=== PATIENT | female | born 1940 | race African-American/Black ===

== ENCOUNTER 2017-02-12 19:25 | Inpatient (IN) ==
[2017-02-12] MEDS ORDERED: FUROSEMIDE 100 MG/10 ML VIAL IV STA (19:47)
[2017-02-12] MEDS ORDERED: ALBUTEROL/IPRATROPIUM 3 ML NEB RESP TX STA (19:47)
--- NOTE | 2017-02-12 19:52 | Emergency Department Note ---
Arrival - Arrival Chief Complaint: Shortness of Breath Stated Complaint: SOB ED Nursing Triage Note: Patient to triage with c/o SOB that started all a sudden around 1600 this afternoon. Patient reports history of CHF and uses home O2. Patient states SOB is worse with excertion. BLE edema noted to triage. deminished breath sounds in triage. Mode of Arrival: Wheelchair Limitations: No Limitations Source: Patient Time Seen by Provider: 02/12/17 19:47 - History of Present Illness HPI Narrative: This 76-year-old black female with long-standing congestive heart failure home O2 dependent presents with complaints of abrupt onset of shortness of breath 4 hours ago. She denies any chest pain, nausea, vomiting, chills, fever, cough, or purulence with this episode. She likewise denies any ill health earlier today or in the past several days. She does have a history of asthma but denies any wheezing with this situation tonight. Currently at rest in bed she appears in no acute distress. Onset (ago): hour(s) (Patient presents 4 hours post onset of symptoms) Allergies/Adverse Reactions: Allergies Allergy/AdvReac Type Severity Reaction Status Date / Time No Known Allergies Allergy Verified 02/12/17 19:37 Home Medications: Home Medications Medication Instructions Recorded Confirmed Type Hydralazine HCl 100 mg PO BID 09/24/14 02/12/17 History Insulin NPH Hum/Reg Insulin Hm 34 unit SUBCUT DAILY W/SUPPER 09/24/14 02/12/17 History [Novolin 70-30 100 Unit/ml Vial] Insulin NPH Hum/Reg Insulin Hm 64 unit SUBCUT QAM 09/24/14 02/12/17 History [Novolin 70-30 100 Unit/ml Vial] Montelukast Tab [Singulair Tab] 10 mg PO QPM 09/24/14 02/12/17 History Potassium Chloride 20 meq PO QAM 09/24/14 02/12/17 History Carvedilol [Coreg] 12.5 mg PO BID 05/31/15 02/12/17 History Fluticasone 50 Mcg Nasal [place] 2 spray BOTH NARES DAILY PRN 02/26/16 02/12/17 History [Flonase Nasal [place]] Latanoprost [Latanoprost 0.005 % 1 drop BOTH EYES BEDTIME 02/26/16 02/12/17 History Oph Soln] Quinapril HCl 40 mg PO QAM 02/26/16 02/12/17 History Albuterol Inhaler [Proventil 1 puff INH Q6H PRN #1 inhaler 06/09/16 02/12/17 Rx Inhaler] Allopurinol 300 mg PO QAM 11/12/16 02/12/17 History Aspirin [Aspirin EC] 81 mg PO QAM 11/12/16 02/12/17 History Furosemide Tab [Lasix Tab] 80 mg PO BID 11/12/16 02/12/17 History Omeprazole 20 mg PO QAM 11/12/16 02/12/17 History Verapamil HCl [Verapamil Tab] 120 mg PO QAM 11/12/16 02/12/17 History Albuterol Sulfate [Albuterol Neb] 3 ml INH TID 02/12/17 02/12/17 History Fluticasone/Salmeterol 500-50 1 puff INH BID 02/12/17 02/12/17 History [Advair 500-50] Polyethylene Glycol Powder 17 gm PO QAM 02/12/17 02/12/17 History [Miralax] Review of System - Review of System 12 point system: reviewed and no additional remarkable complaints except as stated - Review of System Constitutional: Present: as per HPI Respiratory: Present: as per HPI Cardiovascular: Present: as per HPI Gastrointestinal: Present: as per HPI Medical,Surgical,& Family Hx - Medical History Cardio: History of: CHF, Hypertension Neurology: No history of: Seizures Endocrine: History of: Diabetes Mellitus (IDDM), Dyslipidemia, Endocrine Problems (SUPER MORBID OBESITY) Rheumatology: History of;: Gout Respiratory: History of: Asthma Gastrointestinal: History of: GERD, GI Problems (diarrhea) - Surgical History Abdominal Surgeries: Surgical HX of: Cholecystectomy, EGD Reproductive Surgeries: Surgical HX of;: Tubal Ligation - Family History Family History: Reports;: Family Cancer, Family Diabetes, Family Heart Disease, Family Hypertension - Social History Smoking Status: Never smoker Frequency of Alcohol Use: None Type of Drug Use: None Exam Physical Examination: GENERAL: Severely morbidly obese in no acute distress. HEENT: Normocephalic. No trauma. Moist mucous membranes. EOMI. PERRLA. ENT NML NECK: Supple. No adenopathy. CARDIAC: Regular. No murmurs. Heart rate 100 CHEST: Clear to auscultation. No respiratory distress. O2 sat 98% ABDOMEN: Soft. Nontender. Active bowel sounds. EXTREMITIES: No trauma. Normal ROM. 2+ pedal edema. Bilateral stasis dermatitis with early lymphedema SKIN: No diaphoresis. No rash. NEURO: Alert. Neuro intact no focal deficits. Vital Signs: Vital Signs Temperature 98.3 F 02/12/17 19:31 Pulse Rate 94 H 02/12/17 20:44 Respiratory Rate 20 02/12/17 20:44 Blood Pressure 201/139 02/12/17 19:31 O2 Sat by Pulse Oximetry 100 02/12/17 20:44 Course - Reevaluation(s) Reevaluation #1: Advised patient that with her poorly controlled blood pressure and underlying oxygen dependence that she would be best served by hospital admission for mop up treatment of her failure and reevaluation of her medical regimen.. - Consultations Consultation #1: Discussed with the hospitalist service who will admit for further evaluation treatment. Results - Labs CBC & BMP: 02/12/17 19:54 02/12/17 19:54 Labs: I have noted the bump in white blood cell count and borderline creatinine. Otherwise unremarkable laboratory results. - Impressions EKG: Atrial atrial fibrillation at 100. Incomplete right bundle branch block with old septal infarct. No acute injury pattern noted. - Diagnostic Findings Procedure: Chest x-ray: image reviewed by me, report reviewed by me (Mild cardiomegaly with no interval change in comparison with previous film.) Disposition Clinical Impression: Congestive heart failure, Uncontrolled hypertension, Home O2 dependent, Morbidly obese Case discussed with: patient, patient's family Disposition: Still a Patient Condition: Guarded Time of Disposition: 21:46
[2017-02-12] MEDS ORDERED: hydrALAZINE 20 MG/1 ML VIAL IV STA (19:54)
[2017-02-12] MEDS ORDERED: hydrALAZINE 20 MG/1 ML VIAL ONE (20:21)
[2017-02-12] MEDS ORDERED: FUROSEMIDE 100 MG/10 ML VIAL ONE (20:21)
[2017-02-12 20:32] LABS: Basophils % 0.3 % (0.0-0.8); Eosinophils # 0.1 10*3/uL (0.0-0.87); Hematocrit 36.8 VOL% (35.7-47.0); Hemoglobin 11.9 GM/DL (12.0-16.0); Immature Granulocytes % 0.4 %; Immature Granulocytes Absolute 0.06 #; Lymphocytes # 2.3 10*3/uL (1.4-4.0); Mean Corpuscular HGB Conc 32.3 GM/DL (32-36); Mean Corpuscular Hemoglobin 30 PG (27-34); Mean Corpuscular Volume 93.6 FL (87-102); Mean Platelet Volume 11.1 FL (9.6-12.0); Monocytes # 0.9 10*3/uL (0.11-0.8); Monocytes % 6.9 % (1.7-12.7); Neutrophils % 74.4 % (38.7-73.9); Platelet Count 277 T/CUMM (130-400); Red Blood Count 3.93 MC/CUMM (3.8-5.5); Red Cell Distribution Width 15.6 % (9.3-17.3); White Blood Count 13.5 T/CUMM (4-12)
[2017-02-12 20:49] LABS: PT Patient Result 10.1 SECS; Partial Thromboplastin Time 27.3 SECS (0-40)
[2017-02-12 20:51] LABS: Alanine Aminotransferase 36 U/L (13-56); Albumin 3.4 G/DL (3.4-5.0); Alkaline Phosphatase 143 U/L (45-117); Aspartate Amino Transferase 29 U/L (0-37); Blood Urea Nitrogen 22 MG/DL (7-18); Calcium 9.4 MG/DL (8.5-10.1); Glucose 172 MG/DL (74-106); Osmolality,Calculated 287.3 MOS/KG (273-304); Potassium 5.1 MMOL/L (3.5-5.1); Sodium 141 MMOL/L (136-145); Troponin I Only < 0.015 NG/ML (0.00-0.045)
[2017-02-12 21:26] LABS: Apearance,Urine CLEAR (Clear); Bilirubin,Urine Negative (Negative); Blood, Urine Negative (Negative); Glucose,Urine (UA) Negative (Negative); Ketones,Urine Negative (Negative); Mucus,Urine Occasional /LPF (Occasional); Nitrite,Urine Negative (Negative); Protein,Urine 100 MG/DL; Squamous Epithelial Cell,Urine Occasional /HPF (0-10); Urine Color Yellow (Yellow); Urine Specific Gravity 1.011 (1.001-1.035)
--- NOTE | 2017-02-12 22:11 | Hospitalist History & Physical ---
Assessment and Plan (1) Hypertensive crisis Status: Acute Assessment and plan: Patient has uncontrolled HTN which most likely triggered an acute pulmonary edema. Her BUN/Cr are also mildly elevated.Patient states good compliance to meds. Plan Telemetry Serial Cardiac enzymes Resume home meds and adjust doses accordingly IV diuretics TSH,Lipids Echo ASA Nebs treatment Current Visit: Yes (2) Acute dyspnea Status: Acute Assessment and plan: most likely due poorly controlled HTN to r/o ACS vs PE Plan Telemetry Lovenox D-dimer, doppler of the legs, VQ scan if D-dimer is positive IV Lasix, nebs, oxygen ABG Control Bp Serial Cardiac enzymes Current Visit: Yes (3) Acute renal failure (ARF) Status: Acute Assessment and plan: -mild, avoid Nephrotoxics Bmp in am Current Visit: Yes (4) CHF exacerbation Status: Acute Assessment and plan: due to poorly controlled BP Plan See treatment plan above Fluid restriction, Echo Cardiology consult Current Visit: Yes (5) IDDM (insulin dependent diabetes mellitus) Status: Acute Assessment and plan: resume home meds, HbA1c level, SSC and accucheks Current Visit: Yes (6) Dyslipidemia Status: Acute Assessment and plan: will get Lipid profile Current Visit: Yes (7) Gout Status: Acute Assessment and plan: Patient is not currently having acute attacks, will hold off on Allopurinol due to RF for now. Will give [place] bid for prevention for now Current Visit: Yes (8) Atrial fibrillation Status: Acute Assessment and plan: EKG showed Atrial atrial fibrillation at 100 in the ER. This is ?new onset vs paroxysmal. Plan Telemetry Continue bblockers and Lovenox Echo and Cardiology to see Current Visit: Yes History of Present Illness Chief complaint: SOB History of present illness: Ms. Rodriguez is a 76 year old morbidly obese female with a history of CHF on Home 02, HTN, IDDM, dyslipidemia,Gout who was well until around 4pm this afternoon when she developed a sudden onset of SOB which progressively worsened. She denies associated chest pain, chest tightness. No wheezing, nausea, vomiting, palpitations and diaphoresis. She does have an associated orthopnea, PND, and bilateral leg sweliing and pain. There was no cough, fever, chills and rigor.Patient states she used her blood pressure medications as prescribed prior to onset of symptoms.No abdominal pain, swelling or bleeding problems. She denies previous history CAD, Asthma and also denies recent long distance travel and immobility.No history of headaches, photophobia, focal weakness or syncopal episode. Upon arrival to the ER, her blood pressure was high at 201/139 and her labs showed mildly elevated BUN/Cr-22/1.4, WBC-13.5. EKG showed Atrial atrial fibrillation at 100. Incomplete right bundle branch block with old septal infarct. No acute injury pattern noted. Chest x-ray as per ER MD showed Mild cardiomegaly with no interval change in comparison with previous film.Patient was given some breathing treatments,IV hydralazine and IV Lasix and she is on admission for further care. Home Medications Medication Instructions Recorded Confirmed Type Hydralazine HCl 100 mg PO BID 09/24/14 02/12/17 History Insulin NPH Hum/Reg Insulin Hm 34 unit SUBCUT DAILY W/SUPPER 09/24/14 02/12/17 History [Novolin 70-30 100 Unit/ml Vial] Insulin NPH Hum/Reg Insulin Hm 64 unit SUBCUT QAM 09/24/14 02/12/17 History [Novolin 70-30 100 Unit/ml Vial] Montelukast Tab [Singulair Tab] 10 mg PO QPM 09/24/14 02/12/17 History Potassium Chloride 20 meq PO QAM 09/24/14 02/12/17 History Carvedilol [Coreg] 12.5 mg PO BID 05/31/15 02/12/17 History Fluticasone 50 Mcg Nasal [place] 2 spray BOTH NARES DAILY PRN 02/26/16 02/12/17 History [Flonase Nasal [place]] Latanoprost [Latanoprost 0.005 % 1 drop BOTH EYES BEDTIME 02/26/16 02/12/17 History Oph Soln] Quinapril HCl 40 mg PO QAM 02/26/16 02/12/17 History Albuterol Inhaler [Proventil 1 puff INH Q6H PRN #1 inhaler 06/09/16 02/12/17 Rx Inhaler] Allopurinol 300 mg PO QAM 11/12/16 02/12/17 History Aspirin [Aspirin EC] 81 mg PO QAM 11/12/16 02/12/17 History Furosemide Tab [Lasix Tab] 80 mg PO BID 11/12/16 02/12/17 History Omeprazole 20 mg PO QAM 11/12/16 02/12/17 History Verapamil HCl [Verapamil Tab] 120 mg PO QAM 11/12/16 02/12/17 History Albuterol Sulfate [Albuterol Neb] 3 ml INH TID 02/12/17 02/12/17 History Fluticasone/Salmeterol 500-50 1 puff INH BID 02/12/17 02/12/17 History [Advair 500-50] Polyethylene Glycol Powder 17 gm PO QAM 02/12/17 02/12/17 History [Miralax] Allergies Allergy/AdvReac Type Severity Reaction Status Date / Time No Known Allergies Allergy Verified 02/12/17 19:37 Medical,Surgical,& Family Hx - Medical History Cardio: History of: CHF, Hypertension Neurology: No history of: Seizures Endocrine: History of: Diabetes Mellitus (IDDM), Dyslipidemia, Endocrine Problems (SUPER MORBID OBESITY) Rheumatology: History of;: Gout Respiratory: History of: Asthma Gastrointestinal: History of: GERD, GI Problems (diarrhea) - Surgical History Abdominal Surgeries: Surgical HX of: Cholecystectomy, EGD Reproductive Surgeries: Surgical HX of;: Tubal Ligation - Family History Family History: Reports;: Family Cancer, Family Diabetes, Family Heart Disease, Family Hypertension - Social History Smoking Status: Never smoker Frequency of Alcohol Use: None Type of Drug Use: None 12 point system: reviewed and no additional remarkable complaints except as stated Exam - Constitutional Vitals: Period Temp Pulse Resp BP Sys/[place] Pulse Ox Last 24 Hr 98.3 F-98.3 F 94-103 20-26 201-201/139-139 98-100 General appearance: mild distress, morbidly obese - Head Head exam: Present: normal inspection - Respiratory Respiratory exam: Present: decreased breath sounds - Cardiovascular Cardiovascular exam: Present: other (s1 and s2) - GI/Abdominal GI/Abdominal exam: Present: normal bowel sounds - Extremities Exam Extremities exam: Present: edema - Neurological Exam Neurological exam: Present: alert, oriented X3 Results - Labs CBC & BMP: 02/12/17 19:54 02/12/17 19:54 Lab Results: I have reviewed the past 24 hour labs
[2017-02-13] MEDS ORDERED: MORPHINE 2 MG/1 ML SYRINGE IV PRN (00:42)
[2017-02-13] MEDS ORDERED: GLUCAGON 1 MG VIAL IM PRN (00:42)
[2017-02-13] MEDS ORDERED: DEXTROSE 50% 25 GM/50 ML SYRINGE IV PRN (00:42)
[2017-02-13] MEDS ORDERED: ACETAMINOPHEN 325 MG TABLET PO PRN (00:42)
[2017-02-13] MEDS ORDERED: ALBUTEROL 2.5 MG/3 ML NEB RESP TX PRN (00:42)
[2017-02-13] MEDS ORDERED: FLUTICASONE 50 MCG NASAL SPRAY 16 GM BOTTLE BOTH NARES PRN (00:42)
[2017-02-13] MEDS ORDERED: PNEUMOCOCCAL VACCINE (13 VALENT) 0.5 ML SYRINGE IM ONE (00:55)
[2017-02-13] MEDS: CARVEDILOL 12.5 MG TABLET PO SCH ×3 (01:00→21:07)
[2017-02-13 02:06] LABS: ABG HCO3 27.5 MMOL/L (20-26); ABG Oxygen Saturation 95.6 % (95-100); ABG PCO2 46.3 MM HG (35-48); ABG PH 7.391 (7.35-7.45); ABG PO2 76.4 MM HG (80-95); ABG TCO2 28.9 MMOL/L (23-27); Allen Test Positive
[2017-02-13 02:14] LABS: Free T4 (Free Thyroxine) 1.07 NG/DL (0.76-1.46); Troponin I Only < 0.015 NG/ML (0.00-0.045)
[2017-02-13 02:22] LABS: Apearance,Urine CLEAR (Clear); Bilirubin,Urine Negative (Negative); Blood, Urine Moderate mg/dL (Negative); Glucose,Urine (UA) Negative (Negative); Hyaline Casts,Urine 1 /LPF (0-3); Ketones,Urine Negative (Negative); Mucus,Urine Occasional /LPF (Occasional); Nitrite,Urine Negative (Negative); Protein,Urine Negative; RBC,Urine 60 /HPF (0-4); Squamous Epithelial Cell,Urine Occasional /HPF (0-10); Urine Color Colorless (Yellow); Urine Specific Gravity 1.004 (1.001-1.035); Urine Urobilinogen < 2.0 EU/DL (0.2-1.0); WBC,Urine 10 /HPF (0-6)
[2017-02-13 07:46] LABS: Bilirubin,Total 1.2 MG/DL (0.2-1.0); Calcium 9.6 MG/DL (8.5-10.1); Magnesium 2.1 MG/DL (1.8-2.4); Osmolality,Calculated 287.3 MOS/KG (273-304); Potassium 4.4 MMOL/L (3.5-5.1); Risk Ratio 2.65; Total Protein 7.1 G/DL (6.4-8.3); Troponin I Only 0.015 NG/ML (0.00-0.045)
--- NOTE | 2017-02-13 07:53 | EKG Report ---
Stationary ECG Study [facility] ER Test Date: 02/12/2017 7:31:08 PM Pat Name: SHAQUILLE POND Department: Room: 519 Gender: F Feller Seam Operator: Karen : 1940 Requested by: Tye Somers Order Number: [id number] Reading MD: MICHELLE WILSON Intervals [place] Rate: 103 P: 999 UT: 0 QRS: -78 QRSD: 113 T: 86 QT: 337 QTc: 397 Interpretive Statements ATRIAL FIBRILLATION WITH RAPID VENTRICULAR RESPONSE LOW QRS VOLTAGE IN CHEST LEADS CONSISTENT WITH PULMONARY DISEASE INCOMPLETE RIGHT BUNDLE BRANCH BLOCK LEFT ANTERIOR FASCICULAR BLOCK Electronically Signed On 02-14-17 11:32:43 CDT by MICHELLE WILSON [email or web address]
--- NOTE | 2017-02-13 08:02 | XRay Report ---
Exam: XR chest 2V Date: 02/12/2017 7:48 PM Indication: Shortness of breath Comparison: 01/02/2017 Technical: PA lateral Findings: Cardiomegaly is present. Tiny low volume effusions are present with minimal atelectatic change in the bases bilaterally. Oxygen tubing is present. Degenerative change present thoracic spine. Previous cholecystectomy. No pneumothorax. Impression: 1. Cardiomegaly with tiny low volume effusions and basilar atelectasis PROCEDURE INTERPRETED AT [facility] DEPARTMENT OF RADIOLOGY Final Report Signed by: Dr. Joaquin Moise
[2017-02-13 08:52] LABS: Basophils % 0.3 % (0.0-0.8); Eosinophils # 0.1 10*3/uL (0.0-0.87); Eosinophils % 0.8 % (0.00-10.9); Hematocrit 33.8 VOL% (35.7-47.0); Immature Granulocytes % 0.5 %; Immature Granulocytes Absolute 0.07 #; Lymphocytes # 2.1 10*3/uL (1.4-4.0); Mean Corpuscular HGB Conc 32.5 GM/DL (32-36); Mean Corpuscular Hemoglobin 30 PG (27-34); Mean Corpuscular Volume 92.3 FL (87-102); Mean Platelet Volume 11.3 FL (9.6-12.0); Monocytes # 1.2 10*3/uL (0.11-0.8); Monocytes % 8.7 % (1.7-12.7); Neutrophils # 9.8 10*3/uL (1.4-7.4); Neutrophils % 73.7 % (38.7-73.9); Platelet Count 254 T/CUMM (130-400); Red Blood Count 3.66 MC/CUMM (3.8-5.5); Red Cell Distribution Width 15.5 % (9.3-17.3); White Blood Count 13.3 T/CUMM (4-12)
[2017-02-13] MEDS ORDERED: PANTOPRAZOLE 40 MG TABLET PO SCH (09:00)
[2017-02-13] MEDS: VERAPAMIL 120 MG TABLET PO SCH (09:06)
[2017-02-13] MEDS: COLCHICINE 0.6 MG TABLET PO SCH ×2 (09:06→21:07)
[2017-02-13] MEDS: PANTOPRAZOLE 40 MG TABLET PO SCH (09:07)
[2017-02-13] MEDS: INSULIN NPH/REGULAR 70/30 100 UNIT/ML SUBCUT SCH (09:07)
[2017-02-13] MEDS: ASPIRIN EC 81 MG TABLET PO SCH (09:07)
[2017-02-13] MEDS: POLYETHYLENE GLYCOL POWDER 17 GM PACK PO SCH (09:07)
[2017-02-13] MEDS: ENOXAPARIN 150 MG/ML SYRINGE SUBCUT SCH ×2 (09:07→21:07)
[2017-02-13] MEDS: INSULIN REGULAR 100 UNIT/ML SUBCUT SCH ×4 (09:08→21:08)
[2017-02-13] MEDS: FLUTICASONE/SALMETEROL 500-50 DISKUS 14 DOSE INH SCH ×2 (09:33→21:08)
--- NOTE | 2017-02-13 10:41 | Ultrasound Report ---
Exam: US venous doppler LE BI Indication: Leg pain and swelling Date: 02/13/2017 12:42 AM Findings: Grayscale color flow duplex/Doppler imaging and spectral analysis waveform imaging was performed with real-time ultrasound with image stored and captured. The right common femoral, superficial femoral, popliteal saphenous veins are patent with normal augmentation and compression. There is no evidence of popliteal or Briseno's cyst. Normal wave form analysis present. Normal color flow The left common femoral, superficial femoral, popliteal saphenous veins are patent with normal augmentation and compression. There is evidence of popliteal or Briseno's cyst. This measures 2.6 x 5 x 1.3 cm Normal wave form analysis present. Normal color flow Impression: 1. No DVT 2. Left popliteal Briseno's cyst measuring up to 5 cm PROCEDURE INTERPRETED AT [facility] DEPARTMENT OF RADIOLOGY Final Report Signed by: Dr. Joaquin Moise
--- NOTE | 2017-02-13 12:47 | Hospitalist Progress Note ---
Assessment and Plan (1) Acute dyspnea Status: Acute Assessment and plan: Continue current plan of care. Supplemental O2. Doppler performed today no evidence of DVT. Continue IV Lasix and nebulizer. Current Visit: Yes (2) Acute renal failure (ARF) Status: Acute Assessment and plan: Avoid nephrotoxic agents. Daily BMPs Current Visit: Yes (3) Atrial fibrillation Status: Acute Assessment and plan: Cardiology consult pending. Continue cardiac monitoring. Patient controlled rate. Continue Lovenox and beta blockers Current Visit: Yes (4) CHF exacerbation Status: Acute Assessment and plan: IV Lasix. Cardiology to see. Current Visit: Yes Hospitalist: Subjective Interval history: 76-year-old black female patient with a history of CHF, hypertension, diabetes, dyslipidemia that presented to the ED for evaluation of sudden onset of shortness of breath. On admission noted to be in mild renal failure with CHF and uncontrolled hypertension. Patient was seen and examined this morning with daughter present at the bedside. Patient alert and oriented with no complaints. Dyspnea has resolved. Supplemental O2 use. Blood pressure has decreased. We will continue current plan of care. Consult Sleep medicine for possible outpatient sleep study for patient. Exam - Constitutional Vitals: Period Temp Pulse Resp BP Sys/[place] Pulse Ox Last 24 Hr 97.4 F-98.4 F 84-114 19-26 142-201/69-139 97-100 General appearance: no acute distress, over weight - Head Head exam: Present: normal inspection, normocephalic - Eye Eye exam: Present: EOMI Pupils: Present: HIRAL - Respiratory Respiratory exam: Present: clear to auscultation bilaterally. Absent: wheezes - Cardiovascular Cardiovascular exam: Present: regular rate and rhythm - GI/Abdominal GI/Abdominal exam: Present: normal bowel sounds, soft. Absent: tenderness - Extremities Exam Extremities exam: Present: normal inspection, normal capillary refill - Neurological Exam Neurological exam: Present: alert, oriented X3 - Psychiatric Psychiatric exam: Present: normal affect, normal mood Results - Labs CBC & BMP: 02/13/17 08:31 02/13/17 06:39 Lab Results: I have reviewed the past 24 hour labs
--- NOTE | 2017-02-13 15:08 | Cardiology Consult Note ---
Assessment and Plan - Time spent with patient Time spent with patient: Greater than 30 minutes (Chart review, exam, documentation) (1) Diabetes Status: Chronic Current Visit: Yes Qualifiers: Diabetes mellitus type: type 2 (2) Atrial fibrillation Status: Chronic Current Visit: Yes Qualifiers: Atrial fibrillation type: chronic Qualified Code(s): I48.2 - Chronic atrial fibrillation (3) CHF exacerbation Status: Chronic Assessment and plan: Heart failure with preserved ejection fraction Current Visit: Yes Qualifiers: Congestive heart failure type: diastolic Qualified Code(s): I50.33 - Acute on chronic diastolic (congestive) heart failure (4) Dyslipidemia Status: Acute Current Visit: Yes (5) Gout Status: Chronic Current Visit: Yes Qualifiers: Gout site: foot (6) Hypertensive crisis Status: Acute Current Visit: Yes History of Present Illness - Data of Consult Patient: known to practice within the last 3 years Consult date: 02/13/17 Requesting Physician: Gisela Gandhi - Consult Narrative Reason for consult: Heart failure History of present illness: Ms. Rodriguez is a 76 year old female morbidly obese diabetic female with long- standing history of severe LVH chronic right bundle branch block and chronic atrial fibrillation with diastolic heart failure. She has a history of recurrent heart failure with preserved ejection fraction. She presents with tachypalpitations and hypertension and heart failure. She has been admitted to the hospitalist service and I have been consulted to see. The patient had transthoracic echo on 08/26/2016 showed ejection fraction 55% with indeterminate systolic parameters because of her atrial fibrillation she also had a right ventricular systolic pressure estimated to be 39 mmHg plus the right atrial pressure she had mild mitral regurgitation trace pulmonic insufficiency and mild tricuspid insufficiency the atria are both enlarged. There was calcific aortic valve with excellent excursion no evidence of stenosis or insufficiency. CC: Rayray Handley Jr., MD - Home Medications and Allergies Home Medications: Home Medications Medication Instructions Recorded Confirmed Type Hydralazine HCl 100 mg PO BID 09/24/14 02/12/17 History Insulin NPH Hum/Reg Insulin Hm 34 unit SUBCUT DAILY W/SUPPER 09/24/14 02/12/17 History [Novolin 70-30 100 Unit/ml Vial] Insulin NPH Hum/Reg Insulin Hm 64 unit SUBCUT QAM 09/24/14 02/12/17 History [Novolin 70-30 100 Unit/ml Vial] Montelukast Tab [Singulair Tab] 10 mg PO QPM 09/24/14 02/12/17 History Potassium Chloride 20 meq PO QAM 09/24/14 02/12/17 History Carvedilol [Coreg] 12.5 mg PO BID 05/31/15 02/12/17 History Fluticasone 50 Mcg Nasal [place] 2 spray BOTH NARES DAILY PRN 02/26/16 02/12/17 History [Flonase Nasal [place]] Latanoprost [Latanoprost 0.005 % 1 drop BOTH EYES BEDTIME 02/26/16 02/12/17 History Oph Soln] Quinapril HCl 40 mg PO QAM 02/26/16 02/12/17 History Albuterol Inhaler [Proventil 1 puff INH Q6H PRN #1 inhaler 06/09/16 02/12/17 Rx Inhaler] Allopurinol 300 mg PO QAM 11/12/16 02/12/17 History Aspirin [Aspirin EC] 81 mg PO QAM 11/12/16 02/12/17 History Furosemide Tab [Lasix Tab] 80 mg PO BID 11/12/16 02/12/17 History Omeprazole 20 mg PO QAM 11/12/16 02/12/17 History Verapamil HCl [Verapamil Tab] 120 mg PO QAM 11/12/16 02/12/17 History Albuterol Sulfate [Albuterol Neb] 3 ml INH TID 02/12/17 02/12/17 History Fluticasone/Salmeterol 500-50 1 puff INH BID 02/12/17 02/12/17 History [Advair 500-50] Polyethylene Glycol Powder 17 gm PO QAM 02/12/17 02/12/17 History [Miralax] Allergies/Adverse Reactions: Allergies Allergy/AdvReac Type Severity Reaction Status Date / Time No Known Allergies Allergy Verified 02/12/17 19:37 - Constitutional Constitutional: Present: fatigue, increased appetite, weakness, weight gain. Absent: anorexia, chills, fever(s) - EENT Eyes: Absent: blurry vision, diplopia Ears: Absent: decreased hearing, ear discharge Nose, mouth and throat: Absent: dysphagia, hoarseness, lip swelling, neck mass, neck pain, sore throat - Cardiovascular Cardiovascular: Present: dyspnea, dyspnea on exertion, edema, palpitations, PND. Absent: chest pain at rest - Respiratory Respiratory: Present: dyspnea on exertion. Absent: cough - Gastrointestinal Gastrointestinal: Present: dysphagia. Absent: abdominal pain, dyspepsia - Genitourinary Genitourinary: Absent: difficulty urinating, dysuria - Musculoskeletal Musculoskeletal: Present: arthralgias, muscle weakness, myalgias, other (Pain in her right great toe) - Neurological Neurological: Absent: abnormal gait, disequilibrium, radicular pain, syncope - Psychiatric Psychiatric: Present: anxiety, depression. Absent: confusion, memory loss - Endocrine Endocrine: Present: heat intolerance. Absent: cold intolerance - Hematologic/Lymphatic Hematologic/Lymphatic: Absent: easy bleeding, easy bruising Medical,Surgical,& Family Hx - Medical History Cardio: History of: CHF (With preserved ejection fraction), Hypertension Psychological: No history of: Anxiety Disorders Neurology: No history of: Seizures HEENT: History of: Glaucoma Endocrine: History of: Diabetes Mellitus (IDDM), Dyslipidemia, Endocrine Problems (SUPER MORBID OBESITY) Rheumatology: History of;: Gout Respiratory: History of: Asthma Gastrointestinal: History of: GERD, GI Problems (diarrhea) Musculoskeletal: History of: Musculoskeletal Problems (Pain in the right great toe with history of gout) Other: History of: Miscellaneous Medical Problems (Cyst removed surgically from left shoulder) - Surgical History Thoracic Surgeries: Patient denies;: Lobectomy Neurologic Surgeries: Patient denies: Neurologic Surgery Abdominal Surgeries: Surgical HX of: Cholecystectomy, EGD Reproductive Surgeries: Surgical HX of;: Tubal Ligation Patient denies;: Genitourinary Surgery - Family History Family History: Reports;: Family Cancer, Family Diabetes, Family Heart Disease, Family Hypertension - Social History Smoking Status: Never smoker Frequency of Alcohol Use: None Type of Drug Use: None Lives With:: Spouse Functional capacity: independent ambulation Physical Examination Vital Signs Temp Pulse Resp BP Pulse Ox 98.3 F 103 H 26 H 201/139 98 02/12/17 19:31 02/12/17 19:31 02/12/17 19:31 02/12/17 19:31 02/12/17 19:31 General: Present: Appears Well (Morbidly obese no acute distress) HEENT: Present: Other (ASA 4 airway) Neck: Present: Supple Neck, Midline Trachea Cardiac: Present: Irregularly Regular (Atrial fibrillation with controlled rate) Lungs: Present: Normal Exam Neuro: Present: Cranial Nerve 2-12 Intact Abdomen: Present: Soft, Active Bowel Sounds, Unremarkable Skin: Present: Clear Musculoskeletal: Present: Erythematous Joints (Right great toe is mildly erythematous and tender to touch) Extremities: Present: Edema (Trace edema) Result/EKG - Labs CBC & BMP: 02/13/17 08:31 02/13/17 06:39 Labs: Laboratory Results - last 24 hr 02/12/17 02/12/17 02/12/17 19:54 19:54 19:54 WBC 13.5 H RBC 3.93 Hgb 11.9 L Hct 36.8 MCV 93.6 MCH 30 MCHC 32.3 RDW 15.6 Plt Count 277 MPV 11.1 Neut % (Auto) 74.4 H Lymph % (Auto) 17.0 L [place] % (Auto) 6.9 Eos % (Auto) 1.0 Baso % (Auto) 0.3 Neut # (Auto) 10.0 H Lymph # (Auto) 2.3 [place] # (Auto) 0.9 H Eos # (Auto) 0.1 Baso # (Auto) 0.0 Immature Gran % 0.4 Nucleated RBC % 0.0 Immature Gran # 0.06 Nucleated RBCs # 0.00 Immature Plt Fraction 0.0 INR 1.0 PT Patient/Control Mix 10.1 D-Dimer, Quantitative Circ Anticoag PTT 27.3 ABG pH ABG pCO2 ABG pO2 ABG HCO3 ABG Total CO2 ABG O2 Saturation ABG Base Excess FiO2 Sodium 141 Potassium 5.1 Chloride 109 H Carbon Dioxide 27 Anion Gap 10.1 BUN 22 H Creatinine 1.40 H GFR Calculation 60 BUN/Creatinine Ratio 15.00 Glucose 172 H POC Glucose Calculated Osmolality 287.3 Calcium 9.4 Magnesium Total Bilirubin 0.60 AST 29 ALT 36 Alkaline Phosphatase 143 H Total Creatine Kinase 100 CK-MB (CK-2) 2.2 Troponin I < 0.015 B-Natriuretic Peptide Total Protein 8.0 Albumin 3.4 Globulin 4.6 H Albumin/Globulin Ratio 0.7 L Triglycerides Cholesterol LDL Cholesterol VLDL Cholesterol HDL Cholesterol Heart Disease Risk Ratio Free T4 TSH 3rd Generation Urine Color Urine Appearance Urine pH Ur Specific [place] Urine Protein Urine Glucose (UA) Urine Ketones Urine Blood Urine Nitrate Urine Bilirubin Urine Urobilinogen Urine Leukocytes Urine RBC Urine WBC Ur Squamous Epith Cells Hyaline Casts Urine Mucus Ur Culture Indicated? 02/12/17 02/12/17 02/13/17 19:54 19:54 00:06 WBC RBC Hgb Hct MCV MCH MCHC RDW Plt Count MPV Neut % (Auto) Lymph % (Auto) [place] % (Auto) Eos % (Auto) Baso % (Auto) Neut # (Auto) Lymph # (Auto) [place] # (Auto) Eos # (Auto) Baso # (Auto) Immature Gran % Nucleated RBC % Immature Gran # Nucleated RBCs # Immature Plt Fraction INR PT Patient/Control Mix D-Dimer, Quantitative Circ Anticoag PTT ABG pH ABG pCO2 ABG pO2 ABG HCO3 ABG Total CO2 ABG O2 Saturation ABG Base Excess FiO2 Sodium Potassium Chloride Carbon Dioxide Anion Gap BUN Creatinine GFR Calculation BUN/Creatinine Ratio Glucose POC Glucose 162 H Calculated Osmolality Calcium Magnesium Total Bilirubin AST ALT Alkaline Phosphatase Total Creatine Kinase CK-MB (CK-2) Troponin I B-Natriuretic Peptide 140 H Total Protein Albumin Globulin Albumin/Globulin Ratio Triglycerides Cholesterol LDL Cholesterol VLDL Cholesterol HDL Cholesterol Heart Disease Risk Ratio Free T4 TSH 3rd Generation Urine Color Yellow Urine Appearance Clear Urine pH 6.0 Ur Specific [place] 1.011 Urine Protein 100 Urine Glucose (UA) Negative Urine Ketones Negative Urine Blood Negative Urine Nitrate Negative Urine Bilirubin Negative Urine Urobilinogen 2.0 H Urine Leukocytes Negative Urine RBC Urine WBC Ur Squamous Epith Cells Occasional Hyaline Casts Urine Mucus Occasional Ur Culture Indicated? Not indicated 02/13/17 02/13/17 02/13/17 01:05 01:28 01:28 WBC RBC Hgb Hct MCV MCH MCHC RDW Plt Count MPV Neut % (Auto) Lymph % (Auto) [place] % (Auto) Eos % (Auto) Baso % (Auto) Neut # (Auto) Lymph # (Auto) [place] # (Auto) Eos # (Auto) Baso # (Auto) Immature Gran % Nucleated RBC % Immature Gran # Nucleated RBCs # Immature Plt Fraction INR PT Patient/Control Mix D-Dimer, Quantitative 1.2 Circ Anticoag PTT ABG pH ABG pCO2 ABG pO2 ABG HCO3 ABG Total CO2 ABG O2 Saturation ABG Base Excess FiO2 Sodium Potassium Chloride Carbon Dioxide Anion Gap BUN Creatinine GFR Calculation BUN/Creatinine Ratio Glucose POC Glucose Calculated Osmolality Calcium Magnesium Total Bilirubin AST ALT Alkaline Phosphatase Total Creatine Kinase 72 D CK-MB (CK-2) 1.8 Troponin I < 0.015 B-Natriuretic Peptide Total Protein Albumin Globulin Albumin/Globulin Ratio Triglycerides Cholesterol LDL Cholesterol VLDL Cholesterol HDL Cholesterol Heart Disease Risk Ratio Free T4 1.07 TSH 3rd Generation Urine Color Colorless Urine Appearance Clear Urine pH 5.0 Ur Specific [place] 1.004 Urine Protein Negative Urine Glucose (UA) Negative Urine Ketones Negative Urine Blood Moderate Urine Nitrate Negative Urine Bilirubin Negative Urine Urobilinogen < 2.0 H Urine Leukocytes Small H Urine RBC 60 Urine WBC 10 Ur Squamous Epith Cells Occasional Hyaline Casts 1 Urine Mucus Occasional Ur Culture Indicated? Ordered separately 02/13/17 02/13/17 02/13/17 01:28 02:00 06:39 WBC RBC Hgb Hct MCV MCH MCHC RDW Plt Count MPV Neut % (Auto) Lymph % (Auto) [place] % (Auto) Eos % (Auto) Baso % (Auto) Neut # (Auto) Lymph # (Auto) [place] # (Auto) Eos # (Auto) Baso # (Auto) Immature Gran % Nucleated RBC % Immature Gran # Nucleated RBCs # Immature Plt Fraction INR PT Patient/Control Mix D-Dimer, Quantitative Circ Anticoag PTT ABG pH 7.391 ABG pCO2 46.3 ABG pO2 76.4 L ABG HCO3 27.5 H ABG Total CO2 28.9 H ABG O2 Saturation 95.6 ABG Base Excess 2.0 FiO2 28.00 Sodium 141 Potassium 4.4 Chloride 106 Carbon Dioxide 32 Anion Gap 7.4 BUN 21 H Creatinine 1.50 H GFR Calculation 57 BUN/Creatinine Ratio 14.00 Glucose 177 H POC Glucose Calculated Osmolality 287.3 Calcium 9.6 Magnesium 2.1 Total Bilirubin 1.20 H AST 15 ALT 29 Alkaline Phosphatase 131 H Total Creatine Kinase CK-MB (CK-2) Troponin I B-Natriuretic Peptide Total Protein 7.1 Albumin 3.0 L Globulin 4.1 H Albumin/Globulin Ratio 0.7 L Triglycerides 70 Cholesterol 127 LDL Cholesterol 66.0 VLDL Cholesterol 14.0 HDL Cholesterol 48 Heart Disease Risk Ratio 2.65 Free T4 TSH 3rd Generation 5.680 H Urine Color Urine Appearance Urine pH Ur Specific [place] Urine Protein Urine Glucose (UA) Urine Ketones Urine Blood Urine Nitrate Urine Bilirubin Urine Urobilinogen Urine Leukocytes Urine RBC Urine WBC Ur Squamous Epith Cells Hyaline Casts Urine Mucus Ur Culture Indicated? 02/13/17 02/13/17 02/13/17 06:39 06:39 07:13 WBC RBC Hgb Hct MCV MCH MCHC RDW Plt Count MPV Neut % (Auto) Lymph % (Auto) [place] % (Auto) Eos % (Auto) Baso % (Auto) Neut # (Auto) Lymph # (Auto) [place] # (Auto) Eos # (Auto) Baso # (Auto) Immature Gran % Nucleated RBC % Immature Gran # Nucleated RBCs # Immature Plt Fraction INR PT Patient/Control Mix D-Dimer, Quantitative Circ Anticoag PTT ABG pH ABG pCO2 ABG pO2 ABG HCO3 ABG Total CO2 ABG O2 Saturation ABG Base Excess FiO2 Sodium Potassium Chloride Carbon Dioxide Anion Gap BUN Creatinine GFR Calculation BUN/Creatinine Ratio Glucose POC Glucose 206 H Calculated Osmolality Calcium Magnesium Total Bilirubin AST ALT Alkaline Phosphatase Total Creatine Kinase 59 CK-MB (CK-2) 1.5 Troponin I 0.015 B-Natriuretic Peptide 158 H Total Protein Albumin Globulin Albumin/Globulin Ratio Triglycerides Cholesterol LDL Cholesterol VLDL Cholesterol HDL Cholesterol Heart Disease Risk Ratio Free T4 TSH 3rd Generation Urine Color Urine Appearance Urine pH Ur Specific [place] Urine Protein Urine Glucose (UA) Urine Ketones Urine Blood Urine Nitrate Urine Bilirubin Urine Urobilinogen Urine Leukocytes Urine RBC Urine WBC Ur Squamous Epith Cells Hyaline Casts Urine Mucus Ur Culture Indicated? 02/13/17 02/13/17 08:31 11:23 WBC 13.3 H RBC 3.66 L Hgb 11.0 L Hct 33.8 L MCV 92.3 MCH 30 MCHC 32.5 RDW 15.5 Plt Count 254 MPV 11.3 Neut % (Auto) 73.7 Lymph % (Auto) 16.0 L [place] % (Auto) 8.7 Eos % (Auto) 0.8 Baso % (Auto) 0.3 Neut # (Auto) 9.8 H Lymph # (Auto) 2.1 [place] # (Auto) 1.2 H Eos # (Auto) 0.1 Baso # (Auto) 0.0 Immature Gran % 0.5 Nucleated RBC % 0.0 Immature Gran # 0.07 Nucleated RBCs # 0.00 Immature Plt Fraction 0.0 INR PT Patient/Control Mix D-Dimer, Quantitative Circ Anticoag PTT ABG pH ABG pCO2 ABG pO2 ABG HCO3 ABG Total CO2 ABG O2 Saturation ABG Base Excess FiO2 Sodium Potassium Chloride Carbon Dioxide Anion Gap BUN Creatinine GFR Calculation BUN/Creatinine Ratio Glucose POC Glucose 183 H Calculated Osmolality Calcium Magnesium Total Bilirubin AST ALT Alkaline Phosphatase Total Creatine Kinase CK-MB (CK-2) Troponin I B-Natriuretic Peptide Total Protein Albumin Globulin Albumin/Globulin Ratio Triglycerides Cholesterol LDL Cholesterol VLDL Cholesterol HDL Cholesterol Heart Disease Risk Ratio Free T4 TSH 3rd Generation Urine Color Urine Appearance Urine pH Ur Specific [place] Urine Protein Urine Glucose (UA) Urine Ketones Urine Blood Urine Nitrate Urine Bilirubin Urine Urobilinogen Urine Leukocytes Urine RBC Urine WBC Ur Squamous Epith Cells Hyaline Casts Urine Mucus Ur Culture Indicated? - EKG EKG results: interpreted by me (Atrial fibrillation)
[2017-02-13] MEDS ORDERED: INSULIN NPH/REGULAR 70/30 100 UNIT/ML SUBCUT SCH (17:00)
[2017-02-13] MEDS ORDERED: MONTELUKAST 10 MG TABLET PO SCH (21:00)
[2017-02-13] MEDS ORDERED: LATANOPROST 0.005% OPH SOLN 2.5 ML BOTTLE BOTH EYES SCH (21:00)
[2017-02-14] MEDS: ASPIRIN EC 81 MG TABLET PO SCH (08:23)
[2017-02-14] MEDS: COLCHICINE 0.6 MG TABLET PO SCH (08:23)
[2017-02-14] MEDS: VERAPAMIL 120 MG TABLET PO SCH (08:23)
[2017-02-14] MEDS: CARVEDILOL 12.5 MG TABLET PO SCH (08:23)
[2017-02-14] MEDS: POLYETHYLENE GLYCOL POWDER 17 GM PACK PO SCH (08:24)
[2017-02-14] MEDS: INSULIN REGULAR 100 UNIT/ML SUBCUT SCH ×2 (08:24→12:13)
[2017-02-14] MEDS: PANTOPRAZOLE 40 MG TABLET PO SCH (08:24)
[2017-02-14] MEDS: INSULIN NPH/REGULAR 70/30 100 UNIT/ML SUBCUT SCH (08:25)
[2017-02-14] MEDS: FLUTICASONE/SALMETEROL 500-50 DISKUS 14 DOSE INH SCH (08:25)
--- NOTE | 2017-02-14 08:32 | Discharge Summary ---
<Ulises Leslieedwarddiorсергей - Last Filed: 02/14/17 08:21> Hospital Course - Hospital Course Hospital Course: Ms. Rodriguez is a 76-year-old morbidly obese black female with a history of hypertension, CHF, diabetes, dyslipidemia, and gout who presents to the ED on for evaluation of progressively worsening shortness of breath. Patient denies chest pain and tightness but complained of associated with the pain you, P ENT, and bilateral leg swelling as well as pain. In the ED patient was noted to be hypertensive with a blood pressure of 201/139. Her labs revealed BUN and creatinine of 22/1.4 respectively, and WBC of 13.5. EKG revealed A. fib at a rate of 100. Chest x-ray showed mild cardiomegaly. Patient was admitted to the hospitalist service for further evaluation and treatment. Cardiology was consulted to see for afib.Patient was treated with IV hydralazine and IV Lasix, bblockers, Ca-channel blockers and Lovenox.Sliding scale insulin was started for management of diabetes. The patient had transthoracic echo on 08/26/2016 showed ejection fraction 55% with indeterminate systolic parameters . Patient's shortness of breath has resolved.Her heart rate and blood pressure improved. Her vitals are stable. Patient stable to be discharged today. She requests for portable home o2, we will get her home health and set up an outpatient sleep study. Diagnosis - Discharge Diagnosis (1) Acute dyspnea Status: Acute (2) Acute renal failure (ARF) Status: Acute (3) Atrial fibrillation Status: Chronic (4) CHF exacerbation Status: Chronic Specialty Discharge - Follow Up or Referrals Follow up with: Yancy Hernandez MD [Physician] - 03/02/17 3:40 pm Luna Garcia MD [Physician] - 03/01/17 10:00 am (sleep study clinic will send papers to address... please fill out and bring with you to appointment..) TONE LUIS NP [[facility]] - 02/28/17 10:30 am Discharge Plan - Discharge Data Disposition: Home Health Service - Discharge Medications New Carvedilol [Coreg] 25 mg PO BID #60 tablet Apixaban [Eliquis] 5 mg PO BID #60 tablet Acetaminophen Tab [Tylenol Tab] 325 mg PO Q4H PRN tablet PRN Reason: fever, headache/body aches Colchicine [Colcrys] 0.6 mg PO BID #60 tablet Continue Montelukast Tab [Singulair Tab] 10 mg PO QPM Potassium Chloride 20 meq PO QAM Insulin NPH Hum/Reg Insulin Hm [NovoLIN 70/30] 34 unit SUBCUT DAILY W/SUPPER Insulin NPH Hum/Reg Insulin Hm [NovoLIN 70/30] 64 unit SUBCUT QAM Hydralazine HCl 100 mg PO BID Latanoprost [Latanoprost 0.005 % Oph Soln] 1 drop BOTH EYES BEDTIME Fluticasone 50 Mcg Nasal [place] [Flonase Nasal [place]] 2 spray BOTH NARES DAILY PRN PRN Reason: Sinus Symptoms Verapamil HCl [Verapamil Tab] 120 mg PO QAM Aspirin [Aspirin EC] 81 mg PO QAM Fluticasone/Salmeterol 500-50 [Advair 500-50] 1 puff INH BID Polyethylene Glycol Powder [Miralax] 17 gm PO QAM Albuterol Sulfate [Albuterol Neb] 3 ml INH TID Albuterol Inhaler [Proventil Inhaler] 1 puff INH Q6H PRN #1 inhaler PRN Reason: Shortness Of Breath/Wheezing Omeprazole 20 mg PO QAM Furosemide Tab [Lasix Tab] 80 mg PO BID Discontinued Carvedilol [Coreg] 12.5 mg PO BID Quinapril HCl 40 mg PO QAM Allopurinol 300 mg PO QAM - Follow Up or Referral Follow Up: Yancy Hernandez MD [Physician] - 03/02/17 3:40 pm Luna Garcia MD [Physician] - 03/01/17 10:00 am (sleep study clinic will send papers to address... please fill out and bring with you to appointment..) TONE LUIS NP [[facility]] - 02/28/17 10:30 am - Forms/Instructions Instructions: Heart Failure (DC), Dyspnea (GEN), Hypertensive Crisis (DC) Exam - Constitutional Vitals: Period Temp Pulse Resp BP Sys/[place] Pulse Ox Last 24 Hr 96.6 F-99.3 F 92-108 20-22 139-167/54-80 96-100 Discharge Results Procedures and tests throughout hospitalization: Pending Orders 02/13/17 01:05 Urine Culture Stat 02/13/17 01:28 Blood Culture Routine Labs on day of discharge: Labs from last 24 hours 02/14/17 02/13/17 02/13/17 11:42 18:57 17:13 POC Glucose 167 H 186 H 114 H 02/13/17 16:37 POC Glucose 66 L Preliminary micro results at discharge 02/13/17 01:05 Urine Culture - Preliminary Urine,[place] No Growth at 24 hours. 02/13/17 01:28 Blood Culture - Preliminary Blood No growth at 1 day 02/13/17 01:28 Blood Culture - Preliminary Blood No growth at 1 day DS: Provider Date of admission: 02/12/17 22:20 Primary care physician: . Lorri PCP Attending physician on admission: Gisela Gandhi MD Consults: 02/13/17 00:42 Consult to Physician [CONS] Routine Comment: CHF Consulting Provider: Consult to Specialist Group: Cardiology When should Consulting Provider be notified: In am Person Notified: Ban Date Notified: 02/13/17 Time Notified: 07:49 02/14/17 08:42 Consult to Case Mgmt/Social Srvs [CONS] Routine Reason for Case Mgmt/Social Srvs: Home Health Equipment Consult Comment: portable O2 Discharging clinician: Fatoumata Leslie NP <Gisela Gandhi - Last Filed: 02/14/17 14:21> Hospital Course - Time spent with patient Time with patient DS: Greater than 30 minutes (time spent greater than 35mins) Diagnosis - Discharge Diagnosis (1) Hypertensive crisis Status: Acute (2) Acute dyspnea Status: Acute (3) Acute renal failure (ARF) Status: Acute (4) CHF exacerbation Status: Chronic (5) IDDM (insulin dependent diabetes mellitus) Status: Acute (6) Dyslipidemia Status: Acute (7) Gout Status: Chronic (8) Atrial fibrillation Status: Chronic Discharge Plan - Discharge Data Condition at Discharge: Stable Discharge Diet: heart healthy Activity: resume usual activities as tolerated - Forms/Instructions Additional Discharge Instructions: Follow with PCP in 1week. Outpatient sleep study. Exam - Constitutional General appearance: no acute distress, morbidly obese - Head Head exam: Present: normal inspection - Respiratory Respiratory exam: Present: decreased breath sounds - Cardiovascular Cardiovascular exam: Present: irregular rhythm - GI/Abdominal GI/Abdominal exam: Present: normal bowel sounds - Extremities Exam Extremities exam: Present: normal inspection
--- NOTE | 2017-02-14 08:41 | Cardiology Progress Note ---
Cardiology - PN: Subj Interval history: Cardiology note 76-year-old admitted with increasing shortness of breath and elevated blood pressure. Feeling better today. Troponin negative 3. Patient has history of diastolic dysfunction. Recent echo shows ejection fraction of 55% with normal RV function and mild TR PA pressure 40 IrRegular rhythm no murmur Decreased breath sounds but clear Abdomen benign Trace leg edema Impression Chronic hypertension with inadequate control Diastolic dysfunction and recurrent heart failure Chronic atrial fibrillation Long-standing diabetes Morbid obesity 162 kg Plan Increase carvedilol 25 mg twice daily Exam (Progress Note) - Constitutional Vitals: Period Temp Pulse Resp BP Sys/[place] Pulse Ox Last 24 Hr 97.2 F-99.3 F 84-108 19-22 139-167/69-80 98-100 Result/EKG - Labs CBC & BMP: 02/13/17 08:31 02/13/17 06:39 Labs: Laboratory Results - last 24 hr 02/13/17 02/13/17 02/13/17 08:31 11:23 16:37 WBC 13.3 H RBC 3.66 L Hgb 11.0 L Hct 33.8 L MCV 92.3 MCH 30 MCHC 32.5 RDW 15.5 Plt Count 254 MPV 11.3 Neut % (Auto) 73.7 Lymph % (Auto) 16.0 L [place] % (Auto) 8.7 Eos % (Auto) 0.8 Baso % (Auto) 0.3 Neut # (Auto) 9.8 H Lymph # (Auto) 2.1 [place] # (Auto) 1.2 H Eos # (Auto) 0.1 Baso # (Auto) 0.0 Immature Gran % 0.5 Nucleated RBC % 0.0 Immature Gran # 0.07 Nucleated RBCs # 0.00 Immature Plt Fraction 0.0 POC Glucose 183 H 66 L 02/13/17 02/13/17 17:13 18:57 WBC RBC Hgb Hct MCV MCH MCHC RDW Plt Count MPV Neut % (Auto) Lymph % (Auto) [place] % (Auto) Eos % (Auto) Baso % (Auto) Neut # (Auto) Lymph # (Auto) [place] # (Auto) Eos # (Auto) Baso # (Auto) Immature Gran % Nucleated RBC % Immature Gran # Nucleated RBCs # Immature Plt Fraction POC Glucose 114 H 186 H
[2017-02-14] MEDS ORDERED: CARVEDILOL 25 MG TABLET PO SCH (09:00)
[2017-02-14] MEDS: ENOXAPARIN 150 MG/ML SYRINGE SUBCUT SCH (09:58)
[2017-02-14 12:32] VITALS: BP 144/54
--- NOTE | 2017-02-14 14:46 | Physician Query Form ---
CLICK EDIT DOCUMENT TO SELECT QUERY ANSWER --> OK --> SIGN Jeanne Medina RN Clinical [employer] W) [phone] (f) [phone] [email or web address] PROVIDERS: Make your selection(s) from the choices in EACH section by typing an "x" and enter comments in the comment section. Please use your independent medical judgment in providing your response. This request does not imply that any particular answer is desired or expected. CLINICAL INDICATORS: (Providers should not edit this section) Based on documentation of "On home O2" "Home O2 dependent" Room air SAT 88%. Oxygen applied via nasal canula. Based on the above, could you clarify the appropriate diagnosis, if significant , that supports the above abnormalities and additional evaluation, monitoring, and/or treatment rendered: ( ) Treated for Chronic Respiratory Failure (x ) NOT treated for Chronic Respiratory Failure ( ) Other, please specify: ( ) Clinically unable to determine COMMENTS: PLEASE ALSO DOCUMENT RESPONSE IN PROGRESS NOTES AND/OR DISCHARGE SUMMARY Use of terms such as suspected, likely, or probable (associated with a specific diagnosis that is being evaluated, monitored, or treated as if it exists) are acceptable and can be restated in the discharge summary if not ruled out. [facility]
== END 2017-02-14 15:15 | disposition home health service (06) | DRG 292 ==
LOC: N.ED 19:25 → SUATTDRO 22:20 → N.EDINP 22:20 → N.5E 23:21
PROVIDERS: ADMIT Internal Medicine; ATTEND Internal Medicine

== ENCOUNTER 2017-05-07 03:11 | Observation (INO) ==
[2017-05-07] MEDS ORDERED: DEXTROSE 50% 25 GM/50 ML SYRINGE IV ONE (03:27)
[2017-05-07] MEDS ORDERED: DEXTROSE 50% 25 GM/50 ML VIAL IV STA (03:30)
[2017-05-07 04:32] LABS: Basophils # 0.1 10*3/uL (0.0-0.2); Basophils % 0.3 % (0.0-0.8); Eosinophils # 0.1 10*3/uL (0.0-0.87); Eosinophils % 0.4 % (0.00-10.9); Hematocrit 40.8 VOL% (35.7-47.0); Hemoglobin 13.7 GM/DL (12.0-16.0); Immature Granulocytes % 0.7 %; Immature Granulocytes Absolute 0.11 #; Mean Corpuscular HGB Conc 33.6 GM/DL (32-36); Mean Corpuscular Hemoglobin 30 PG (27-34); Mean Corpuscular Volume 89.5 FL (87-102); Mean Platelet Volume 11.5 FL (9.6-12.0); Monocytes # 0.9 10*3/uL (0.11-0.8); Monocytes % 5.5 % (1.7-12.7); Neutrophils # 13.3 10*3/uL (1.4-7.4); Neutrophils % 81.1 % (38.7-73.9); Platelet Count 250 T/CUMM (130-400); Red Blood Count 4.56 MC/CUMM (3.8-5.5); Red Cell Distribution Width 14.2 % (9.3-17.3); White Blood Count 16.4 T/CUMM (4-12)
[2017-05-07 04:41] LABS: Calcium 9.5 MG/DL (8.5-10.1); Osmolality,Calculated 281.1 MOS/KG (273-304); Potassium 4.6 MMOL/L (3.5-5.1)
[2017-05-07] MEDS ORDERED: GLUCAGON 1 MG VIAL IM PRN (06:09)
[2017-05-07] MEDS ORDERED: DEXTROSE 50% 25 GM/50 ML VIAL IV PRN (06:09)
[2017-05-07] MEDS: INSULIN LISPRO 100 UNIT/ML SUBCUT SCH ×4 (10:29→21:12)
[2017-05-07] MEDS ORDERED: CYCLOBENZAPRINE 10 MG TABLET PO PRN (13:58)
[2017-05-07] MEDS ORDERED: FLUTICASONE 50 MCG NASAL SPRAY 16 GM BOTTLE BOTH NARES PRN (13:58)
[2017-05-07] MEDS: CARVEDILOL 12.5 MG TABLET PO SCH (14:25)
[2017-05-07] MEDS: FLUTICASONE/SALMETEROL 500-50 DISKUS 14 DOSE INH SCH ×2 (14:25→21:13)
[2017-05-07] MEDS: RIVAROXABAN 20 MG TABLET PO SCH (16:39)
[2017-05-07 19:48] LABS: Apearance,Urine Slightly Hazy (Clear); Bilirubin,Urine Negative (Negative); Blood, Urine Moderate mg/dL (Negative); Glucose,Urine (UA) 50 mg/dL (Negative); Hyaline Casts,Urine 1 /LPF (0-3); Ketones,Urine Negative (Negative); Nitrite,Urine Negative (Negative); Protein,Urine 30 MG/DL; RBC,Urine 2 /HPF (0-4); Squamous Epithelial Cell,Urine Occasional /HPF (0-10); Urine Color Yellow (Yellow); WBC,Urine 4 /HPF (0-6)
[2017-05-07] MEDS ORDERED: MONTELUKAST 10 MG TABLET PO SCH (21:00)
[2017-05-07] MEDS ORDERED: ONDANSETRON 4 MG/2 ML VIAL IV PRN (23:12)
[2017-05-08 05:41] LABS: Basophils % 0.3 % (0.0-0.8); Eosinophils # 0.1 10*3/uL (0.0-0.87); Eosinophils % 0.8 % (0.00-10.9); Hematocrit 34.8 VOL% (35.7-47.0); Hemoglobin 11.8 GM/DL (12.0-16.0); Immature Granulocytes % 0.4 %; Immature Granulocytes Absolute 0.05 #; Lymphocytes # 2.7 10*3/uL (1.4-4.0); Mean Corpuscular HGB Conc 33.9 GM/DL (32-36); Mean Corpuscular Hemoglobin 30 PG (27-34); Mean Corpuscular Volume 88.5 FL (87-102); Mean Platelet Volume 12.3 FL (9.6-12.0); Monocytes # 1.2 10*3/uL (0.11-0.8); Monocytes % 10.3 % (1.7-12.7); Neutrophils # 7.8 10*3/uL (1.4-7.4); Neutrophils % 65.2 % (38.7-73.9); Platelet Count 258 T/CUMM (130-400); Red Blood Count 3.93 MC/CUMM (3.8-5.5); Red Cell Distribution Width 14.1 % (9.3-17.3); White Blood Count 11.9 T/CUMM (4-12)
[2017-05-08 06:12] LABS: Calcium 9.7 MG/DL (8.5-10.1); Osmolality,Calculated 286.7 MOS/KG (273-304); Potassium 4.9 MMOL/L (3.5-5.1)
[2017-05-08] MEDS ORDERED: PANTOPRAZOLE 40 MG TABLET PO SCH (09:00)
[2017-05-08] MEDS ORDERED: VERAPAMIL 120 MG TABLET PO SCH (09:00)
[2017-05-08] MEDS ORDERED: ASPIRIN EC 81 MG TABLET PO SCH (09:00)
[2017-05-08] MEDS: CARVEDILOL 12.5 MG TABLET PO SCH (10:19)
[2017-05-08] MEDS: INSULIN LISPRO 100 UNIT/ML SUBCUT SCH ×3 (10:20→18:22)
[2017-05-08] MEDS: FLUTICASONE/SALMETEROL 500-50 DISKUS 14 DOSE INH SCH (10:20)
[2017-05-08] MEDS ORDERED: ALUMINUM/MAGNES/SIMETH MAX STR 30 ML UDCUP PO ONE (12:22)
[2017-05-08 16:36] VITALS: BP 122/62
[2017-05-08] MEDS: RIVAROXABAN 20 MG TABLET PO SCH (18:22)
== END 2017-05-08 15:40 | disposition home or self-care (01) | DRG 638 ==
LOC: EDBD → EDUNIT# → N.ED 03:11 → INTOOBSV 06:27 → N.EDINP 06:27 → N.5E 06:59
PROVIDERS: ADMIT Internal Medicine; ATTEND Internal Medicine

== ENCOUNTER 2017-10-22 14:43 | Observation (INO) ==
[2017-10-22 15:47] LABS: Basophils # 0.1 10*3/uL (0.0-0.2); Basophils % 0.4 % (0.0-0.8); Eosinophils # 0.2 10*3/uL (0.0-0.87); Eosinophils % 1.1 % (0.00-10.9); Hematocrit 32.4 VOL% (35.7-47.0); Hemoglobin 10.3 GM/DL (12.0-16.0); Immature Granulocytes % 0.6 %; Immature Granulocytes Absolute 0.08 #; Lymphocytes # 2.6 10*3/uL (1.4-4.0); Lymphocytes % 20.1 % (21.3-54.2); Mean Corpuscular HGB Conc 31.8 GM/DL (32-36); Mean Corpuscular Hemoglobin 29 PG (27-34); Mean Corpuscular Volume 89.5 FL (87-102); Mean Platelet Volume 12.1 FL (9.6-12.0); Monocytes # 1.1 10*3/uL (0.11-0.8); Neutrophils # 9.2 10*3/uL (1.4-7.4); Neutrophils % 69.8 % (38.7-73.9); Platelet Count 252 T/CUMM (130-400); Red Blood Count 3.62 MC/CUMM (3.8-5.5); Red Cell Distribution Width 15.9 % (9.3-17.3); White Blood Count 13.1 T/CUMM (4-12)
[2017-10-22 16:12] LABS: Blood Urea Nitrogen 26 MG/DL (7-18); Calcium 8.7 MG/DL (8.5-10.1); Glucose 307 MG/DL (74-106); Osmolality,Calculated 282.4 MOS/KG (273-304); Sodium 133 MMOL/L (136-145); Troponin I Only < 0.015 NG/ML (0.00-0.045)
[2017-10-22 16:13] LABS: Potassium 5.5 MMOL/L (3.5-5.1)
[2017-10-22] MEDS ORDERED: SODIUM CHLORIDE 0.9% 1,000 ML IV STA (16:53)
[2017-10-22] MEDS ORDERED: SODIUM CHLORIDE 0.9% 500 ML IV STA (17:02)
[2017-10-22] MEDS ORDERED: MAGNESIUM SULFATE 1 GM/2 ML VIAL IV ONE (17:12)
[2017-10-22] MEDS ORDERED: MAGNESIUM SULF RIDER 2 GM in PREMIX 1 EACH IV STA (17:31)
[2017-10-22] MEDS ORDERED: MAGNESIUM SULF RIDER 50 ML IV ONE (17:32)
[2017-10-22] MEDS ORDERED: ACETAMINOPHEN 325 MG TABLET PO PRN (18:07)
[2017-10-22] MEDS ORDERED: GLUCAGON 1 MG VIAL IM PRN (18:07)
[2017-10-22] MEDS ORDERED: ONDANSETRON 4 MG/2 ML VIAL IV PRN (18:07)
[2017-10-22] MEDS ORDERED: DEXTROSE 50% 25 GM/50 ML VIAL IV PRN (18:07)
[2017-10-22] MEDS ORDERED: FLUTICASONE 50 MCG NASAL SPRAY 16 GM BOTTLE BOTH NARES PRN (18:33)
[2017-10-22] MEDS ORDERED: ALBUTEROL 2.5 MG/3 ML NEB RESP TX PRN (18:33)
[2017-10-22] MEDS ORDERED: LEVOFLOXACIN INJ 500 MG in PREMIX 1 EACH IV ONE (20:00)
[2017-10-22] MEDS: SODIUM CHLORIDE 0.9% 1,000 ML IV SCH (20:14)
[2017-10-22] MEDS: INSULIN NPH/REGULAR 70/30 100 UNIT/ML SUBCUT SCH (20:28)
[2017-10-22] MEDS: FLUTICASONE/SALMETEROL 500-50 DISKUS 14 DOSE INH SCH (21:45)
[2017-10-22] MEDS: CARVEDILOL 25 MG TABLET PO SCH (21:46)
[2017-10-22] MEDS: INSULIN REGULAR 100 UNIT/ML SUBCUT SCH (21:46)
[2017-10-23] MEDS: SODIUM CHLORIDE 0.9% 1,000 ML IV SCH ×3 (04:33→21:46)
[2017-10-23] MEDS: INSULIN REGULAR 100 UNIT/ML SUBCUT SCH ×4 (07:40→21:47)
[2017-10-23 08:15] LABS: Basophils # 0.1 10*3/uL (0.0-0.2); Basophils % 0.4 % (0.0-0.8); Eosinophils # 0.2 10*3/uL (0.0-0.87); Eosinophils % 1.5 % (0.00-10.9); Hemoglobin 11.3 GM/DL (12.0-16.0); Immature Granulocytes % 0.7 %; Immature Granulocytes Absolute 0.08 #; Lymphocytes # 2.6 10*3/uL (1.4-4.0); Lymphocytes % 21.7 % (21.3-54.2); Mean Corpuscular HGB Conc 31.4 GM/DL (32-36); Mean Corpuscular Hemoglobin 28 PG (27-34); Mean Corpuscular Volume 89.8 FL (87-102); Mean Platelet Volume 12.2 FL (9.6-12.0); Monocytes % 8.5 % (1.7-12.7); Neutrophils # 7.9 10*3/uL (1.4-7.4); Neutrophils % 67.2 % (38.7-73.9); Platelet Count 219 T/CUMM (130-400); Red Blood Count 4.01 MC/CUMM (3.8-5.5); Red Cell Distribution Width 15.9 % (9.3-17.3); White Blood Count 11.8 T/CUMM (4-12)
[2017-10-23 09:11] LABS: Potassium 4.9 MMOL/L (3.5-5.1)
[2017-10-23 09:13] LABS: Calcium 9.3 MG/DL (8.5-10.1)
[2017-10-23 09:14] LABS: Osmolality,Calculated 281.7 MOS/KG (273-304)
[2017-10-23] MEDS: FLUTICASONE/SALMETEROL 500-50 DISKUS 14 DOSE INH SCH ×2 (10:24→21:47)
[2017-10-23] MEDS: INSULIN NPH/REGULAR 70/30 100 UNIT/ML SUBCUT SCH ×2 (10:25→16:58)
[2017-10-23] MEDS: ASPIRIN EC 81 MG TABLET PO SCH (10:26)
[2017-10-23] MEDS: CARVEDILOL 25 MG TABLET PO SCH ×2 (10:26→21:47)
[2017-10-23] MEDS: RIVAROXABAN 20 MG TABLET PO SCH (10:26)
[2017-10-23] MEDS: ALLOPURINOL 300 MG TABLET PO SCH (10:26)
[2017-10-23] MEDS: PANTOPRAZOLE 40 MG TABLET PO SCH (10:26)
[2017-10-23] MEDS ORDERED: LEVOFLOXACIN INJ 250 MG in PREMIX 1 EACH IV SCH (20:00)
[2017-10-24] MEDS: SODIUM CHLORIDE 0.9% 1,000 ML IV SCH ×2 (01:49→11:15)
[2017-10-24 08:20] LABS: Basophils % 0.3 % (0.0-0.8); Eosinophils # 0.3 10*3/uL (0.0-0.87); Eosinophils % 2.6 % (0.00-10.9); Hemoglobin 10.2 GM/DL (12.0-16.0); Immature Granulocytes % 0.4 %; Immature Granulocytes Absolute 0.04 #; Lymphocytes # 2.9 10*3/uL (1.4-4.0); Lymphocytes % 28.3 % (21.3-54.2); Mean Corpuscular HGB Conc 32.9 GM/DL (32-36); Mean Corpuscular Hemoglobin 29 PG (27-34); Mean Corpuscular Volume 87.6 FL (87-102); Mean Platelet Volume 12.3 FL (9.6-12.0); Monocytes # 0.9 10*3/uL (0.11-0.8); Monocytes % 8.3 % (1.7-12.7); NRBC # 0.02 10*3/uL; Neutrophils # 6.2 10*3/uL (1.4-7.4); Neutrophils % 60.1 % (38.7-73.9); Platelet Count 139 T/CUMM (130-400); Red Blood Count 3.54 MC/CUMM (3.8-5.5); Red Cell Distribution Width 15.8 % (9.3-17.3); White Blood Count 10.2 T/CUMM (4-12)
[2017-10-24 08:57] LABS: Osmolality,Calculated 283.7 MOS/KG (273-304); Potassium 5.5 MMOL/L (3.5-5.1)
[2017-10-24] MEDS: PANTOPRAZOLE 40 MG TABLET PO SCH (09:52)
[2017-10-24] MEDS: RIVAROXABAN 20 MG TABLET PO SCH (09:52)
[2017-10-24] MEDS: ASPIRIN EC 81 MG TABLET PO SCH (09:52)
[2017-10-24] MEDS: ALLOPURINOL 300 MG TABLET PO SCH (09:52)
[2017-10-24] MEDS: INSULIN NPH/REGULAR 70/30 100 UNIT/ML SUBCUT SCH (09:52)
[2017-10-24] MEDS: INSULIN REGULAR 100 UNIT/ML SUBCUT SCH ×2 (09:52→11:47)
[2017-10-24] MEDS: FLUTICASONE/SALMETEROL 500-50 DISKUS 14 DOSE INH SCH (09:53)
[2017-10-24] MEDS: CARVEDILOL 25 MG TABLET PO SCH (09:54)
[2017-10-24 11:54] VITALS: BP 147/84
== END 2017-10-24 12:41 | disposition home or self-care (01) ==
LOC: N.ED 14:43 → N.EDINP 14:43 → N.5E 19:36
PROVIDERS: ADMIT Internal Medicine; ATTEND Internal Medicine

== ENCOUNTER 2017-10-26 16:44 | Observation (INO) ==
[~2017-10-26 16:44] MED LIST: metOLazone 2.5 MG TABLET PO PRN
[2017-10-26 18:22] LABS: Basophils # 0.1 10*3/uL (0.0-0.2); Basophils % 0.5 % (0.0-0.8); Eosinophils # 0.1 10*3/uL (0.0-0.87); Eosinophils % 1.3 % (0.00-10.9); Hematocrit 32.7 VOL% (35.7-47.0); Hemoglobin 10.5 GM/DL (12.0-16.0); Immature Granulocytes % 0.5 %; Immature Granulocytes Absolute 0.05 #; Lymphocytes # 2.8 10*3/uL (1.4-4.0); Mean Corpuscular HGB Conc 32.1 GM/DL (32-36); Mean Corpuscular Hemoglobin 29 PG (27-34); Mean Corpuscular Volume 88.6 FL (87-102); Monocytes # 0.9 10*3/uL (0.11-0.8); Monocytes % 8.1 % (1.7-12.7); Neutrophils # 6.8 10*3/uL (1.4-7.4); Neutrophils % 63.6 % (38.7-73.9); Platelet Count 287 T/CUMM (130-400); Red Blood Count 3.69 MC/CUMM (3.8-5.5); Red Cell Distribution Width 15.3 % (9.3-17.3); White Blood Count 10.7 T/CUMM (4-12)
[2017-10-26 18:32] LABS: INR 1.2; PT Patient Result 12.3 SECS
[2017-10-26 19:14] LABS: Bilirubin,Total 0.5 MG/DL (0.2-1.0); Calcium 9.4 MG/DL (8.5-10.1); Osmolality,Calculated 275.8 MOS/KG (273-304); Potassium 4.3 MMOL/L (3.5-5.1); Total Protein 7.5 G/DL (6.4-8.3)
[2017-10-26 19:15] LABS: Apearance,Urine HAZY (Clear); Urine Color Yellow (Yellow)
[2017-10-26 19:16] LABS: Bilirubin,Urine Negative (Negative); Blood, Urine Trace mg/dL (Negative); Glucose,Urine (UA) Negative (Negative); Ketones,Urine Negative (Negative); Nitrite,Urine Negative (Negative); Protein,Urine 30 MG/DL; RBC,Urine 0-3 /HPF (0-4); Squamous Epithelial Cell,Urine Moderate /HPF (0-10); Urine Urobilinogen 0.2 EU/DL (0.2-1.0)
[2017-10-26] MEDS ORDERED: DEXTROSE 50% 25 GM/50 ML VIAL IV PRN (20:07)
[2017-10-26] MEDS ORDERED: ONDANSETRON 4 MG/2 ML VIAL IV PRN (20:07)
[2017-10-26] MEDS ORDERED: GLUCAGON 1 MG VIAL IM PRN (20:07)
[2017-10-26] MEDS ORDERED: FLUTICASONE 50 MCG NASAL SPRAY 16 GM BOTTLE BOTH NARES PRN (20:14)
[2017-10-26] MEDS ORDERED: HydrOXYzine PAMOATE 25 MG CAPSULE PO PRN (20:14)
[2017-10-26] MEDS ORDERED: ALBUTEROL 2.5 MG/3 ML NEB RESP TX PRN (20:14)
[2017-10-26] MEDS ORDERED: POLYETHYLENE GLYCOL POWDER 17 GM PACK PO PRN (20:14)
[2017-10-26] MEDS: INSULIN NPH/REGULAR 70/30 100 UNIT/ML SUBCUT SCH (21:42)
[2017-10-26] MEDS: FLUTICASONE/SALMETEROL 500-50 DISKUS 14 DOSE INH SCH (21:43)
[2017-10-26] MEDS: MONTELUKAST 10 MG TABLET PO SCH (21:43)
[2017-10-26] MEDS: INSULIN LISPRO 100 UNIT/ML SUBCUT SCH (21:43)
[2017-10-26] MEDS: CARVEDILOL 25 MG TABLET PO SCH (21:43)
[2017-10-26] MEDS: COLCHICINE 0.6 MG TABLET PO SCH (21:43)
[2017-10-26] MEDS: MAGNESIUM CHLORIDE 64 MG TABLET PO SCH (21:43)
[2017-10-27 04:08] LABS: Basophils % 0.4 % (0.0-0.8); Eosinophils # 0.2 10*3/uL (0.0-0.87); Eosinophils % 1.5 % (0.00-10.9); Hematocrit 31.6 VOL% (35.7-47.0); Hemoglobin 10.2 GM/DL (12.0-16.0); Immature Granulocytes % 0.4 %; Immature Granulocytes Absolute 0.04 #; Lymphocytes # 2.9 10*3/uL (1.4-4.0); Mean Corpuscular HGB Conc 32.3 GM/DL (32-36); Mean Corpuscular Hemoglobin 29 PG (27-34); Mean Corpuscular Volume 88.3 FL (87-102); Mean Platelet Volume 11.4 FL (9.6-12.0); Monocytes % 10.1 % (1.7-12.7); Neutrophils # 5.9 10*3/uL (1.4-7.4); Neutrophils % 58.6 % (38.7-73.9); Platelet Count 278 T/CUMM (130-400); Red Blood Count 3.58 MC/CUMM (3.8-5.5); Red Cell Distribution Width 15.3 % (9.3-17.3)
[2017-10-27 04:36] LABS: Calcium 9.3 MG/DL (8.5-10.1); Osmolality,Calculated 281.7 MOS/KG (273-304); Potassium 4.5 MMOL/L (3.5-5.1)
[2017-10-27 05:04] LABS: Risk Ratio 2.98; VLDL CHOLESTEROL 18.6 MG/DL
[2017-10-27] MEDS ORDERED: ASPIRIN EC 81 MG TABLET PO SCH (09:00)
[2017-10-27] MEDS: LATANOPROST 0.005% OPH SOLN 2.5 ML BOTTLE BOTH EYES SCH ×2 (11:07→11:23)
[2017-10-27] MEDS: MAGNESIUM CHLORIDE 64 MG TABLET PO SCH ×2 (11:07→20:51)
[2017-10-27] MEDS: CARVEDILOL 25 MG TABLET PO SCH ×2 (11:08→20:51)
[2017-10-27] MEDS: COLCHICINE 0.6 MG TABLET PO SCH ×3 (11:08→20:51)
[2017-10-27] MEDS: ALLOPURINOL 300 MG TABLET PO SCH (11:08)
[2017-10-27] MEDS: INSULIN NPH/REGULAR 70/30 100 UNIT/ML SUBCUT SCH ×2 (11:09→16:42)
[2017-10-27] MEDS: PANTOPRAZOLE 40 MG TABLET PO SCH (11:09)
[2017-10-27] MEDS: FLUTICASONE/SALMETEROL 500-50 DISKUS 14 DOSE INH SCH ×2 (11:09→20:56)
[2017-10-27] MEDS: FUROSEMIDE 40 MG TABLET PO SCH ×2 (11:09→16:42)
[2017-10-27] MEDS: RIVAROXABAN 20 MG TABLET PO SCH (11:09)
[2017-10-27] MEDS: POTASSIUM CHLORIDE 20 MEQ TABLET PO SCH (11:09)
[2017-10-27] MEDS: INSULIN LISPRO 100 UNIT/ML SUBCUT SCH ×4 (11:10→20:27)
[2017-10-27] MEDS: MONTELUKAST 10 MG TABLET PO SCH (20:51)
[2017-10-28 06:23] LABS: Calcium 9.5 MG/DL (8.5-10.1); Osmolality,Calculated 278.8 MOS/KG (273-304); Potassium 4.6 MMOL/L (3.5-5.1)
[2017-10-28 08:07] VITALS: BP 155/91
[2017-10-28] MEDS ORDERED: CLOPIDOGREL 75 MG TABLET PO SCH (09:00)
[2017-10-28] MEDS: COLCHICINE 0.6 MG TABLET PO SCH (09:19)
[2017-10-28] MEDS: PANTOPRAZOLE 40 MG TABLET PO SCH (09:20)
[2017-10-28] MEDS: CARVEDILOL 25 MG TABLET PO SCH (09:20)
[2017-10-28] MEDS: MAGNESIUM CHLORIDE 64 MG TABLET PO SCH (09:20)
[2017-10-28] MEDS: ALLOPURINOL 300 MG TABLET PO SCH (09:20)
[2017-10-28] MEDS: POTASSIUM CHLORIDE 20 MEQ TABLET PO SCH (09:20)
[2017-10-28] MEDS: RIVAROXABAN 20 MG TABLET PO SCH (09:20)
[2017-10-28] MEDS: FUROSEMIDE 40 MG TABLET PO SCH (09:20)
[2017-10-28] MEDS: INSULIN NPH/REGULAR 70/30 100 UNIT/ML SUBCUT SCH (09:21)
[2017-10-28] MEDS: FLUTICASONE/SALMETEROL 500-50 DISKUS 14 DOSE INH SCH (09:21)
[2017-10-28] MEDS: LATANOPROST 0.005% OPH SOLN 2.5 ML BOTTLE BOTH EYES SCH (09:21)
[2017-10-28] MEDS: INSULIN LISPRO 100 UNIT/ML SUBCUT SCH ×2 (09:26→12:05)
== END 2017-10-28 12:10 | disposition home or self-care (01) ==
LOC: N.EDINP 16:44 → N.ED 16:44 → INTOOBSV 19:28 → OBSVTOIN 20:04 → N.4E 21:26

== ENCOUNTER 2018-02-08 12:44 | Inpatient (IN) ==
[2018-02-08 13:35] LABS: Basophils # 0.1 10*3/uL (0.0-0.2); Basophils % 0.3 % (0.0-0.8); Eosinophils # 0.2 10*3/uL (0.0-0.87); Hematocrit 23.7 VOL% (35.7-47.0); Hemoglobin 7.3 GM/DL (12.0-16.0); Immature Granulocytes % 0.8 %; Immature Granulocytes Absolute 0.12 #; Lymphocytes # 2.3 10*3/uL (1.4-4.0); Lymphocytes % 15.5 % (21.3-54.2); Mean Corpuscular HGB Conc 30.8 GM/DL (32-36); Mean Corpuscular Hemoglobin 28 PG (27-34); Mean Corpuscular Volume 90.1 FL (87-102); Mean Platelet Volume 10.4 FL (9.6-12.0); Monocytes # 1.3 10*3/uL (0.11-0.8); Monocytes % 8.9 % (1.7-12.7); Neutrophils # 10.8 10*3/uL (1.4-7.4); Neutrophils % 73.5 % (38.7-73.9); Platelet Count 334 T/CUMM (130-400); Red Blood Count 2.63 MC/CUMM (3.8-5.5); Red Cell Distribution Width 16.3 % (9.3-17.3); White Blood Count 14.8 T/CUMM (4-12)
[2018-02-08 13:51] LABS: INR 1.4; PT Patient Result 14.6 SECS; Partial Thromboplastin Time 37.7 SECS (0-40)
[2018-02-08 14:04] LABS: Apearance,Urine CLEAR (Clear); Bacteria,Urine Occasional /HPF (Few); Bilirubin,Urine Negative (Negative); Blood, Urine Moderate mg/dL (Negative); Glucose,Urine (UA) Negative (Negative); Ketones,Urine Negative (Negative); Nitrite,Urine Negative (Negative); Protein,Urine 100 MG/DL; RBC,Urine 49 /HPF (0-4); Squamous Epithelial Cell,Urine Occasional /HPF (0-10); Urine Color Yellow (Yellow); Urine Specific Gravity 1.014 (1.001-1.035); Urine Urobilinogen < 2.0 EU/DL (0.2-1.0); WBC,Urine 9 /HPF (0-6)
[2018-02-08 15:02] LABS: % Iron Saturation 7.6 % (18-50); Ferritin 10.1 ng/ml (8-252)
[2018-02-08 15:11] LABS: Folate 7.5 NG/ML (5.4-24.0)
[2018-02-08] MEDS ORDERED: ONDANSETRON 4 MG/2 ML VIAL IV PRN (15:27)
[2018-02-08] MEDS ORDERED: diphenhydrAMINE CAP 25 MG CAPSULE PO PRN (15:27)
[2018-02-08] MEDS ORDERED: ACETAMINOPHEN 325 MG TABLET PO PRN (15:27)
[2018-02-08] MEDS ORDERED: guaiFENesin/DM ER 600-30 MG TABLET PO PRN (15:27)
[2018-02-08] MEDS ORDERED: MORPHINE 4 MG/1 ML VIAL IV PRN (15:27)
[2018-02-08] MEDS ORDERED: metOLazone 2.5 MG TABLET PO PRN (15:34)
[2018-02-08] MEDS ORDERED: GLUCAGON 1 MG VIAL IM PRN (16:00)
[2018-02-08] MEDS ORDERED: DEXTROSE 50% 25 GM/50 ML VIAL IV PRN (16:00)
[2018-02-08 16:44] LABS: Alanine Aminotransferase 14 U/L (13-56); Albumin 2.4 G/DL (3.4-5.0); Alkaline Phosphatase 82 U/L (45-117); Aspartate Amino Transferase 12 U/L (0-37); Bilirubin,Total < 0.39 MG/DL (0.2-1.0); Blood Urea Nitrogen 41 MG/DL (7-18); Calcium 8.6 MG/DL (8.5-10.1); Glucose 184 MG/DL (74-106); Osmolality,Calculated 284.1 MOS/KG (273-304); Potassium 5.1 MMOL/L (3.5-5.1); Sodium 135 MMOL/L (136-145); Total Protein 8.1 G/DL (6.4-8.3)
[2018-02-08] MEDS: INSULIN LISPRO 100 UNIT/ML SUBCUT SCH (17:40)
[2018-02-08] MEDS: LATANOPROST 0.005% OPH SOLN 2.5 ML BOTTLE BOTH EYES SCH (17:40)
[2018-02-08] MEDS: FUROSEMIDE 80 MG TABLET PO SCH (17:40)
[2018-02-08] MEDS: VERAPAMIL 120 MG TABLET PO SCH (17:40)
[2018-02-08] MEDS ORDERED: SODIUM PHOSPHATE ENEMA 133 ML BOTTLE RECTAL PRN (19:21)
[2018-02-08] MEDS: PANTOPRAZOLE 40 MG TABLET PO SCH (21:27)
[2018-02-08] MEDS: FLUTICASONE/SALMETEROL 500-50 DISKUS 14 DOSE INH SCH (21:27)
[2018-02-08] MEDS: DOCUSATE SODIUM 100 MG CAPSULE PO SCH (21:27)
[2018-02-08] MEDS: MONTELUKAST 10 MG TABLET PO SCH (21:27)
[2018-02-08] MEDS: LACTULOSE 20 GM/30 ML UDCUP PO SCH (21:28)
[2018-02-08] MEDS: POLYETHYLENE GLYCOL POWDER 17 GM PACK PO SCH (21:30)
[2018-02-09] MEDS: INSULIN LISPRO 100 UNIT/ML SUBCUT SCH ×2 (07:50→16:43)
[2018-02-09 08:18] LABS: Basophils % 0.3 % (0.0-0.8); Eosinophils # 0.1 10*3/uL (0.0-0.87); Eosinophils % 1.2 % (0.00-10.9); Hematocrit 22.2 VOL% (35.7-47.0); Immature Granulocytes % 0.5 %; Immature Granulocytes Absolute 0.06 #; Lymphocytes % 24.8 % (21.3-54.2); Mean Corpuscular HGB Conc 31.5 GM/DL (32-36); Mean Corpuscular Hemoglobin 28 PG (27-34); Mean Corpuscular Volume 87.4 FL (87-102); Mean Platelet Volume 10.8 FL (9.6-12.0); Monocytes # 1.2 10*3/uL (0.11-0.8); Neutrophils # 7.7 10*3/uL (1.4-7.4); Neutrophils % 63.2 % (38.7-73.9); Platelet Count 328 T/CUMM (130-400); Red Blood Count 2.54 MC/CUMM (3.8-5.5); White Blood Count 12.2 T/CUMM (4-12)
[2018-02-09 08:51] LABS: Albumin 2.3 G/DL (3.4-5.0); Bilirubin,Total 0.5 MG/DL (0.2-1.0); Osmolality,Calculated 280.8 MOS/KG (273-304); Potassium 4.5 MMOL/L (3.5-5.1); Risk Ratio 2.05; Thyroid Stimulating Hormone 6.03 uIU/ml (0.358-3.74); Total Protein 7.7 G/DL (6.4-8.3); VLDL CHOLESTEROL 16.8 MG/DL
[2018-02-09] MEDS ORDERED: SODIUM CHLORIDE 0.9% 1,000 ML IV PRN (09:06)
[2018-02-09] MEDS: LACTULOSE 20 GM/30 ML UDCUP PO SCH ×2 (09:46→21:23)
[2018-02-09] MEDS: POTASSIUM CHLORIDE 20 MEQ TABLET PO SCH (09:46)
[2018-02-09] MEDS: PANTOPRAZOLE 40 MG TABLET PO SCH ×2 (09:46→21:23)
[2018-02-09] MEDS: ALLOPURINOL 300 MG TABLET PO SCH (09:46)
[2018-02-09] MEDS: POLYETHYLENE GLYCOL POWDER 17 GM PACK PO SCH ×2 (09:47→21:23)
[2018-02-09] MEDS: DOCUSATE SODIUM 100 MG CAPSULE PO SCH ×2 (09:47→21:23)
[2018-02-09] MEDS: FUROSEMIDE 80 MG TABLET PO SCH ×2 (09:47→16:52)
[2018-02-09] MEDS: FLUTICASONE/SALMETEROL 500-50 DISKUS 14 DOSE INH SCH ×2 (09:47→21:24)
[2018-02-09] MEDS: VERAPAMIL 120 MG TABLET PO SCH (09:47)
[2018-02-09] MEDS: LATANOPROST 0.005% OPH SOLN 2.5 ML BOTTLE BOTH EYES SCH (09:48)
[2018-02-09] MEDS ORDERED: FUROSEMIDE 40 MG/4 ML VIAL IV ONE (16:39)
[2018-02-09] MEDS ORDERED: FUROSEMIDE 40 MG/4 ML VIAL ONE (16:49)
[2018-02-09] MEDS: MONTELUKAST 10 MG TABLET PO SCH (21:23)
[2018-02-10] MEDS ORDERED: POLYETHYLENE GLYCOL 3350/ELECTROLYTES 4,000 ML BOTTLE PO ONE (01:50)
[2018-02-10] MEDS ORDERED: MAGNESIUM CITRATE 300 ML BOTTLE PO ONE (06:00)
[2018-02-10 06:25] LABS: Basophils # 0.1 10*3/uL (0.0-0.2); Basophils % 0.4 % (0.0-0.8); Eosinophils # 0.1 10*3/uL (0.0-0.87); Eosinophils % 0.5 % (0.00-10.9); Hematocrit 32.3 VOL% (35.7-47.0); Immature Granulocytes % 1.1 %; Immature Granulocytes Absolute 0.17 #; Lymphocytes # 2.4 10*3/uL (1.4-4.0); Lymphocytes % 15.3 % (21.3-54.2); Mean Corpuscular Hemoglobin 29 PG (27-34); Mean Platelet Volume 10.8 FL (9.6-12.0); Monocytes # 1.8 10*3/uL (0.11-0.8); NRBC # 0.02 10*3/uL; Neutrophils # 11.4 10*3/uL (1.4-7.4); Neutrophils % 71.7 % (38.7-73.9); Platelet Count 298 T/CUMM (130-400); Red Blood Count 3.51 MC/CUMM (3.8-5.5); White Blood Count 15.9 T/CUMM (4-12)
[2018-02-10 07:06] LABS: Calcium 9.1 MG/DL (8.5-10.1); Free T4 (Free Thyroxine) 1.02 NG/DL (0.76-1.46); Potassium 4.8 MMOL/L (3.5-5.1)
[2018-02-10 07:15] LABS: Folate 11.1 NG/ML (5.4-24.0); Vitamin B12 316 PG/ML (211-911)
[2018-02-10 07:35] LABS: % Iron Saturation 17.5 % (18-50); Ferritin 14.3 ng/ml (8-252); Sedimentation Rate-Westergren 77 MM/HR (0-30)
[2018-02-10] MEDS: INSULIN LISPRO 100 UNIT/ML SUBCUT SCH ×2 (08:14→17:07)
[2018-02-10] MEDS: VERAPAMIL 120 MG TABLET PO SCH ×2 (08:15→15:24)
[2018-02-10] MEDS: FUROSEMIDE 80 MG TABLET PO SCH ×2 (08:15→15:24)
[2018-02-10] MEDS: LACTULOSE 20 GM/30 ML UDCUP PO SCH ×2 (08:15→20:45)
[2018-02-10] MEDS: FLUTICASONE/SALMETEROL 500-50 DISKUS 14 DOSE INH SCH ×2 (08:15→20:44)
[2018-02-10] MEDS: POLYETHYLENE GLYCOL POWDER 17 GM PACK PO SCH ×2 (08:16→20:45)
[2018-02-10] MEDS: CHOLECALCIFEROL 1,000 UNIT TABLET PO SCH ×2 (08:16→15:24)
[2018-02-10] MEDS: POTASSIUM CHLORIDE 20 MEQ TABLET PO SCH ×2 (08:16→15:24)
[2018-02-10] MEDS: LATANOPROST 0.005% OPH SOLN 2.5 ML BOTTLE BOTH EYES SCH (08:16)
[2018-02-10] MEDS: ALLOPURINOL 300 MG TABLET PO SCH ×2 (08:16→15:24)
[2018-02-10] MEDS: DOCUSATE SODIUM 100 MG CAPSULE PO SCH ×2 (08:16→20:44)
[2018-02-10] MEDS: PANTOPRAZOLE 40 MG TABLET PO SCH ×2 (08:16→20:45)
[2018-02-10] MEDS ORDERED: LIDOCAINE 1% 5 ML VIAL ONE (09:00)
[2018-02-10] MEDS ORDERED: PROPOFOL 200 MG/20 ML VIAL IV ONE (09:00)
[2018-02-10 09:23] LABS: Hemoglobin A1 (Alkaline) 97.5 % (96.5-98.5); Hemoglobin A2 (Alkaline) 2.5 % (1.5-3.5)
[2018-02-10] MEDS: CARVEDILOL 3.125 MG TABLET PO SCH (17:07)
[2018-02-10] MEDS: MONTELUKAST 10 MG TABLET PO SCH (20:44)
[2018-02-10] MEDS: FLUTICASONE 50 MCG NASAL SPRAY 16 GM BOTTLE BOTH NARES PRN (20:45)
[2018-02-11 06:48] LABS: Basophils # 0.1 10*3/uL (0.0-0.2); Basophils % 0.3 % (0.0-0.8); Eosinophils # 0.1 10*3/uL (0.0-0.87); Eosinophils % 0.4 % (0.00-10.9); Hematocrit 29.7 VOL% (35.7-47.0); Hemoglobin 9.2 GM/DL (12.0-16.0); Immature Granulocytes % 0.7 %; Immature Granulocytes Absolute 0.11 #; Lymphocytes # 2.1 10*3/uL (1.4-4.0); Lymphocytes % 13.4 % (21.3-54.2); Mean Corpuscular Hemoglobin 28 PG (27-34); Mean Corpuscular Volume 90.3 FL (87-102); Mean Platelet Volume 10.3 FL (9.6-12.0); Monocytes # 1.8 10*3/uL (0.11-0.8); Monocytes % 11.3 % (1.7-12.7); NRBC # 0.02 10*3/uL; Neutrophils # 11.5 10*3/uL (1.4-7.4); Neutrophils % 73.9 % (38.7-73.9); Platelet Count 306 T/CUMM (130-400); Red Blood Count 3.29 MC/CUMM (3.8-5.5); Red Cell Distribution Width 15.9 % (9.3-17.3); White Blood Count 15.6 T/CUMM (4-12)
[2018-02-11 07:08] LABS: Calcium 9.4 MG/DL (8.5-10.1); Potassium 4.3 MMOL/L (3.5-5.1)
[2018-02-11] MEDS: POTASSIUM CHLORIDE 20 MEQ TABLET PO SCH (09:11)
[2018-02-11] MEDS: CARVEDILOL 3.125 MG TABLET PO SCH ×2 (09:11→17:26)
[2018-02-11] MEDS: CHOLECALCIFEROL 1,000 UNIT TABLET PO SCH (09:11)
[2018-02-11] MEDS: IRON (CARBONYL)/VIT C/B12/FA TABLET PO SCH (09:11)
[2018-02-11] MEDS: VERAPAMIL 120 MG TABLET PO SCH (09:11)
[2018-02-11] MEDS: PANTOPRAZOLE 40 MG TABLET PO SCH ×2 (09:11→20:59)
[2018-02-11] MEDS: FUROSEMIDE 80 MG TABLET PO SCH ×2 (09:12→17:26)
[2018-02-11] MEDS: FLUTICASONE/SALMETEROL 500-50 DISKUS 14 DOSE INH SCH ×2 (09:12→20:59)
[2018-02-11] MEDS: LATANOPROST 0.005% OPH SOLN 2.5 ML BOTTLE BOTH EYES SCH (09:12)
[2018-02-11] MEDS: ALLOPURINOL 300 MG TABLET PO SCH (09:12)
[2018-02-11] MEDS: DOCUSATE SODIUM 100 MG CAPSULE PO SCH ×2 (09:13→20:59)
[2018-02-11] MEDS: LACTULOSE 20 GM/30 ML UDCUP PO SCH ×2 (09:13→20:59)
[2018-02-11] MEDS: POLYETHYLENE GLYCOL POWDER 17 GM PACK PO SCH ×2 (09:13→21:00)
[2018-02-11] MEDS: ALBUTEROL 2.5 MG/3 ML NEB RESP TX PRN ×2 (09:45→23:24)
[2018-02-11] MEDS: INSULIN LISPRO 100 UNIT/ML SUBCUT SCH ×2 (11:18→17:27)
[2018-02-11] MEDS: CYANOCOBALAMIN 1000 MCG/1 ML VIAL IM SCH (19:55)
[2018-02-11] MEDS: INSULIN GLARGINE 100 UNIT/ML SUBCUT SCH (20:59)
[2018-02-11] MEDS: MONTELUKAST 10 MG TABLET PO SCH (20:59)
[2018-02-11] MEDS: FLUTICASONE 50 MCG NASAL SPRAY 16 GM BOTTLE BOTH NARES PRN (20:59)
[2018-02-12 06:36] LABS: Basophils % 0.2 % (0.0-0.8); Eosinophils # 0.1 10*3/uL (0.0-0.87); Eosinophils % 0.6 % (0.00-10.9); Hemoglobin 8.9 GM/DL (12.0-16.0); Immature Granulocytes % 0.7 %; Immature Granulocytes Absolute 0.09 #; Lymphocytes # 2.1 10*3/uL (1.4-4.0); Lymphocytes % 15.4 % (21.3-54.2); Mean Corpuscular HGB Conc 31.8 GM/DL (32-36); Mean Corpuscular Hemoglobin 29 PG (27-34); Mean Corpuscular Volume 90.6 FL (87-102); Mean Platelet Volume 10.4 FL (9.6-12.0); Monocytes # 1.5 10*3/uL (0.11-0.8); Neutrophils # 9.7 10*3/uL (1.4-7.4); Neutrophils % 72.1 % (38.7-73.9); Platelet Count 294 T/CUMM (130-400); Red Blood Count 3.09 MC/CUMM (3.8-5.5); Red Cell Distribution Width 15.9 % (9.3-17.3); White Blood Count 13.4 T/CUMM (4-12)
[2018-02-12 06:53] LABS: Calcium 8.9 MG/DL (8.5-10.1); Osmolality,Calculated 289.8 MOS/KG (273-304); Potassium 4.2 MMOL/L (3.5-5.1)
[2018-02-12] MEDS: CARVEDILOL 3.125 MG TABLET PO SCH ×2 (09:25→16:36)
[2018-02-12] MEDS: FUROSEMIDE 80 MG TABLET PO SCH ×2 (09:26→16:36)
[2018-02-12] MEDS: VERAPAMIL 120 MG TABLET PO SCH (09:26)
[2018-02-12] MEDS: INSULIN LISPRO 100 UNIT/ML SUBCUT SCH ×2 (09:26→16:36)
[2018-02-12] MEDS: LACTULOSE 20 GM/30 ML UDCUP PO SCH ×2 (09:26→20:40)
[2018-02-12] MEDS: DOCUSATE SODIUM 100 MG CAPSULE PO SCH ×2 (09:27→20:40)
[2018-02-12] MEDS: IRON (CARBONYL)/VIT C/B12/FA TABLET PO SCH (09:27)
[2018-02-12] MEDS: INSULIN GLARGINE 100 UNIT/ML SUBCUT SCH ×2 (09:27→21:03)
[2018-02-12] MEDS: POLYETHYLENE GLYCOL POWDER 17 GM PACK PO SCH ×2 (09:27→20:41)
[2018-02-12] MEDS: PANTOPRAZOLE 40 MG TABLET PO SCH ×2 (09:27→20:40)
[2018-02-12] MEDS: CYANOCOBALAMIN 500 MCG TABLET PO SCH (09:27)
[2018-02-12] MEDS: CYANOCOBALAMIN 1000 MCG/1 ML VIAL IM SCH (09:27)
[2018-02-12] MEDS: CHOLECALCIFEROL 1,000 UNIT TABLET PO SCH (09:28)
[2018-02-12] MEDS: ALLOPURINOL 300 MG TABLET PO SCH (09:28)
[2018-02-12] MEDS: POTASSIUM CHLORIDE 20 MEQ TABLET PO SCH (09:43)
[2018-02-12] MEDS: FLUTICASONE/SALMETEROL 500-50 DISKUS 14 DOSE INH SCH ×2 (09:43→20:40)
[2018-02-12] MEDS: LATANOPROST 0.005% OPH SOLN 2.5 ML BOTTLE BOTH EYES SCH (13:22)
[2018-02-12] MEDS: MONTELUKAST 10 MG TABLET PO SCH (20:40)
[2018-02-13 06:00] LABS: Basophils # 0.1 10*3/uL (0.0-0.2); Basophils % 0.4 % (0.0-0.8); Eosinophils # 0.2 10*3/uL (0.0-0.87); Eosinophils % 1.4 % (0.00-10.9); Hematocrit 31.8 VOL% (35.7-47.0); Hemoglobin 9.7 GM/DL (12.0-16.0); Immature Granulocytes % 0.6 %; Immature Granulocytes Absolute 0.08 #; Lymphocytes % 21.9 % (21.3-54.2); Mean Corpuscular HGB Conc 30.5 GM/DL (32-36); Mean Corpuscular Hemoglobin 28 PG (27-34); Mean Corpuscular Volume 91.1 FL (87-102); Mean Platelet Volume 12.3 FL (9.6-12.0); Monocytes # 1.6 10*3/uL (0.11-0.8); Monocytes % 11.9 % (1.7-12.7); Neutrophils # 8.7 10*3/uL (1.4-7.4); Neutrophils % 63.8 % (38.7-73.9); Red Blood Count 3.49 MC/CUMM (3.8-5.5); Red Cell Distribution Width 16.3 % (9.3-17.3); White Blood Count 13.6 T/CUMM (4-12)
[2018-02-13 06:02] LABS: Platelet Count 169 T/CUMM (130-400)
[2018-02-13 06:20] LABS: Calcium 9.1 MG/DL (8.5-10.1); Potassium 4.4 MMOL/L (3.5-5.1)
[2018-02-13 06:23] LABS: Hypochromasia 1+; Ovalocytes Slight; Platelet Estimate Adequate
[2018-02-13] MEDS: POTASSIUM CHLORIDE 20 MEQ TABLET PO SCH (11:52)
[2018-02-13] MEDS: VERAPAMIL 120 MG TABLET PO SCH (11:52)
[2018-02-13] MEDS: DOCUSATE SODIUM 100 MG CAPSULE PO SCH ×2 (11:52→22:27)
[2018-02-13] MEDS: FUROSEMIDE 80 MG TABLET PO SCH ×2 (11:52→18:44)
[2018-02-13] MEDS: FLUTICASONE/SALMETEROL 500-50 DISKUS 14 DOSE INH SCH ×2 (11:52→23:37)
[2018-02-13] MEDS: LACTULOSE 20 GM/30 ML UDCUP PO SCH ×2 (11:52→22:27)
[2018-02-13] MEDS: IRON (CARBONYL)/VIT C/B12/FA TABLET PO SCH (11:52)
[2018-02-13] MEDS: LATANOPROST 0.005% OPH SOLN 2.5 ML BOTTLE BOTH EYES SCH (11:53)
[2018-02-13] MEDS: ALLOPURINOL 300 MG TABLET PO SCH (11:53)
[2018-02-13] MEDS: PANTOPRAZOLE 40 MG TABLET PO SCH ×2 (11:53→22:27)
[2018-02-13] MEDS: CYANOCOBALAMIN 500 MCG TABLET PO SCH (11:53)
[2018-02-13] MEDS: POLYETHYLENE GLYCOL POWDER 17 GM PACK PO SCH ×2 (11:53→22:27)
[2018-02-13] MEDS: CHOLECALCIFEROL 1,000 UNIT TABLET PO SCH (11:53)
[2018-02-13] MEDS: CARVEDILOL 3.125 MG TABLET PO SCH (12:29)
[2018-02-13] MEDS: INSULIN LISPRO 100 UNIT/ML SUBCUT SCH ×3 (12:29→18:44)
[2018-02-13] MEDS ORDERED: cefOXitin 2,000 MG in SYRINGE 1 EACH IV ONE (12:30)
[2018-02-13] MEDS: INSULIN GLARGINE 100 UNIT/ML SUBCUT SCH (12:30)
[2018-02-13] MEDS ORDERED: ONDANSETRON 4 MG/2 ML VIAL IV PRN (12:44)
[2018-02-13] MEDS ORDERED: BUPIVACAINE 0.25% /EPI 10 ML VIAL ONE ×2 (12:44→13:44)
[2018-02-13] MEDS ORDERED: HYDROmorphone 2 MG/1 ML VIAL IV PRN ×2 (12:44→15:51)
[2018-02-13] MEDS ORDERED: LIDOCAINE 1%/EPI INJ 20 ML VIAL ONE (12:44)
[2018-02-13] MEDS ORDERED: TISSUE ADHESIVE 1 EACH APPLICATOR TOP ONE (12:44)
[2018-02-13] MEDS ORDERED: FAMOTIDINE 20 MG/2 ML VIAL IV ONE ×2 (12:45→13:17)
[2018-02-13] MEDS ORDERED: LACTATED RINGERS 1,000 ML IV SCH (13:00)
[2018-02-13] MEDS ORDERED: DEXTROSE 5% LACTATED RINGERS 1,000 ML IV SCH (16:00)
[2018-02-13] MEDS ORDERED: MIDAZOLAM 2 MG/2 ML VIAL ONE (16:37)
[2018-02-13] MEDS ORDERED: PROPOFOL 200 MG/20 ML VIAL IV ONE (16:37)
[2018-02-13] MEDS ORDERED: SEVOFLURANE 1 UNIT/15 MINUTE INH ONE (16:37)
[2018-02-13] MEDS ORDERED: NALOXONE 0.4 MG/ML VIAL ONE (16:38)
[2018-02-13] MEDS ORDERED: fentaNYL 100 MCG/2 ML VIAL ONE (16:38)
[2018-02-13] MEDS ORDERED: ONDANSETRON 4 MG/2 ML VIAL ONE (16:38)
[2018-02-13] MEDS ORDERED: DEXAMETHASONE 10 MG/1 ML VIAL ONE (16:38)
[2018-02-13] MEDS ORDERED: FLUMAZENIL 0.5 MG/5 ML VIAL IV ONE (16:38)
[2018-02-13] MEDS ORDERED: KETOROLAC 30 MG/1 ML VIAL ONE (16:38)
[2018-02-13] MEDS ORDERED: PHENYLEPHRINE 10 MG/1 ML VIAL IV ONE (16:38)
[2018-02-13] MEDS ORDERED: SODIUM CHLORIDE 0.9% 250 ML IV ONE (16:39)
[2018-02-13] MEDS ORDERED: GLYCOPYRROLATE 0.4 MG/2 ML VIAL ONE (16:39)
[2018-02-13] MEDS ORDERED: ROCURONIUM 100 MG/10 ML VIAL IV ONE (16:39)
[2018-02-13] MEDS ORDERED: PHENYLEPHRINE 1 MG/10 ML SYRINGE IV ONE (16:39)
[2018-02-13] MEDS ORDERED: NEOSTIGMINE 10 MG/10 ML VIAL ONE (16:39)
[2018-02-13] MEDS ORDERED: ACETAMINOPHEN 1,000 MG/100 ML VIAL IV ONE (16:39)
[2018-02-13 16:51] LABS: Hematocrit 32.3 VOL% (35.7-47.0); Hemoglobin 10.3 GM/DL (12.0-16.0)
[2018-02-13 17:05] LABS: Apearance,Urine CLEAR (Clear); Bacteria,Urine Occasional /HPF (Few); Bilirubin,Urine Negative (Negative); Blood, Urine Large mg/dL (Negative); Glucose,Urine (UA) Negative (Negative); Hyaline Casts,Urine 1 /LPF (0-3); Ketones,Urine Negative (Negative); Nitrite,Urine Negative (Negative); Protein,Urine 100 MG/DL; RBC,Urine 43 /HPF (0-4); Squamous Epithelial Cell,Urine Occasional /HPF (0-10); Urine Color Yellow (Yellow); Urine Specific Gravity 1.008 (1.001-1.035); Urine Urobilinogen < 2.0 EU/DL (0.2-1.0); WBC,Urine 35 /HPF (0-6)
[2018-02-13] MEDS: INSULIN NPH/REGULAR 70/30 100 UNIT/ML SUBCUT SCH (18:19)
[2018-02-13] MEDS: CARVEDILOL 6.25 MG TABLET PO SCH (18:44)
[2018-02-13] MEDS: cefOXitin 2,000 MG in SYRINGE 1 EACH IV SCH (20:24)
[2018-02-13] MEDS: MONTELUKAST 10 MG TABLET PO SCH (22:27)
[2018-02-14] MEDS: INSULIN LISPRO 100 UNIT/ML SUBCUT SCH ×4 (00:24→18:50)
[2018-02-14 00:38] LABS: Hematocrit 33.7 VOL% (35.7-47.0); Hemoglobin 10.9 GM/DL (12.0-16.0)
[2018-02-14] MEDS: cefOXitin 2,000 MG in SYRINGE 1 EACH IV SCH ×2 (02:09→11:43)
[2018-02-14 04:18] LABS: Basophils % 0.2 % (0.0-0.8); Hemoglobin 10.5 GM/DL (12.0-16.0); Immature Granulocytes Absolute 0.26 #; Lymphocytes % 3.7 % (21.3-54.2); Mean Corpuscular HGB Conc 30.9 GM/DL (32-36); Mean Corpuscular Hemoglobin 28 PG (27-34); Mean Corpuscular Volume 89.9 FL (87-102); Mean Platelet Volume 10.8 FL (9.6-12.0); Monocytes # 0.9 10*3/uL (0.11-0.8); Monocytes % 3.5 % (1.7-12.7); Neutrophils # 24.1 10*3/uL (1.4-7.4); Neutrophils % 91.6 % (38.7-73.9); Platelet Count 299 T/CUMM (130-400); Red Blood Count 3.78 MC/CUMM (3.8-5.5); Red Cell Distribution Width 16.1 % (9.3-17.3); White Blood Count 26.3 T/CUMM (4-12)
[2018-02-14 04:45] LABS: Calcium 9.1 MG/DL (8.5-10.1); Potassium 4.2 MMOL/L (3.5-5.1)
[2018-02-14 05:09] LABS: Band Neutrophils 2 % (0-10); Hypochromasia 1+; Lymphocytes 2 % (20-55); Platelet Estimate Adequate; Segmented Neutrophils 93 % (50-85); Total Cells Counted 100
[2018-02-14 08:09] LABS: Calcium 8.9 MG/DL (8.5-10.1); Osmolality,Calculated 287.2 MOS/KG (273-304); Potassium 4.5 MMOL/L (3.5-5.1)
[2018-02-14] MEDS: LACTULOSE 20 GM/30 ML UDCUP PO SCH ×2 (08:28→20:07)
[2018-02-14] MEDS: CHOLECALCIFEROL 1,000 UNIT TABLET PO SCH (08:29)
[2018-02-14] MEDS: CYANOCOBALAMIN 500 MCG TABLET PO SCH (08:29)
[2018-02-14] MEDS: POTASSIUM CHLORIDE 20 MEQ TABLET PO SCH (08:29)
[2018-02-14] MEDS: VERAPAMIL 120 MG TABLET PO SCH (08:30)
[2018-02-14] MEDS: INSULIN NPH/REGULAR 70/30 100 UNIT/ML SUBCUT SCH ×2 (08:30→18:50)
[2018-02-14] MEDS: FUROSEMIDE 80 MG TABLET PO SCH ×2 (08:30→18:25)
[2018-02-14] MEDS: CARVEDILOL 6.25 MG TABLET PO SCH (08:30)
[2018-02-14] MEDS: ALLOPURINOL 300 MG TABLET PO SCH (08:30)
[2018-02-14] MEDS: DOCUSATE SODIUM 100 MG CAPSULE PO SCH ×2 (08:30→20:07)
[2018-02-14] MEDS ORDERED: SODIUM CHLORIDE 0.9% 500 ML IV ONE (08:33)
[2018-02-14] MEDS: POLYETHYLENE GLYCOL POWDER 17 GM PACK PO SCH ×2 (08:36→20:07)
[2018-02-14] MEDS: FLUTICASONE/SALMETEROL 500-50 DISKUS 14 DOSE INH SCH ×2 (08:36→20:11)
[2018-02-14] MEDS: PANTOPRAZOLE 40 MG TABLET PO SCH ×2 (08:36→20:07)
[2018-02-14 09:12] LABS: Hematocrit 32.1 VOL% (35.7-47.0); Hemoglobin 10.2 GM/DL (12.0-16.0)
[2018-02-14] MEDS: SODIUM CHLORIDE 0.9% 1,000 ML IV SCH ×2 (09:45→23:06)
[2018-02-14] MEDS ORDERED: cefOXitin 2,000 MG in SYRINGE 1 EACH IV SCH (10:00)
[2018-02-14] MEDS: LATANOPROST 0.005% OPH SOLN 2.5 ML BOTTLE BOTH EYES SCH (11:43)
[2018-02-14] MEDS: IRON (CARBONYL)/VIT C/B12/FA TABLET PO SCH (11:43)
[2018-02-14] MEDS ORDERED: CARVEDILOL 6.25 MG TABLET PO ONE (13:15)
[2018-02-14] MEDS: ASPIRIN EC 81 MG TABLET PO SCH (14:23)
[2018-02-14] MEDS: MONTELUKAST 10 MG TABLET PO SCH (20:07)
[2018-02-14] MEDS: CARVEDILOL 12.5 MG TABLET PO SCH (20:07)
[2018-02-15] MEDS: INSULIN LISPRO 100 UNIT/ML SUBCUT SCH ×4 (02:31→17:48)
[2018-02-15 04:19] LABS: Basophils % 0.2 % (0.0-0.8); Eosinophils % 0.2 % (0.00-10.9); Hematocrit 30.2 VOL% (35.7-47.0); Hemoglobin 9.5 GM/DL (12.0-16.0); Immature Granulocytes % 0.8 %; Immature Granulocytes Absolute 0.15 #; Lymphocytes # 1.5 10*3/uL (1.4-4.0); Lymphocytes % 7.9 % (21.3-54.2); Mean Corpuscular HGB Conc 31.5 GM/DL (32-36); Mean Corpuscular Hemoglobin 28 PG (27-34); Mean Corpuscular Volume 88.8 FL (87-102); Mean Platelet Volume 12.1 FL (9.6-12.0); Monocytes # 1.2 10*3/uL (0.11-0.8); Monocytes % 6.3 % (1.7-12.7); Neutrophils # 16.6 10*3/uL (1.4-7.4); Neutrophils % 84.6 % (38.7-73.9); Platelet Count 151 T/CUMM (130-400); White Blood Count 19.6 T/CUMM (4-12)
[2018-02-15 04:39] LABS: Calcium 9.2 MG/DL (8.5-10.1); Osmolality,Calculated 285.1 MOS/KG (273-304); Potassium 4.2 MMOL/L (3.5-5.1)
[2018-02-15 05:32] LABS: Hypochromasia 1+
[2018-02-15 05:33] LABS: Platelet Estimate Normal
[2018-02-15] MEDS: POTASSIUM CHLORIDE 20 MEQ TABLET PO SCH (09:50)
[2018-02-15] MEDS: CARVEDILOL 12.5 MG TABLET PO SCH ×2 (09:50→21:45)
[2018-02-15] MEDS: PANTOPRAZOLE 40 MG TABLET PO SCH ×2 (09:50→21:43)
[2018-02-15] MEDS: FUROSEMIDE 80 MG TABLET PO SCH ×2 (09:51→17:26)
[2018-02-15] MEDS: CHOLECALCIFEROL 1,000 UNIT TABLET PO SCH (09:52)
[2018-02-15] MEDS: ASPIRIN EC 81 MG TABLET PO SCH (09:53)
[2018-02-15] MEDS: ALLOPURINOL 300 MG TABLET PO SCH (09:53)
[2018-02-15] MEDS: INSULIN NPH/REGULAR 70/30 100 UNIT/ML SUBCUT SCH ×2 (09:54→17:48)
[2018-02-15] MEDS: DOCUSATE SODIUM 100 MG CAPSULE PO SCH ×2 (09:54→21:43)
[2018-02-15] MEDS: VERAPAMIL 120 MG TABLET PO SCH (09:55)
[2018-02-15] MEDS: IRON (CARBONYL)/VIT C/B12/FA TABLET PO SCH (09:56)
[2018-02-15] MEDS: LACTULOSE 20 GM/30 ML UDCUP PO SCH ×2 (10:23→21:43)
[2018-02-15] MEDS: POLYETHYLENE GLYCOL POWDER 17 GM PACK PO SCH ×2 (10:24→21:45)
[2018-02-15] MEDS: FLUTICASONE/SALMETEROL 500-50 DISKUS 14 DOSE INH SCH ×2 (10:25→21:42)
[2018-02-15] MEDS: CYANOCOBALAMIN 500 MCG TABLET PO SCH (10:25)
[2018-02-15] MEDS: SODIUM CHLORIDE 0.9% 1,000 ML IV SCH (12:59)
[2018-02-15] MEDS: LATANOPROST 0.005% OPH SOLN 2.5 ML BOTTLE BOTH EYES SCH (14:13)
[2018-02-15] MEDS: MONTELUKAST 10 MG TABLET PO SCH (21:43)
[2018-02-16] MEDS: INSULIN LISPRO 100 UNIT/ML SUBCUT SCH ×4 (00:58→17:35)
[2018-02-16] MEDS: SODIUM CHLORIDE 0.9% 1,000 ML IV SCH ×2 (00:59→17:35)
[2018-02-16 04:12] LABS: Basophils % 0.2 % (0.0-0.8); Eosinophils # 0.2 10*3/uL (0.0-0.87); Eosinophils % 1.1 % (0.00-10.9); Hematocrit 30.1 VOL% (35.7-47.0); Hemoglobin 9.3 GM/DL (12.0-16.0); Immature Granulocytes % 0.6 %; Lymphocytes # 1.8 10*3/uL (1.4-4.0); Lymphocytes % 11.9 % (21.3-54.2); Mean Corpuscular HGB Conc 30.9 GM/DL (32-36); Mean Corpuscular Hemoglobin 28 PG (27-34); Mean Corpuscular Volume 89.9 FL (87-102); Mean Platelet Volume 11.7 FL (9.6-12.0); Monocytes # 1.3 10*3/uL (0.11-0.8); Monocytes % 8.1 % (1.7-12.7); Neutrophils # 12.1 10*3/uL (1.4-7.4); Neutrophils % 78.1 % (38.7-73.9); Platelet Count 237 T/CUMM (130-400); Red Blood Count 3.35 MC/CUMM (3.8-5.5); Red Cell Distribution Width 16.1 % (9.3-17.3); White Blood Count 15.5 T/CUMM (4-12)
[2018-02-16 05:01] LABS: Calcium 9.1 MG/DL (8.5-10.1); Osmolality,Calculated 290.7 MOS/KG (273-304); Potassium 4.3 MMOL/L (3.5-5.1)
[2018-02-16] MEDS: FLUTICASONE/SALMETEROL 500-50 DISKUS 14 DOSE INH SCH ×2 (08:36→21:39)
[2018-02-16] MEDS: ASPIRIN EC 81 MG TABLET PO SCH (08:37)
[2018-02-16] MEDS: CYANOCOBALAMIN 500 MCG TABLET PO SCH (08:37)
[2018-02-16] MEDS: ALLOPURINOL 300 MG TABLET PO SCH (08:37)
[2018-02-16] MEDS: FUROSEMIDE 80 MG TABLET PO SCH ×2 (08:37→15:25)
[2018-02-16] MEDS: DOCUSATE SODIUM 100 MG CAPSULE PO SCH ×2 (08:38→21:40)
[2018-02-16] MEDS: VERAPAMIL 120 MG TABLET PO SCH (08:38)
[2018-02-16] MEDS: CARVEDILOL 12.5 MG TABLET PO SCH ×2 (08:38→21:39)
[2018-02-16] MEDS: PANTOPRAZOLE 40 MG TABLET PO SCH ×2 (08:38→21:39)
[2018-02-16] MEDS: IRON (CARBONYL)/VIT C/B12/FA TABLET PO SCH (08:38)
[2018-02-16] MEDS: CHOLECALCIFEROL 1,000 UNIT TABLET PO SCH (08:38)
[2018-02-16] MEDS: POLYETHYLENE GLYCOL POWDER 17 GM PACK PO SCH ×2 (08:38→21:40)
[2018-02-16] MEDS: INSULIN NPH/REGULAR 70/30 100 UNIT/ML SUBCUT SCH ×2 (08:41→17:34)
[2018-02-16] MEDS: POTASSIUM CHLORIDE 20 MEQ TABLET PO SCH (08:41)
[2018-02-16] MEDS: LATANOPROST 0.005% OPH SOLN 2.5 ML BOTTLE BOTH EYES SCH (10:04)
[2018-02-16] MEDS: LACTULOSE 20 GM/30 ML UDCUP PO SCH ×2 (10:04→21:39)
[2018-02-16] MEDS: RIVAROXABAN 20 MG TABLET PO SCH (12:35)
[2018-02-16] MEDS: MONTELUKAST 10 MG TABLET PO SCH (21:39)
[2018-02-17] MEDS: INSULIN LISPRO 100 UNIT/ML SUBCUT SCH ×2 (00:53→05:51)
[2018-02-17 05:11] LABS: Basophils % 0.2 % (0.0-0.8); Eosinophils # 0.2 10*3/uL (0.0-0.87); Eosinophils % 1.5 % (0.00-10.9); Hematocrit 28.3 VOL% (35.7-47.0); Immature Granulocytes % 0.6 %; Immature Granulocytes Absolute 0.07 #; Lymphocytes % 17.4 % (21.3-54.2); Mean Corpuscular HGB Conc 31.8 GM/DL (32-36); Mean Corpuscular Hemoglobin 28 PG (27-34); Mean Platelet Volume 10.5 FL (9.6-12.0); Monocytes # 1.5 10*3/uL (0.11-0.8); Monocytes % 12.6 % (1.7-12.7); Neutrophils # 7.9 10*3/uL (1.4-7.4); Neutrophils % 67.7 % (38.7-73.9); Platelet Count 268 T/CUMM (130-400); Red Blood Count 3.18 MC/CUMM (3.8-5.5); Red Cell Distribution Width 16.2 % (9.3-17.3); White Blood Count 11.7 T/CUMM (4-12)
[2018-02-17 05:31] LABS: Calcium 8.2 MG/DL (8.5-10.1); Osmolality,Calculated 300.3 MOS/KG (273-304); Potassium 4.6 MMOL/L (3.5-5.1)
[2018-02-17] MEDS: SODIUM CHLORIDE 0.9% 1,000 ML IV SCH (05:51)
[2018-02-17] MEDS ORDERED: MAGNESIUM SULF RIDER 4 GM in PREMIX 1 EACH IV PRN (08:28)
[2018-02-17] MEDS ORDERED: MAGNESIUM SULF RIDER 2 GM in PREMIX 1 EACH IV PRN (08:28)
[2018-02-17] MEDS: POTASSIUM CHLORIDE 20 MEQ TABLET PO SCH (09:02)
[2018-02-17] MEDS: CHOLECALCIFEROL 1,000 UNIT TABLET PO SCH (09:02)
[2018-02-17] MEDS: IRON (CARBONYL)/VIT C/B12/FA TABLET PO SCH (09:02)
[2018-02-17] MEDS: CYANOCOBALAMIN 500 MCG TABLET PO SCH (09:02)
[2018-02-17] MEDS: PANTOPRAZOLE 40 MG TABLET PO SCH (09:02)
[2018-02-17] MEDS: ASPIRIN EC 81 MG TABLET PO SCH (09:03)
[2018-02-17] MEDS: DOCUSATE SODIUM 100 MG CAPSULE PO SCH (09:03)
[2018-02-17] MEDS: RIVAROXABAN 20 MG TABLET PO SCH (09:03)
[2018-02-17] MEDS: CARVEDILOL 12.5 MG TABLET PO SCH (09:03)
[2018-02-17] MEDS: FUROSEMIDE 80 MG TABLET PO SCH (09:03)
[2018-02-17] MEDS: ALLOPURINOL 300 MG TABLET PO SCH (09:04)
[2018-02-17] MEDS: INSULIN NPH/REGULAR 70/30 100 UNIT/ML SUBCUT SCH (09:04)
[2018-02-17] MEDS: FLUTICASONE/SALMETEROL 500-50 DISKUS 14 DOSE INH SCH (09:05)
[2018-02-17] MEDS: POLYETHYLENE GLYCOL POWDER 17 GM PACK PO SCH (09:06)
[2018-02-17] MEDS: VERAPAMIL 120 MG TABLET PO SCH (09:06)
[2018-02-17] MEDS: LACTULOSE 20 GM/30 ML UDCUP PO SCH (09:06)
[2018-02-17] MEDS: LATANOPROST 0.005% OPH SOLN 2.5 ML BOTTLE BOTH EYES SCH (09:07)
[2018-02-17 11:32] VITALS: BP 127/70
== END 2018-02-17 12:40 | DRG 329 ==
LOC: EDBD → EDUNIT# → N.ED 12:44 → SUATTDRO 15:27 → N.EDINP 15:27 → N.2E 17:07 → N.CC 02-13 15:14 → N.TELEN 02-14 21:59
PROVIDERS: ADMIT Hospitalist; ATTEND Internal Medicine

== ENCOUNTER 2018-03-10 12:37 | Inpatient (IN) ==
[2018-03-10] MEDS ORDERED: ONDANSETRON 4 MG/2 ML VIAL IV STA (12:56)
[2018-03-10] MEDS ORDERED: ALBUTEROL/IPRATROPIUM 3 ML NEB RESP TX STA (12:56)
[2018-03-10] MEDS ORDERED: FUROSEMIDE 100 MG/10 ML VIAL IV STA (12:56)
[2018-03-10] MEDS ORDERED: NITROGLYCERIN 2% OINT 1 INCH/GM PACK TOP STA (12:56)
[2018-03-10 14:05] LABS: Basophils % 0.5 % (0.0-0.8); Eosinophils # 0.1 10*3/uL (0.0-0.87); Eosinophils % 1.2 % (0.00-10.9); Hematocrit 26.9 VOL% (35.7-47.0); Hemoglobin 8.2 GM/DL (12.0-16.0); Immature Granulocytes % 0.3 %; Immature Granulocytes Absolute 0.03 #; Lymphocytes # 2.5 10*3/uL (1.4-4.0); Lymphocytes % 27.9 % (21.3-54.2); Mean Corpuscular HGB Conc 30.5 GM/DL (32-36); Mean Corpuscular Hemoglobin 30 PG (27-34); Mean Corpuscular Volume 97.5 FL (87-102); Mean Platelet Volume 10.7 FL (9.6-12.0); Monocytes % 11.6 % (1.7-12.7); Neutrophils # 5.2 10*3/uL (1.4-7.4); Neutrophils % 58.5 % (38.7-73.9); Platelet Count 294 T/CUMM (130-400); Red Blood Count 2.76 MC/CUMM (3.8-5.5); Red Cell Distribution Width 20.8 % (9.3-17.3); White Blood Count 8.8 T/CUMM (4-12)
[2018-03-10 14:18] LABS: INR 1.4; PT Patient Result 14.9 SECS; Partial Thromboplastin Time 37.6 SECS (0-40)
[2018-03-10 14:33] LABS: Alanine Aminotransferase 19 U/L (13-56); Albumin 2.4 G/DL (3.4-5.0); Alkaline Phosphatase 108 U/L (45-117); Aspartate Amino Transferase 21 U/L (0-37); Bilirubin,Total < 0.39 MG/DL (0.2-1.0); Blood Urea Nitrogen 46 MG/DL (7-18); Calcium 8.4 MG/DL (8.5-10.1); Glucose 131 MG/DL (74-106); Potassium 5.1 MMOL/L (3.5-5.1); Sodium 136 MMOL/L (136-145); Total Protein 7.9 G/DL (6.4-8.3); Troponin I < 0.015 NG/ML (0.00-0.045)
[2018-03-10] MEDS ORDERED: ONDANSETRON 4 MG/2 ML VIAL IV PRN (15:25)
[2018-03-10] MEDS ORDERED: diphenhydrAMINE CAP 25 MG CAPSULE PO PRN (15:25)
[2018-03-10] MEDS ORDERED: NICOTINE 21 MG/24 HR PATCH TRANSDERM PRN (15:25)
[2018-03-10] MEDS ORDERED: guaiFENesin/DM ER 600-30 MG TABLET PO PRN (15:25)
[2018-03-10] MEDS ORDERED: DEXTROSE 50% 25 GM/50 ML VIAL IV PRN (15:59)
[2018-03-10] MEDS ORDERED: GLUCAGON 1 MG VIAL IM PRN (15:59)
[2018-03-10 16:21] LABS: Bacteria,Urine Occasional /HPF (Few); Bilirubin,Urine Negative (Negative); Blood, Urine Negative (Negative); Glucose,Urine (UA) Negative (Negative); Hyaline Casts,Urine 3 /LPF (0-3); Ketones,Urine Negative (Negative); Nitrite,Urine Negative (Negative); Protein,Urine 100 MG/DL; RBC,Urine 17 /HPF (0-4); Squamous Epithelial Cell,Urine Occasional /HPF (0-10); Urine Color Yellow (Yellow); Urine Specific Gravity 1.012 (1.001-1.035); Urine Urobilinogen < 2.0 EU/DL (0.2-1.0); WBC,Urine 4 /HPF (0-6)
[2018-03-10 16:22] LABS: Apearance,Urine Hazy (Clear)
[2018-03-10] MEDS: INSULIN LISPRO 100 UNIT/ML SUBCUT SCH (17:38)
[2018-03-10] MEDS: ACETAMINOPHEN 325 MG TABLET PO PRN (18:18)
[2018-03-10] MEDS: CLINDAMYCIN INJ 600 MG in PREMIX 1 EACH IV SCH ×2 (18:18→23:05)
[2018-03-10] MEDS: FUROSEMIDE 40 MG/4 ML VIAL IV SCH (21:29)
[2018-03-11] MEDS: CLINDAMYCIN INJ 600 MG in PREMIX 1 EACH IV SCH ×3 (05:34→17:08)
[2018-03-11 07:08] LABS: Basophils % 0.5 % (0.0-0.8); Eosinophils # 0.2 10*3/uL (0.0-0.87); Eosinophils % 1.8 % (0.00-10.9); Hematocrit 25.8 VOL% (35.7-47.0); Hemoglobin 7.8 GM/DL (12.0-16.0); Immature Granulocytes % 0.3 %; Immature Granulocytes Absolute 0.03 #; Mean Corpuscular HGB Conc 30.2 GM/DL (32-36); Mean Corpuscular Hemoglobin 30 PG (27-34); Mean Corpuscular Volume 98.1 FL (87-102); Mean Platelet Volume 10.7 FL (9.6-12.0); Monocytes # 1.1 10*3/uL (0.11-0.8); Neutrophils # 4.4 10*3/uL (1.4-7.4); Neutrophils % 50.4 % (38.7-73.9); Platelet Count 278 T/CUMM (130-400); Red Blood Count 2.63 MC/CUMM (3.8-5.5); Red Cell Distribution Width 20.3 % (9.3-17.3); White Blood Count 8.7 T/CUMM (4-12)
[2018-03-11 07:24] LABS: Calcium 8.6 MG/DL (8.5-10.1); Potassium 5.1 MMOL/L (3.5-5.1)
[2018-03-11] MEDS ORDERED: ALBUTEROL 2.5 MG/3 ML NEB RESP TX PRN (08:35)
[2018-03-11] MEDS: FUROSEMIDE 40 MG/4 ML VIAL IV SCH (08:54)
[2018-03-11] MEDS ORDERED: SODIUM CHLORIDE 0.9% 1,000 ML IV PRN ×3 (09:55→14:26)
[2018-03-11] MEDS ORDERED: FUROSEMIDE 20 MG/2 ML VIAL IV ONE ×2 (10:00→21:30)
[2018-03-11] MEDS: CYANOCOBALAMIN 500 MCG TABLET PO SCH (10:08)
[2018-03-11] MEDS: CHOLECALCIFEROL 1,000 UNIT TABLET PO SCH (10:09)
[2018-03-11] MEDS: ASPIRIN EC 81 MG TABLET PO SCH (10:10)
[2018-03-11] MEDS: DOCUSATE SODIUM 100 MG CAPSULE PO SCH ×2 (10:11→21:58)
[2018-03-11] MEDS: FLUTICASONE/SALMETEROL 500-50 DISKUS 14 DOSE INH SCH ×2 (10:18→21:59)
[2018-03-11] MEDS: INSULIN LISPRO 100 UNIT/ML SUBCUT SCH ×3 (10:18→17:08)
[2018-03-11] MEDS: LATANOPROST 0.005% OPH SOLN 2.5 ML BOTTLE BOTH EYES SCH (10:19)
[2018-03-11] MEDS: IRON (CARBONYL)/VIT C/B12/FA TABLET PO SCH (10:19)
[2018-03-11] MEDS: INSULIN NPH/REGULAR 70/30 100 UNIT/ML SUBCUT SCH ×2 (10:19→17:53)
[2018-03-11] MEDS: SODIUM CHLORIDE 0.9% 1,000 ML IV SCH (16:34)
[2018-03-11] MEDS: BACITRACIN OINT 0.9 GM PACK TOP SCH (17:07)
[2018-03-11] MEDS: MONTELUKAST 10 MG TABLET PO SCH (21:28)
[2018-03-12] MEDS: CLINDAMYCIN INJ 600 MG in PREMIX 1 EACH IV SCH ×6 (00:25→23:01)
[2018-03-12 05:55] LABS: Basophils # 0.1 10*3/uL (0.0-0.2); Basophils % 0.5 % (0.0-0.8); Eosinophils # 0.2 10*3/uL (0.0-0.87); Eosinophils % 1.8 % (0.00-10.9); Hematocrit 30.8 VOL% (35.7-47.0); Immature Granulocytes % 0.4 %; Immature Granulocytes Absolute 0.04 #; Lymphocytes # 2.8 10*3/uL (1.4-4.0); Lymphocytes % 26.7 % (21.3-54.2); Mean Corpuscular HGB Conc 31.8 GM/DL (32-36); Mean Corpuscular Hemoglobin 30 PG (27-34); Mean Corpuscular Volume 94.2 FL (87-102); Mean Platelet Volume 10.4 FL (9.6-12.0); Monocytes # 1.4 10*3/uL (0.11-0.8); Monocytes % 12.9 % (1.7-12.7); NRBC # 0.02 10*3/uL; Neutrophils # 6.1 10*3/uL (1.4-7.4); Neutrophils % 57.7 % (38.7-73.9); Platelet Count 293 T/CUMM (130-400); Red Blood Count 3.27 MC/CUMM (3.8-5.5); Red Cell Distribution Width 19.4 % (9.3-17.3); White Blood Count 10.6 T/CUMM (4-12)
[2018-03-12 05:59] LABS: Hemoglobin 9.8 GM/DL (12.0-16.0)
[2018-03-12] MEDS: SODIUM CHLORIDE 0.9% 1,000 ML IV SCH ×2 (07:42→13:22)
[2018-03-12 08:31] LABS: Calcium 8.9 MG/DL (8.5-10.1); Osmolality,Calculated 283.8 MOS/KG (273-304); Potassium 5.1 MMOL/L (3.5-5.1)
[2018-03-12] MEDS: INSULIN LISPRO 100 UNIT/ML SUBCUT SCH ×3 (08:43→17:25)
[2018-03-12] MEDS: INSULIN NPH/REGULAR 70/30 100 UNIT/ML SUBCUT SCH ×2 (08:43→17:25)
[2018-03-12] MEDS: DOCUSATE SODIUM 100 MG CAPSULE PO SCH ×2 (09:23→21:21)
[2018-03-12] MEDS: CYANOCOBALAMIN 500 MCG TABLET PO SCH (09:23)
[2018-03-12] MEDS: ASPIRIN EC 81 MG TABLET PO SCH (09:24)
[2018-03-12] MEDS: ALLOPURINOL 100 MG TABLET PO SCH (09:24)
[2018-03-12] MEDS: CHOLECALCIFEROL 1,000 UNIT TABLET PO SCH (09:24)
[2018-03-12] MEDS: ACETAMINOPHEN 325 MG TABLET PO PRN ×2 (09:24→17:27)
[2018-03-12] MEDS: FLUTICASONE/SALMETEROL 500-50 DISKUS 14 DOSE INH SCH ×2 (09:35→21:24)
[2018-03-12] MEDS: IRON (CARBONYL)/VIT C/B12/FA TABLET PO SCH (09:36)
[2018-03-12] MEDS: FUROSEMIDE 40 MG/4 ML VIAL IV SCH (09:36)
[2018-03-12] MEDS: LATANOPROST 0.005% OPH SOLN 2.5 ML BOTTLE BOTH EYES SCH (09:37)
[2018-03-12] MEDS: ERGOCALCIFEROL 50,000 UNIT CAPSULE PO SCH (10:01)
[2018-03-12] MEDS: LEVOTHYROXINE 50 MCG TABLET PO SCH (10:01)
[2018-03-12] MEDS: BACITRACIN OINT 0.9 GM PACK TOP SCH (12:02)
[2018-03-12] MEDS: MONTELUKAST 10 MG TABLET PO SCH (21:21)
[2018-03-13 04:36] LABS: Calcium 9.2 MG/DL (8.5-10.1)
[2018-03-13] MEDS: LEVOTHYROXINE 50 MCG TABLET PO SCH (06:26)
[2018-03-13] MEDS: CLINDAMYCIN INJ 600 MG in PREMIX 1 EACH IV SCH ×4 (06:26→23:20)
[2018-03-13] MEDS ORDERED: CARVEDILOL 12.5 MG TABLET PO SCH (09:00)
[2018-03-13] MEDS: INSULIN LISPRO 100 UNIT/ML SUBCUT SCH ×3 (09:08→17:27)
[2018-03-13] MEDS: INSULIN NPH/REGULAR 70/30 100 UNIT/ML SUBCUT SCH ×2 (09:08→17:26)
[2018-03-13] MEDS: CYANOCOBALAMIN 500 MCG TABLET PO SCH (09:09)
[2018-03-13] MEDS: ALLOPURINOL 100 MG TABLET PO SCH (09:09)
[2018-03-13] MEDS: IRON (CARBONYL)/VIT C/B12/FA TABLET PO SCH (09:09)
[2018-03-13] MEDS: FUROSEMIDE 40 MG/4 ML VIAL IV SCH (09:09)
[2018-03-13] MEDS: DOCUSATE SODIUM 100 MG CAPSULE PO SCH ×2 (09:09→20:49)
[2018-03-13] MEDS: ASPIRIN EC 81 MG TABLET PO SCH (09:09)
[2018-03-13] MEDS: LATANOPROST 0.005% OPH SOLN 2.5 ML BOTTLE BOTH EYES SCH (09:10)
[2018-03-13] MEDS: FLUTICASONE/SALMETEROL 500-50 DISKUS 14 DOSE INH SCH ×2 (09:41→20:50)
[2018-03-13] MEDS: BACITRACIN OINT 0.9 GM PACK TOP SCH (09:41)
[2018-03-13] MEDS: RIVAROXABAN 20 MG TABLET PO SCH (11:51)
[2018-03-13] MEDS: CARVEDILOL 25 MG TABLET PO SCH (20:49)
[2018-03-13] MEDS: MONTELUKAST 10 MG TABLET PO SCH (20:49)
[2018-03-14 04:18] LABS: Basophils % 0.3 % (0.0-0.8); Eosinophils # 0.1 10*3/uL (0.0-0.87); Eosinophils % 1.3 % (0.00-10.9); Hematocrit 29.6 VOL% (35.7-47.0); Hemoglobin 9.3 GM/DL (12.0-16.0); Immature Granulocytes % 0.7 %; Immature Granulocytes Absolute 0.06 #; Lymphocytes # 2.8 10*3/uL (1.4-4.0); Lymphocytes % 31.1 % (21.3-54.2); Mean Corpuscular HGB Conc 31.4 GM/DL (32-36); Mean Corpuscular Hemoglobin 30 PG (27-34); Mean Corpuscular Volume 94.3 FL (87-102); Monocytes # 1.2 10*3/uL (0.11-0.8); Monocytes % 13.2 % (1.7-12.7); Neutrophils # 4.8 10*3/uL (1.4-7.4); Neutrophils % 53.4 % (38.7-73.9); Platelet Count 251 T/CUMM (130-400); Red Blood Count 3.14 MC/CUMM (3.8-5.5); Red Cell Distribution Width 18.7 % (9.3-17.3)
[2018-03-14 04:54] LABS: Calcium 8.8 MG/DL (8.5-10.1); Potassium 5.6 MMOL/L (3.5-5.1)
[2018-03-14] MEDS: CLINDAMYCIN INJ 600 MG in PREMIX 1 EACH IV SCH ×4 (05:36→23:50)
[2018-03-14] MEDS: LEVOTHYROXINE 50 MCG TABLET PO SCH (06:31)
[2018-03-14] MEDS: ASPIRIN EC 81 MG TABLET PO SCH (08:27)
[2018-03-14] MEDS: CYANOCOBALAMIN 500 MCG TABLET PO SCH (08:27)
[2018-03-14] MEDS: IRON (CARBONYL)/VIT C/B12/FA TABLET PO SCH (08:27)
[2018-03-14] MEDS: ALLOPURINOL 100 MG TABLET PO SCH (08:27)
[2018-03-14] MEDS: RIVAROXABAN 20 MG TABLET PO SCH (08:27)
[2018-03-14] MEDS: FUROSEMIDE 40 MG/4 ML VIAL IV SCH (08:27)
[2018-03-14] MEDS: INSULIN NPH/REGULAR 70/30 100 UNIT/ML SUBCUT SCH ×2 (08:28→16:41)
[2018-03-14] MEDS: FLUTICASONE/SALMETEROL 500-50 DISKUS 14 DOSE INH SCH ×2 (08:28→21:03)
[2018-03-14] MEDS: LATANOPROST 0.005% OPH SOLN 2.5 ML BOTTLE BOTH EYES SCH (08:28)
[2018-03-14] MEDS: INSULIN LISPRO 100 UNIT/ML SUBCUT SCH ×3 (08:28→16:40)
[2018-03-14] MEDS: CARVEDILOL 25 MG TABLET PO SCH ×2 (08:34→21:04)
[2018-03-14] MEDS: DOCUSATE SODIUM 100 MG CAPSULE PO SCH ×2 (08:34→21:03)
[2018-03-14] MEDS: BACITRACIN OINT 0.9 GM PACK TOP SCH (12:28)
[2018-03-14] MEDS: POLYETHYLENE GLYCOL POWDER 17 GM PACK PO SCH (12:33)
[2018-03-14] MEDS ORDERED: SKIN HEALING OINT (AQUAPHOR) 50 GM TUBE TOP PRN (15:13)
[2018-03-14] MEDS: ACETAMINOPHEN 325 MG TABLET PO PRN (16:39)
[2018-03-14] MEDS: ALBUTEROL/IPRATROPIUM 3 ML NEB RESP TX SCH ×3 (17:49→20:02)
[2018-03-14] MEDS: MONTELUKAST 10 MG TABLET PO SCH (21:03)
[2018-03-14] MEDS: hydrALAZINE 25 MG TABLET PO SCH (21:04)
[2018-03-15] MEDS: ALBUTEROL/IPRATROPIUM 3 ML NEB RESP TX SCH ×7 (00:22→23:15)
[2018-03-15 03:09] LABS: Basophils % 0.4 % (0.0-0.8); Eosinophils # 0.3 10*3/uL (0.0-0.87); Eosinophils % 3.2 % (0.00-10.9); Hematocrit 28.1 VOL% (35.7-47.0); Immature Granulocytes % 0.4 %; Immature Granulocytes Absolute 0.03 #; Lymphocytes # 2.5 10*3/uL (1.4-4.0); Lymphocytes % 32.4 % (21.3-54.2); Mean Corpuscular Hemoglobin 30 PG (27-34); Mean Corpuscular Volume 92.1 FL (87-102); Mean Platelet Volume 10.3 FL (9.6-12.0); Monocytes # 1.1 10*3/uL (0.11-0.8); Monocytes % 14.6 % (1.7-12.7); Neutrophils # 3.8 10*3/uL (1.4-7.4); Platelet Count 250 T/CUMM (130-400); Red Blood Count 3.05 MC/CUMM (3.8-5.5); Red Cell Distribution Width 18.4 % (9.3-17.3); White Blood Count 7.8 T/CUMM (4-12)
[2018-03-15 03:35] LABS: Calcium 8.6 MG/DL (8.5-10.1); Osmolality,Calculated 292.5 MOS/KG (273-304); Potassium 5.1 MMOL/L (3.5-5.1)
[2018-03-15] MEDS: LEVOTHYROXINE 50 MCG TABLET PO SCH (05:56)
[2018-03-15] MEDS: CLINDAMYCIN INJ 600 MG in PREMIX 1 EACH IV SCH ×4 (05:56→23:15)
[2018-03-15] MEDS: INSULIN LISPRO 100 UNIT/ML SUBCUT SCH ×3 (09:04→17:40)
[2018-03-15] MEDS: BACITRACIN OINT 0.9 GM PACK TOP SCH (10:15)
[2018-03-15] MEDS: FUROSEMIDE 40 MG/4 ML VIAL IV SCH (10:16)
[2018-03-15] MEDS: FLUTICASONE/SALMETEROL 500-50 DISKUS 14 DOSE INH SCH ×2 (10:16→21:26)
[2018-03-15] MEDS: INSULIN NPH/REGULAR 70/30 100 UNIT/ML SUBCUT SCH ×2 (10:16→17:41)
[2018-03-15] MEDS: ERGOCALCIFEROL 50,000 UNIT CAPSULE PO SCH (10:17)
[2018-03-15] MEDS: CYANOCOBALAMIN 500 MCG TABLET PO SCH (10:17)
[2018-03-15] MEDS: DOCUSATE SODIUM 100 MG CAPSULE PO SCH ×2 (10:17→21:27)
[2018-03-15] MEDS: IRON (CARBONYL)/VIT C/B12/FA TABLET PO SCH (10:17)
[2018-03-15] MEDS: hydrALAZINE 25 MG TABLET PO SCH ×3 (10:18→21:27)
[2018-03-15] MEDS: ASPIRIN EC 81 MG TABLET PO SCH (10:18)
[2018-03-15] MEDS: LATANOPROST 0.005% OPH SOLN 2.5 ML BOTTLE BOTH EYES SCH (10:18)
[2018-03-15] MEDS: RIVAROXABAN 20 MG TABLET PO SCH (10:18)
[2018-03-15] MEDS: ALLOPURINOL 100 MG TABLET PO SCH (10:19)
[2018-03-15] MEDS: POLYETHYLENE GLYCOL POWDER 17 GM PACK PO SCH (10:19)
[2018-03-15] MEDS: CARVEDILOL 25 MG TABLET PO SCH (10:19)
[2018-03-15] MEDS: CARVEDILOL 12.5 MG TABLET PO SCH ×2 (12:30→16:33)
[2018-03-15] MEDS ORDERED: SODIUM CHLORIDE 0.65% NASAL SPRAY 45 ML BOTTLE BOTH NARES PRN (12:38)
[2018-03-15] MEDS: VERAPAMIL 120 MG TABLET PO SCH (12:40)
[2018-03-15] MEDS: MONTELUKAST 10 MG TABLET PO SCH (21:27)
[2018-03-16] MEDS: ALBUTEROL/IPRATROPIUM 3 ML NEB RESP TX SCH ×6 (03:15→23:09)
[2018-03-16 05:13] LABS: Basophils % 0.6 % (0.0-0.8); Eosinophils # 0.3 10*3/uL (0.0-0.87); Eosinophils % 4.3 % (0.00-10.9); Hematocrit 29.8 VOL% (35.7-47.0); Hemoglobin 9.5 GM/DL (12.0-16.0); Immature Granulocytes % 0.4 %; Immature Granulocytes Absolute 0.03 #; Lymphocytes # 2.4 10*3/uL (1.4-4.0); Lymphocytes % 35.3 % (21.3-54.2); Mean Corpuscular HGB Conc 31.9 GM/DL (32-36); Mean Corpuscular Hemoglobin 30 PG (27-34); Mean Corpuscular Volume 94.3 FL (87-102); Mean Platelet Volume 10.5 FL (9.6-12.0); Monocytes % 14.3 % (1.7-12.7); Neutrophils # 3.1 10*3/uL (1.4-7.4); Neutrophils % 45.1 % (38.7-73.9); Platelet Count 172 T/CUMM (130-400); Red Blood Count 3.16 MC/CUMM (3.8-5.5); Red Cell Distribution Width 17.9 % (9.3-17.3); White Blood Count 6.8 T/CUMM (4-12)
[2018-03-16 05:31] LABS: Calcium 8.7 MG/DL (8.5-10.1); Osmolality,Calculated 294.5 MOS/KG (273-304); Potassium 5.2 MMOL/L (3.5-5.1)
[2018-03-16] MEDS: CLINDAMYCIN INJ 600 MG in PREMIX 1 EACH IV SCH ×3 (06:54→16:57)
[2018-03-16] MEDS: INSULIN LISPRO 100 UNIT/ML SUBCUT SCH ×3 (08:31→16:58)
[2018-03-16] MEDS: LEVOTHYROXINE 50 MCG TABLET PO SCH (08:31)
[2018-03-16] MEDS: FLUTICASONE/SALMETEROL 500-50 DISKUS 14 DOSE INH SCH ×2 (09:19→21:47)
[2018-03-16] MEDS: CYANOCOBALAMIN 500 MCG TABLET PO SCH (09:19)
[2018-03-16] MEDS: hydrALAZINE 25 MG TABLET PO SCH (09:19)
[2018-03-16] MEDS: FUROSEMIDE 40 MG TABLET PO SCH (09:20)
[2018-03-16] MEDS: LATANOPROST 0.005% OPH SOLN 2.5 ML BOTTLE BOTH EYES SCH (09:20)
[2018-03-16] MEDS: ALLOPURINOL 100 MG TABLET PO SCH (09:20)
[2018-03-16] MEDS: RIVAROXABAN 20 MG TABLET PO SCH (09:20)
[2018-03-16] MEDS: POLYETHYLENE GLYCOL POWDER 17 GM PACK PO SCH (09:21)
[2018-03-16] MEDS: ASPIRIN EC 81 MG TABLET PO SCH (09:21)
[2018-03-16] MEDS: DOCUSATE SODIUM 100 MG CAPSULE PO SCH ×2 (09:21→21:46)
[2018-03-16] MEDS: BACITRACIN OINT 0.9 GM PACK TOP SCH (09:21)
[2018-03-16] MEDS: VERAPAMIL 120 MG TABLET PO SCH (09:21)
[2018-03-16] MEDS: IRON (CARBONYL)/VIT C/B12/FA TABLET PO SCH (09:21)
[2018-03-16] MEDS: CARVEDILOL 12.5 MG TABLET PO SCH ×2 (09:21→16:59)
[2018-03-16] MEDS: INSULIN NPH/REGULAR 70/30 100 UNIT/ML SUBCUT SCH ×2 (09:26→16:58)
[2018-03-16 17:44] LABS: Hematocrit 29.7 VOL% (35.7-47.0); Hemoglobin 9.4 GM/DL (12.0-16.0)
[2018-03-16] MEDS: MONTELUKAST 10 MG TABLET PO SCH (21:46)
[2018-03-17] MEDS: CLINDAMYCIN INJ 600 MG in PREMIX 1 EACH IV SCH ×6 (00:02→23:46)
[2018-03-17] MEDS: ALBUTEROL/IPRATROPIUM 3 ML NEB RESP TX SCH ×6 (03:07→23:21)
[2018-03-17 03:19] LABS: Basophils % 0.6 % (0.0-0.8); Eosinophils # 0.3 10*3/uL (0.0-0.87); Eosinophils % 4.5 % (0.00-10.9); Hematocrit 30.1 VOL% (35.7-47.0); Hemoglobin 9.4 GM/DL (12.0-16.0); Immature Granulocytes % 0.4 %; Immature Granulocytes Absolute 0.03 #; Lymphocytes # 2.4 10*3/uL (1.4-4.0); Lymphocytes % 36.1 % (21.3-54.2); Mean Corpuscular HGB Conc 31.2 GM/DL (32-36); Mean Corpuscular Hemoglobin 29 PG (27-34); Mean Corpuscular Volume 93.8 FL (87-102); Mean Platelet Volume 10.2 FL (9.6-12.0); Monocytes # 0.9 10*3/uL (0.11-0.8); Monocytes % 13.8 % (1.7-12.7); Neutrophils % 44.6 % (38.7-73.9); Platelet Count 249 T/CUMM (130-400); Red Blood Count 3.21 MC/CUMM (3.8-5.5); Red Cell Distribution Width 18.2 % (9.3-17.3); White Blood Count 6.7 T/CUMM (4-12)
[2018-03-17 03:48] LABS: Calcium 8.9 MG/DL (8.5-10.1); Osmolality,Calculated 295.5 MOS/KG (273-304); Potassium 5.2 MMOL/L (3.5-5.1)
[2018-03-17] MEDS: LEVOTHYROXINE 50 MCG TABLET PO SCH (05:48)
[2018-03-17] MEDS: POLYETHYLENE GLYCOL POWDER 17 GM PACK PO SCH (09:37)
[2018-03-17] MEDS: INSULIN NPH/REGULAR 70/30 100 UNIT/ML SUBCUT SCH ×2 (09:37→16:57)
[2018-03-17] MEDS: INSULIN LISPRO 100 UNIT/ML SUBCUT SCH ×3 (09:37→16:57)
[2018-03-17] MEDS: FUROSEMIDE 40 MG TABLET PO SCH (09:38)
[2018-03-17] MEDS: CYANOCOBALAMIN 500 MCG TABLET PO SCH (09:38)
[2018-03-17] MEDS: IRON (CARBONYL)/VIT C/B12/FA TABLET PO SCH (09:38)
[2018-03-17] MEDS: BACITRACIN OINT 0.9 GM PACK TOP SCH (09:38)
[2018-03-17] MEDS: DOCUSATE SODIUM 100 MG CAPSULE PO SCH ×2 (09:39→22:22)
[2018-03-17] MEDS: ASPIRIN EC 81 MG TABLET PO SCH (09:39)
[2018-03-17] MEDS: ALLOPURINOL 100 MG TABLET PO SCH (09:39)
[2018-03-17] MEDS: RIVAROXABAN 20 MG TABLET PO SCH (09:39)
[2018-03-17] MEDS: VERAPAMIL 120 MG TABLET PO SCH (09:39)
[2018-03-17] MEDS: CARVEDILOL 12.5 MG TABLET PO SCH ×2 (09:39→16:58)
[2018-03-17] MEDS: FLUTICASONE/SALMETEROL 500-50 DISKUS 14 DOSE INH SCH ×2 (09:40→22:22)
[2018-03-17] MEDS: LATANOPROST 0.005% OPH SOLN 2.5 ML BOTTLE BOTH EYES SCH (09:41)
[2018-03-17] MEDS: MONTELUKAST 10 MG TABLET PO SCH (22:22)
[2018-03-18] MEDS: ALBUTEROL/IPRATROPIUM 3 ML NEB RESP TX SCH ×6 (02:14→23:55)
[2018-03-18 05:13] LABS: Basophils % 0.5 % (0.0-0.8); Eosinophils # 0.2 10*3/uL (0.0-0.87); Eosinophils % 2.8 % (0.00-10.9); Hematocrit 31.1 VOL% (35.7-47.0); Hemoglobin 9.8 GM/DL (12.0-16.0); Immature Granulocytes % 0.3 %; Immature Granulocytes Absolute 0.02 #; Lymphocytes # 2.7 10*3/uL (1.4-4.0); Lymphocytes % 36.4 % (21.3-54.2); Mean Corpuscular HGB Conc 31.5 GM/DL (32-36); Mean Corpuscular Hemoglobin 30 PG (27-34); Mean Platelet Volume 10.8 FL (9.6-12.0); Monocytes # 0.9 10*3/uL (0.11-0.8); Monocytes % 11.9 % (1.7-12.7); Neutrophils # 3.6 10*3/uL (1.4-7.4); Neutrophils % 48.1 % (38.7-73.9); Platelet Count 250 T/CUMM (130-400); Red Blood Count 3.31 MC/CUMM (3.8-5.5); Red Cell Distribution Width 17.9 % (9.3-17.3); White Blood Count 7.5 T/CUMM (4-12)
[2018-03-18 05:33] LABS: Calcium 9.1 MG/DL (8.5-10.1); Osmolality,Calculated 295.7 MOS/KG (273-304); Potassium 5.1 MMOL/L (3.5-5.1)
[2018-03-18] MEDS: CLINDAMYCIN INJ 600 MG in PREMIX 1 EACH IV SCH ×3 (06:33→17:22)
[2018-03-18] MEDS: LEVOTHYROXINE 50 MCG TABLET PO SCH (06:33)
[2018-03-18] MEDS: FUROSEMIDE 40 MG TABLET PO SCH (09:30)
[2018-03-18] MEDS: ASPIRIN EC 81 MG TABLET PO SCH (09:30)
[2018-03-18] MEDS: POLYETHYLENE GLYCOL POWDER 17 GM PACK PO SCH (09:30)
[2018-03-18] MEDS: CYANOCOBALAMIN 500 MCG TABLET PO SCH (09:31)
[2018-03-18] MEDS: CARVEDILOL 12.5 MG TABLET PO SCH ×2 (09:31→09:43)
[2018-03-18] MEDS: RIVAROXABAN 20 MG TABLET PO SCH (09:31)
[2018-03-18] MEDS: DOCUSATE SODIUM 100 MG CAPSULE PO SCH ×2 (09:31→20:57)
[2018-03-18] MEDS: VERAPAMIL SR 240 MG TABLET PO SCH (09:31)
[2018-03-18] MEDS: ALLOPURINOL 100 MG TABLET PO SCH (09:31)
[2018-03-18] MEDS: IRON (CARBONYL)/VIT C/B12/FA TABLET PO SCH (09:31)
[2018-03-18] MEDS: BACITRACIN OINT 0.9 GM PACK TOP SCH (09:32)
[2018-03-18] MEDS: INSULIN NPH/REGULAR 70/30 100 UNIT/ML SUBCUT SCH ×2 (09:32→17:19)
[2018-03-18] MEDS: INSULIN LISPRO 100 UNIT/ML SUBCUT SCH ×3 (09:32→17:19)
[2018-03-18] MEDS: FLUTICASONE/SALMETEROL 500-50 DISKUS 14 DOSE INH SCH ×2 (09:33→20:57)
[2018-03-18] MEDS: LATANOPROST 0.005% OPH SOLN 2.5 ML BOTTLE BOTH EYES SCH (09:34)
[2018-03-18] MEDS: NEBIVOLOL 10 MG TABLET PO SCH (15:06)
[2018-03-18] MEDS: MONTELUKAST 10 MG TABLET PO SCH (20:56)
[2018-03-19] MEDS: CLINDAMYCIN INJ 600 MG in PREMIX 1 EACH IV SCH ×5 (01:21→23:05)
[2018-03-19] MEDS: ALBUTEROL/IPRATROPIUM 3 ML NEB RESP TX SCH ×6 (03:48→23:43)
[2018-03-19 05:12] LABS: Basophils # 0.1 10*3/uL (0.0-0.2); Basophils % 0.6 % (0.0-0.8); Eosinophils # 0.2 10*3/uL (0.0-0.87); Eosinophils % 2.8 % (0.00-10.9); Hematocrit 29.2 VOL% (35.7-47.0); Hemoglobin 9.1 GM/DL (12.0-16.0); Immature Granulocytes % 0.5 %; Immature Granulocytes Absolute 0.04 #; Lymphocytes # 3.1 10*3/uL (1.4-4.0); Lymphocytes % 38.5 % (21.3-54.2); Mean Corpuscular HGB Conc 31.2 GM/DL (32-36); Mean Corpuscular Hemoglobin 29 PG (27-34); Mean Corpuscular Volume 93.6 FL (87-102); Mean Platelet Volume 10.8 FL (9.6-12.0); Monocytes % 11.8 % (1.7-12.7); Neutrophils # 3.7 10*3/uL (1.4-7.4); Neutrophils % 45.8 % (38.7-73.9); Platelet Count 234 T/CUMM (130-400); Red Blood Count 3.12 MC/CUMM (3.8-5.5); Red Cell Distribution Width 17.9 % (9.3-17.3); White Blood Count 8.1 T/CUMM (4-12)
[2018-03-19 05:40] LABS: Calcium 9.2 MG/DL (8.5-10.1); Osmolality,Calculated 294.8 MOS/KG (273-304); Potassium 5.4 MMOL/L (3.5-5.1)
[2018-03-19] MEDS: LEVOTHYROXINE 50 MCG TABLET PO SCH (06:05)
[2018-03-19] MEDS: INSULIN LISPRO 100 UNIT/ML SUBCUT SCH ×3 (09:05→17:08)
[2018-03-19] MEDS: VERAPAMIL SR 240 MG TABLET PO SCH (09:06)
[2018-03-19] MEDS: NEBIVOLOL 10 MG TABLET PO SCH (09:06)
[2018-03-19] MEDS: POLYETHYLENE GLYCOL POWDER 17 GM PACK PO SCH (09:06)
[2018-03-19] MEDS: INSULIN NPH/REGULAR 70/30 100 UNIT/ML SUBCUT SCH ×2 (09:06→17:09)
[2018-03-19] MEDS: BACITRACIN OINT 0.9 GM PACK TOP SCH (09:06)
[2018-03-19] MEDS: DOCUSATE SODIUM 100 MG CAPSULE PO SCH ×2 (09:07→21:14)
[2018-03-19] MEDS: ERGOCALCIFEROL 50,000 UNIT CAPSULE PO SCH (09:07)
[2018-03-19] MEDS: RIVAROXABAN 20 MG TABLET PO SCH (09:07)
[2018-03-19] MEDS: ASPIRIN EC 81 MG TABLET PO SCH (09:07)
[2018-03-19] MEDS: ALLOPURINOL 100 MG TABLET PO SCH (09:07)
[2018-03-19] MEDS: CYANOCOBALAMIN 500 MCG TABLET PO SCH (09:07)
[2018-03-19] MEDS: FUROSEMIDE 40 MG TABLET PO SCH (09:07)
[2018-03-19] MEDS: IRON (CARBONYL)/VIT C/B12/FA TABLET PO SCH (09:07)
[2018-03-19] MEDS: FLUTICASONE/SALMETEROL 500-50 DISKUS 14 DOSE INH SCH ×2 (09:08→21:14)
[2018-03-19] MEDS: LATANOPROST 0.005% OPH SOLN 2.5 ML BOTTLE BOTH EYES SCH (09:08)
[2018-03-19] MEDS ORDERED: FUROSEMIDE 40 MG/4 ML VIAL IV ONE (11:09)
[2018-03-19] MEDS ORDERED: SODIUM POLYSTYRENE SULFATE 15 GM/60 ML BOTTLE PO SCH (13:00)
[2018-03-19] MEDS: MONTELUKAST 10 MG TABLET PO SCH (21:14)
[2018-03-20] MEDS: ALBUTEROL/IPRATROPIUM 3 ML NEB RESP TX SCH ×6 (03:48→22:49)
[2018-03-20 05:31] LABS: Calcium 9.1 MG/DL (8.5-10.1); Osmolality,Calculated 286.2 MOS/KG (273-304); Potassium 5.5 MMOL/L (3.5-5.1)
[2018-03-20] MEDS: LEVOTHYROXINE 50 MCG TABLET PO SCH (05:50)
[2018-03-20] MEDS: CLINDAMYCIN INJ 600 MG in PREMIX 1 EACH IV SCH ×4 (05:55→23:08)
[2018-03-20] MEDS ORDERED: SODIUM POLYSTYRENE SULFATE 15 GM/60 ML BOTTLE PO SCH (06:00)
[2018-03-20] MEDS ORDERED: SODIUM POLYSTYRENE SULFATE 15 GM/60 ML BOTTLE PO ONE ×2 (07:40→13:23)
[2018-03-20] MEDS: CYANOCOBALAMIN 500 MCG TABLET PO SCH (08:48)
[2018-03-20] MEDS: INSULIN NPH/REGULAR 70/30 100 UNIT/ML SUBCUT SCH ×2 (08:48→17:43)
[2018-03-20] MEDS: ASPIRIN EC 81 MG TABLET PO SCH (08:49)
[2018-03-20] MEDS: DOCUSATE SODIUM 100 MG CAPSULE PO SCH ×2 (08:49→21:53)
[2018-03-20] MEDS: RIVAROXABAN 20 MG TABLET PO SCH (08:49)
[2018-03-20] MEDS: ALLOPURINOL 100 MG TABLET PO SCH (08:49)
[2018-03-20] MEDS: VERAPAMIL SR 240 MG TABLET PO SCH (08:49)
[2018-03-20] MEDS: INSULIN LISPRO 100 UNIT/ML SUBCUT SCH ×3 (08:49→17:43)
[2018-03-20] MEDS: NEBIVOLOL 10 MG TABLET PO SCH (08:49)
[2018-03-20] MEDS: FUROSEMIDE 40 MG TABLET PO SCH (08:49)
[2018-03-20] MEDS: FLUTICASONE/SALMETEROL 500-50 DISKUS 14 DOSE INH SCH ×2 (08:50→21:53)
[2018-03-20] MEDS: POLYETHYLENE GLYCOL POWDER 17 GM PACK PO SCH (08:50)
[2018-03-20] MEDS: IRON (CARBONYL)/VIT C/B12/FA TABLET PO SCH (08:56)
[2018-03-20] MEDS: LATANOPROST 0.005% OPH SOLN 2.5 ML BOTTLE BOTH EYES SCH (09:03)
[2018-03-20] MEDS: BACITRACIN OINT 0.9 GM PACK TOP SCH (12:16)
[2018-03-20] MEDS ORDERED: FUROSEMIDE 40 MG/4 ML VIAL IV ONE (16:38)
[2018-03-20] MEDS ORDERED: FUROSEMIDE 80 MG TABLET PO SCH (16:39)
[2018-03-20] MEDS: MONTELUKAST 10 MG TABLET PO SCH (21:53)
[2018-03-21] MEDS: ALBUTEROL/IPRATROPIUM 3 ML NEB RESP TX SCH ×3 (02:37→10:37)
[2018-03-21 04:44] LABS: Basophils # 0.1 10*3/uL (0.0-0.2); Basophils % 0.7 % (0.0-0.8); Eosinophils # 0.2 10*3/uL (0.0-0.87); Eosinophils % 2.6 % (0.00-10.9); Hematocrit 28.5 VOL% (35.7-47.0); Hemoglobin 8.7 GM/DL (12.0-16.0); Immature Granulocytes % 0.4 %; Immature Granulocytes Absolute 0.03 #; Lymphocytes # 3.4 10*3/uL (1.4-4.0); Lymphocytes % 41.8 % (21.3-54.2); Mean Corpuscular HGB Conc 30.5 GM/DL (32-36); Mean Corpuscular Hemoglobin 29 PG (27-34); Mean Platelet Volume 11.2 FL (9.6-12.0); Monocytes # 0.9 10*3/uL (0.11-0.8); Monocytes % 11.3 % (1.7-12.7); Neutrophils # 3.5 10*3/uL (1.4-7.4); Neutrophils % 43.2 % (38.7-73.9); Platelet Count 233 T/CUMM (130-400); Red Cell Distribution Width 17.7 % (9.3-17.3); White Blood Count 8.1 T/CUMM (4-12)
[2018-03-21 05:11] LABS: Calcium 8.9 MG/DL (8.5-10.1); Osmolality,Calculated 288.8 MOS/KG (273-304); Potassium 5.2 MMOL/L (3.5-5.1)
[2018-03-21] MEDS: CLINDAMYCIN INJ 600 MG in PREMIX 1 EACH IV SCH ×2 (05:52→13:55)
[2018-03-21] MEDS: LEVOTHYROXINE 50 MCG TABLET PO SCH (05:52)
[2018-03-21] MEDS: ACETAMINOPHEN 325 MG TABLET PO PRN ×2 (06:00→15:35)
[2018-03-21] MEDS ORDERED: MAGNESIUM HYDROXIDE SUSP 30 ML UDCUP PO ONE (07:16)
[2018-03-21] MEDS: ASPIRIN EC 81 MG TABLET PO SCH (09:30)
[2018-03-21] MEDS: BACITRACIN OINT 0.9 GM PACK TOP SCH (09:30)
[2018-03-21] MEDS: CYANOCOBALAMIN 500 MCG TABLET PO SCH (09:30)
[2018-03-21] MEDS: POLYETHYLENE GLYCOL POWDER 17 GM PACK PO SCH (09:30)
[2018-03-21] MEDS: DOCUSATE SODIUM 100 MG CAPSULE PO SCH (09:30)
[2018-03-21] MEDS: INSULIN NPH/REGULAR 70/30 100 UNIT/ML SUBCUT SCH (09:31)
[2018-03-21] MEDS: FLUTICASONE/SALMETEROL 500-50 DISKUS 14 DOSE INH SCH (09:31)
[2018-03-21] MEDS: IRON (CARBONYL)/VIT C/B12/FA TABLET PO SCH (09:31)
[2018-03-21] MEDS: NEBIVOLOL 10 MG TABLET PO SCH (09:31)
[2018-03-21] MEDS: ALLOPURINOL 100 MG TABLET PO SCH (09:31)
[2018-03-21] MEDS: LATANOPROST 0.005% OPH SOLN 2.5 ML BOTTLE BOTH EYES SCH (09:32)
[2018-03-21] MEDS: RIVAROXABAN 20 MG TABLET PO SCH (09:33)
[2018-03-21] MEDS: VERAPAMIL SR 240 MG TABLET PO SCH (09:42)
[2018-03-21] MEDS: INSULIN LISPRO 100 UNIT/ML SUBCUT SCH ×2 (09:42→11:38)
[2018-03-21 11:46] VITALS: BP 137/68
== END 2018-03-21 17:50 | disposition home health service (06) | DRG 291 ==
LOC: EDBD → EDUNIT# → N.ED 12:37 → N.EDINP 15:25 → SUATTDRO 15:25 → N.TELES 17:00
PROVIDERS: ADMIT Internal Medicine

== ENCOUNTER 2018-03-22 10:49 | Inpatient (IN) ==
[2018-03-22 11:42] LABS: ABG Base Excess 1.7 MMOL/L (-2.5-2.5); ABG Oxygen Saturation 96.9 % (95-100); ABG PCO2 52.4 MM HG (35-48); ABG PH 7.346 (7.35-7.45); ABG PO2 100.1 MM HG (80-95); ABG TCO2 29.6 MMOL/L (23-27)
[2018-03-22] MEDS ORDERED: FUROSEMIDE 100 MG/10 ML VIAL IV STA (12:10)
[2018-03-22 12:21] LABS: Apearance,Urine Slightly Hazy (Clear); Bacteria,Urine Many /HPF (Few); Bilirubin,Urine Negative (Negative); Blood, Urine Moderate mg/dL (Negative); Glucose,Urine (UA) Negative (Negative); Hyaline Casts,Urine 3 /LPF (0-3); Ketones,Urine Negative (Negative); Nitrite,Urine Negative (Negative); Protein,Urine 100 MG/DL; RBC,Urine 36 /HPF (0-4); Squamous Epithelial Cell,Urine Occasional /HPF (0-10); Urine Color Yellow (Yellow); Urine Specific Gravity 1.011 (1.001-1.035); Urine Urobilinogen < 2.0 EU/DL (0.2-1.0); WBC,Urine 3 /HPF (0-6)
[2018-03-22 12:25] LABS: INR 1.1; PT Patient Result 11.6 SECS; Partial Thromboplastin Time 31.8 SECS (0-40)
[2018-03-22 12:27] LABS: Basophils # 0.1 10*3/uL (0.0-0.2); Basophils % 0.6 % (0.0-0.8); Eosinophils # 0.1 10*3/uL (0.0-0.87); Eosinophils % 0.7 % (0.00-10.9); Hematocrit 30.9 VOL% (35.7-47.0); Hemoglobin 9.5 GM/DL (12.0-16.0); Immature Granulocytes % 0.5 %; Immature Granulocytes Absolute 0.05 #; Lymphocytes # 2.2 10*3/uL (1.4-4.0); Lymphocytes % 20.2 % (21.3-54.2); Mean Corpuscular HGB Conc 30.7 GM/DL (32-36); Mean Corpuscular Hemoglobin 30 PG (27-34); Mean Platelet Volume 11.2 FL (9.6-12.0); Monocytes # 0.8 10*3/uL (0.11-0.8); Monocytes % 6.8 % (1.7-12.7); NRBC # 0.02 10*3/uL; Neutrophils # 7.8 10*3/uL (1.4-7.4); Neutrophils % 71.2 % (38.7-73.9); Platelet Count 232 T/CUMM (130-400); Red Blood Count 3.22 MC/CUMM (3.8-5.5); Red Cell Distribution Width 18.2 % (9.3-17.3)
[2018-03-22 12:35] LABS: Barbiturates Screen,Urine Negative (Negative); Benzodiazepines Screen,Urine Negative (Negative); Cannabinoid Screen,Urine Negative (Negative); Opiate Screen,Urine Positive (Negative); Phencyclidine Screen,Urine Negative (Negative)
[2018-03-22 12:47] LABS: Albumin 2.2 G/DL (3.4-5.0); Bilirubin,Total 0.4 MG/DL (0.2-1.0); Osmolality,Calculated 297.8 MOS/KG (273-304); Potassium 5.8 MMOL/L (3.5-5.1); Total Protein 7.3 G/DL (6.4-8.3)
[2018-03-22] MEDS ORDERED: GLUCAGON 1 MG VIAL IM PRN (16:45)
[2018-03-22] MEDS ORDERED: ONDANSETRON 4 MG/2 ML VIAL IV PRN (16:45)
[2018-03-22] MEDS ORDERED: DEXTROSE 50% 25 GM/50 ML VIAL IV PRN (16:45)
[2018-03-22] MEDS ORDERED: FLUTICASONE 50 MCG NASAL SPRAY 16 GM BOTTLE BOTH NARES PRN (16:47)
[2018-03-22] MEDS ORDERED: ALBUTEROL 2.5 MG/3 ML NEB RESP TX PRN (16:47)
[2018-03-22] MEDS ORDERED: SKIN HEALING OINT (AQUAPHOR) 50 GM TUBE TOP PRN (16:47)
[2018-03-22] MEDS ORDERED: metOLazone 2.5 MG TABLET PO PRN (16:47)
[2018-03-22] MEDS ORDERED: SODIUM POLYSTYRENE SULFATE 15 GM/60 ML BOTTLE PO ONE (17:42)
[2018-03-22] MEDS ORDERED: INFLUENZA VIRUS VACCINE 0.5 ML SYRINGE IM ONE (18:07)
[2018-03-22] MEDS: NITROGLYCERIN 2% OINT 1 INCH/GM PACK TOP SCH (18:19)
[2018-03-22] MEDS: INSULIN NPH/REGULAR 70/30 100 UNIT/ML SUBCUT SCH (18:19)
[2018-03-22] MEDS: CLINDAMYCIN 300 MG CAPSULE PO SCH ×2 (18:43→23:47)
[2018-03-22] MEDS: MONTELUKAST 10 MG TABLET PO SCH (21:01)
[2018-03-22] MEDS: DOCUSATE SODIUM 100 MG CAPSULE PO SCH (21:01)
[2018-03-22] MEDS: FUROSEMIDE 40 MG/4 ML VIAL IV SCH (21:03)
[2018-03-22] MEDS: INSULIN REGULAR 100 UNIT/ML SUBCUT SCH (21:08)
[2018-03-22] MEDS: FLUTICASONE/SALMETEROL 500-50 DISKUS 14 DOSE INH SCH (21:16)
[2018-03-23] MEDS: NITROGLYCERIN 2% OINT 1 INCH/GM PACK TOP SCH ×3 (00:06→12:43)
[2018-03-23 04:14] LABS: Basophils # 0.1 10*3/uL (0.0-0.2); Basophils % 0.6 % (0.0-0.8); Eosinophils # 0.2 10*3/uL (0.0-0.87); Eosinophils % 1.6 % (0.00-10.9); Immature Granulocytes % 0.5 %; Immature Granulocytes Absolute 0.05 #; Lymphocytes # 2.9 10*3/uL (1.4-4.0); Lymphocytes % 29.4 % (21.3-54.2); Mean Corpuscular Hemoglobin 30 PG (27-34); Mean Corpuscular Volume 95.4 FL (87-102); Monocytes % 10.3 % (1.7-12.7); NRBC # 0.02 10*3/uL; Neutrophils # 5.7 10*3/uL (1.4-7.4); Neutrophils % 57.6 % (38.7-73.9); Platelet Count 235 T/CUMM (130-400); Red Blood Count 3.04 MC/CUMM (3.8-5.5); White Blood Count 9.9 T/CUMM (4-12)
[2018-03-23 04:40] LABS: Calcium 9.4 MG/DL (8.5-10.1); Osmolality,Calculated 299.3 MOS/KG (273-304); Potassium 4.5 MMOL/L (3.5-5.1)
[2018-03-23] MEDS ORDERED: FUROSEMIDE 40 MG/4 ML VIAL ONE (05:10)
[2018-03-23] MEDS: FUROSEMIDE 40 MG/4 ML VIAL IV SCH (05:13)
[2018-03-23] MEDS: CLINDAMYCIN 300 MG CAPSULE PO SCH ×3 (05:14→18:22)
[2018-03-23] MEDS: LEVOTHYROXINE 50 MCG TABLET PO SCH (05:30)
[2018-03-23] MEDS: INSULIN REGULAR 100 UNIT/ML SUBCUT SCH ×4 (08:04→22:19)
[2018-03-23] MEDS: FUROSEMIDE 80 MG TABLET PO SCH ×2 (09:45→16:26)
[2018-03-23] MEDS: VERAPAMIL 120 MG TABLET PO SCH (09:45)
[2018-03-23] MEDS: RIVAROXABAN 20 MG TABLET PO SCH (09:45)
[2018-03-23] MEDS: ALLOPURINOL 100 MG TABLET PO SCH (09:45)
[2018-03-23] MEDS: CHOLECALCIFEROL 1,000 UNIT TABLET PO SCH (09:45)
[2018-03-23] MEDS: IRON (CARBONYL)/VIT C/B12/FA TABLET PO SCH (09:45)
[2018-03-23] MEDS: NEBIVOLOL 10 MG TABLET PO SCH (09:45)
[2018-03-23] MEDS: ASPIRIN EC 81 MG TABLET PO SCH (09:45)
[2018-03-23] MEDS: CYANOCOBALAMIN 500 MCG TABLET PO SCH (09:45)
[2018-03-23] MEDS: INSULIN NPH/REGULAR 70/30 100 UNIT/ML SUBCUT SCH ×2 (09:46→16:28)
[2018-03-23] MEDS: POLYETHYLENE GLYCOL POWDER 17 GM PACK PO SCH (09:47)
[2018-03-23] MEDS: DOCUSATE SODIUM 100 MG CAPSULE PO SCH ×2 (09:47→21:30)
[2018-03-23] MEDS: LATANOPROST 0.005% OPH SOLN 2.5 ML BOTTLE BOTH EYES SCH (09:50)
[2018-03-23] MEDS: FLUTICASONE/SALMETEROL 500-50 DISKUS 14 DOSE INH SCH ×2 (09:57→22:18)
[2018-03-23] MEDS: BACITRACIN OINT 28.35 GM TUBE TOP SCH (12:44)
[2018-03-23] MEDS: DOXAZOSIN 1 MG TABLET PO SCH (18:22)
[2018-03-23] MEDS: ACETAMINOPHEN 325 MG TABLET PO PRN (21:29)
[2018-03-23] MEDS: MONTELUKAST 10 MG TABLET PO SCH (21:30)
[2018-03-24] MEDS: CLINDAMYCIN 300 MG CAPSULE PO SCH ×5 (00:41→23:05)
[2018-03-24 04:22] LABS: Basophils # 0.1 10*3/uL (0.0-0.2); Basophils % 0.5 % (0.0-0.8); Eosinophils # 0.2 10*3/uL (0.0-0.87); Eosinophils % 1.4 % (0.00-10.9); Hemoglobin 8.7 GM/DL (12.0-16.0); Immature Granulocytes % 0.5 %; Immature Granulocytes Absolute 0.05 #; Lymphocytes # 4.5 10*3/uL (1.4-4.0); Lymphocytes % 40.1 % (21.3-54.2); Mean Corpuscular HGB Conc 31.1 GM/DL (32-36); Mean Corpuscular Hemoglobin 30 PG (27-34); Mean Corpuscular Volume 95.2 FL (87-102); Mean Platelet Volume 11.1 FL (9.6-12.0); Monocytes % 8.8 % (1.7-12.7); Neutrophils # 5.4 10*3/uL (1.4-7.4); Neutrophils % 48.7 % (38.7-73.9); Platelet Count 235 T/CUMM (130-400); Red Blood Count 2.94 MC/CUMM (3.8-5.5); Red Cell Distribution Width 17.8 % (9.3-17.3); White Blood Count 11.1 T/CUMM (4-12)
[2018-03-24 04:43] LABS: Calcium 9.2 MG/DL (8.5-10.1); Osmolality,Calculated 292.5 MOS/KG (273-304)
[2018-03-24] MEDS: LEVOTHYROXINE 50 MCG TABLET PO SCH (06:00)
[2018-03-24] MEDS: VERAPAMIL 120 MG TABLET PO SCH (08:38)
[2018-03-24] MEDS: NEBIVOLOL 10 MG TABLET PO SCH (08:38)
[2018-03-24] MEDS: CYANOCOBALAMIN 500 MCG TABLET PO SCH (08:38)
[2018-03-24] MEDS: ASPIRIN EC 81 MG TABLET PO SCH (08:38)
[2018-03-24] MEDS: IRON (CARBONYL)/VIT C/B12/FA TABLET PO SCH (08:38)
[2018-03-24] MEDS: ALLOPURINOL 100 MG TABLET PO SCH (08:39)
[2018-03-24] MEDS: DOXAZOSIN 1 MG TABLET PO SCH (08:39)
[2018-03-24] MEDS: FUROSEMIDE 80 MG TABLET PO SCH ×2 (08:39→16:13)
[2018-03-24] MEDS: DOCUSATE SODIUM 100 MG CAPSULE PO SCH ×2 (08:39→20:23)
[2018-03-24] MEDS: RIVAROXABAN 20 MG TABLET PO SCH (08:39)
[2018-03-24] MEDS: CHOLECALCIFEROL 1,000 UNIT TABLET PO SCH (08:39)
[2018-03-24] MEDS: POLYETHYLENE GLYCOL POWDER 17 GM PACK PO SCH (08:39)
[2018-03-24] MEDS: FLUTICASONE/SALMETEROL 500-50 DISKUS 14 DOSE INH SCH ×2 (08:42→20:23)
[2018-03-24] MEDS: LATANOPROST 0.005% OPH SOLN 2.5 ML BOTTLE BOTH EYES SCH (08:42)
[2018-03-24] MEDS: INSULIN NPH/REGULAR 70/30 100 UNIT/ML SUBCUT SCH ×2 (08:46→16:13)
[2018-03-24] MEDS: INSULIN REGULAR 100 UNIT/ML SUBCUT SCH ×4 (08:46→20:23)
[2018-03-24] MEDS: BACITRACIN OINT 28.35 GM TUBE TOP SCH (12:55)
[2018-03-24] MEDS: PANTOPRAZOLE 40 MG TABLET PO SCH ×2 (13:33→20:23)
[2018-03-24] MEDS: ALUMINUM/MAGNES/SIMETH MAX STR 30 ML UDCUP PO PRN ×3 (13:33→20:22)
[2018-03-24] MEDS: MONTELUKAST 10 MG TABLET PO SCH (20:23)
[2018-03-25 04:02] LABS: Basophils % 0.4 % (0.0-0.8); Eosinophils # 0.1 10*3/uL (0.0-0.87); Eosinophils % 1.3 % (0.00-10.9); Hematocrit 25.7 VOL% (35.7-47.0); Hemoglobin 7.9 GM/DL (12.0-16.0); Immature Granulocytes % 0.6 %; Immature Granulocytes Absolute 0.06 #; Lymphocytes # 3.1 10*3/uL (1.4-4.0); Lymphocytes % 30.6 % (21.3-54.2); Mean Corpuscular HGB Conc 30.7 GM/DL (32-36); Mean Corpuscular Hemoglobin 29 PG (27-34); Mean Corpuscular Volume 95.2 FL (87-102); Mean Platelet Volume 11.5 FL (9.6-12.0); Monocytes % 9.6 % (1.7-12.7); Neutrophils # 5.9 10*3/uL (1.4-7.4); Neutrophils % 57.5 % (38.7-73.9); Platelet Count 231 T/CUMM (130-400); Red Cell Distribution Width 18.2 % (9.3-17.3); White Blood Count 10.2 T/CUMM (4-12)
[2018-03-25 04:34] LABS: Calcium 8.8 MG/DL (8.5-10.1); Osmolality,Calculated 295.4 MOS/KG (273-304); Potassium 4.2 MMOL/L (3.5-5.1)
[2018-03-25] MEDS: LEVOTHYROXINE 50 MCG TABLET PO SCH (05:40)
[2018-03-25] MEDS: CLINDAMYCIN 300 MG CAPSULE PO SCH ×3 (05:40→17:17)
[2018-03-25] MEDS: ALUMINUM/MAGNES/SIMETH MAX STR 30 ML UDCUP PO PRN ×2 (05:41→13:03)
[2018-03-25] MEDS: FLUTICASONE/SALMETEROL 500-50 DISKUS 14 DOSE INH SCH ×2 (08:20→22:06)
[2018-03-25] MEDS: LATANOPROST 0.005% OPH SOLN 2.5 ML BOTTLE BOTH EYES SCH (08:20)
[2018-03-25] MEDS: FUROSEMIDE 80 MG TABLET PO SCH ×2 (08:20→15:36)
[2018-03-25] MEDS: VERAPAMIL 120 MG TABLET PO SCH (08:21)
[2018-03-25] MEDS: DOXAZOSIN 1 MG TABLET PO SCH (08:21)
[2018-03-25] MEDS: CHOLECALCIFEROL 1,000 UNIT TABLET PO SCH (08:21)
[2018-03-25] MEDS: RIVAROXABAN 20 MG TABLET PO SCH (08:22)
[2018-03-25] MEDS: ASPIRIN EC 81 MG TABLET PO SCH (08:22)
[2018-03-25] MEDS: NEBIVOLOL 10 MG TABLET PO SCH (08:22)
[2018-03-25] MEDS: ALLOPURINOL 100 MG TABLET PO SCH (08:22)
[2018-03-25] MEDS: CYANOCOBALAMIN 500 MCG TABLET PO SCH (08:22)
[2018-03-25] MEDS: IRON (CARBONYL)/VIT C/B12/FA TABLET PO SCH (08:22)
[2018-03-25] MEDS: POLYETHYLENE GLYCOL POWDER 17 GM PACK PO SCH (08:24)
[2018-03-25] MEDS: INSULIN REGULAR 100 UNIT/ML SUBCUT SCH ×3 (08:24→16:48)
[2018-03-25] MEDS: PANTOPRAZOLE 40 MG TABLET PO SCH ×2 (08:24→22:06)
[2018-03-25] MEDS: DOCUSATE SODIUM 100 MG CAPSULE PO SCH ×2 (08:25→22:06)
[2018-03-25] MEDS: INSULIN NPH/REGULAR 70/30 100 UNIT/ML SUBCUT SCH ×2 (08:34→17:07)
[2018-03-25] MEDS: BACITRACIN OINT 28.35 GM TUBE TOP SCH (10:46)
[2018-03-25] MEDS: ACETAMINOPHEN 325 MG TABLET PO PRN (13:01)
[2018-03-25] MEDS: MONTELUKAST 10 MG TABLET PO SCH (22:06)
[2018-03-26] MEDS: CLINDAMYCIN 300 MG CAPSULE PO SCH ×4 (01:15→17:16)
[2018-03-26] MEDS: INSULIN REGULAR 100 UNIT/ML SUBCUT SCH ×5 (03:46→21:08)
[2018-03-26 04:19] LABS: Basophils % 0.4 % (0.0-0.8); Eosinophils # 0.2 10*3/uL (0.0-0.87); Eosinophils % 1.9 % (0.00-10.9); Hematocrit 25.8 VOL% (35.7-47.0); Hemoglobin 8.3 GM/DL (12.0-16.0); Immature Granulocytes % 0.4 %; Immature Granulocytes Absolute 0.04 #; Lymphocytes # 3.4 10*3/uL (1.4-4.0); Lymphocytes % 34.6 % (21.3-54.2); Mean Corpuscular HGB Conc 32.2 GM/DL (32-36); Mean Corpuscular Hemoglobin 31 PG (27-34); Mean Corpuscular Volume 94.9 FL (87-102); Monocytes % 9.9 % (1.7-12.7); Neutrophils # 5.1 10*3/uL (1.4-7.4); Neutrophils % 52.8 % (38.7-73.9); Platelet Count 213 T/CUMM (130-400); Red Blood Count 2.72 MC/CUMM (3.8-5.5); Red Cell Distribution Width 18.3 % (9.3-17.3); White Blood Count 9.7 T/CUMM (4-12)
[2018-03-26 04:33] LABS: Calcium 8.5 MG/DL (8.5-10.1); Osmolality,Calculated 289.7 MOS/KG (273-304); Potassium 4.5 MMOL/L (3.5-5.1)
[2018-03-26] MEDS: LEVOTHYROXINE 50 MCG TABLET PO SCH (06:24)
[2018-03-26] MEDS: CYANOCOBALAMIN 500 MCG TABLET PO SCH (09:37)
[2018-03-26] MEDS: VERAPAMIL 120 MG TABLET PO SCH (09:37)
[2018-03-26] MEDS: INSULIN NPH/REGULAR 70/30 100 UNIT/ML SUBCUT SCH ×2 (09:37→16:12)
[2018-03-26] MEDS: NEBIVOLOL 10 MG TABLET PO SCH (09:37)
[2018-03-26] MEDS: DOXAZOSIN 1 MG TABLET PO SCH (09:37)
[2018-03-26] MEDS: POLYETHYLENE GLYCOL POWDER 17 GM PACK PO SCH (09:38)
[2018-03-26] MEDS: RIVAROXABAN 20 MG TABLET PO SCH (09:38)
[2018-03-26] MEDS: PANTOPRAZOLE 40 MG TABLET PO SCH ×2 (09:38→21:08)
[2018-03-26] MEDS: DOCUSATE SODIUM 100 MG CAPSULE PO SCH ×2 (09:38→21:12)
[2018-03-26] MEDS: ALLOPURINOL 100 MG TABLET PO SCH (09:38)
[2018-03-26] MEDS: FUROSEMIDE 80 MG TABLET PO SCH ×2 (09:38→16:12)
[2018-03-26] MEDS: ASPIRIN EC 81 MG TABLET PO SCH (09:38)
[2018-03-26] MEDS: IRON (CARBONYL)/VIT C/B12/FA TABLET PO SCH (09:38)
[2018-03-26] MEDS: CHOLECALCIFEROL 1,000 UNIT TABLET PO SCH (09:38)
[2018-03-26] MEDS: FLUTICASONE/SALMETEROL 500-50 DISKUS 14 DOSE INH SCH ×2 (09:39→21:07)
[2018-03-26] MEDS: LATANOPROST 0.005% OPH SOLN 2.5 ML BOTTLE BOTH EYES SCH (09:39)
[2018-03-26] MEDS: BACITRACIN OINT 28.35 GM TUBE TOP SCH (09:47)
[2018-03-26] MEDS: MONTELUKAST 10 MG TABLET PO SCH (21:08)
[2018-03-27] MEDS: CLINDAMYCIN 300 MG CAPSULE PO SCH ×4 (00:37→17:44)
[2018-03-27 03:30] LABS: Basophils % 0.4 % (0.0-0.8); Eosinophils # 0.2 10*3/uL (0.0-0.87); Eosinophils % 2.5 % (0.00-10.9); Hematocrit 27.1 VOL% (35.7-47.0); Hemoglobin 8.4 GM/DL (12.0-16.0); Immature Granulocytes % 0.4 %; Immature Granulocytes Absolute 0.04 #; Lymphocytes % 31.4 % (21.3-54.2); Mean Corpuscular Hemoglobin 30 PG (27-34); Mean Corpuscular Volume 95.8 FL (87-102); Mean Platelet Volume 11.3 FL (9.6-12.0); Monocytes # 0.9 10*3/uL (0.11-0.8); Monocytes % 9.2 % (1.7-12.7); Neutrophils # 5.4 10*3/uL (1.4-7.4); Neutrophils % 56.1 % (38.7-73.9); Platelet Count 232 T/CUMM (130-400); Red Blood Count 2.83 MC/CUMM (3.8-5.5); Red Cell Distribution Width 18.1 % (9.3-17.3); White Blood Count 9.6 T/CUMM (4-12)
[2018-03-27 03:51] LABS: Osmolality,Calculated 289.7 MOS/KG (273-304); Potassium 4.8 MMOL/L (3.5-5.1)
[2018-03-27] MEDS: LEVOTHYROXINE 50 MCG TABLET PO SCH (05:52)
[2018-03-27] MEDS: INSULIN REGULAR 100 UNIT/ML SUBCUT SCH ×4 (09:04→20:44)
[2018-03-27] MEDS: CHOLECALCIFEROL 1,000 UNIT TABLET PO SCH (10:23)
[2018-03-27] MEDS: RIVAROXABAN 20 MG TABLET PO SCH (10:23)
[2018-03-27] MEDS: CYANOCOBALAMIN 500 MCG TABLET PO SCH (10:23)
[2018-03-27] MEDS: ASPIRIN EC 81 MG TABLET PO SCH (10:23)
[2018-03-27] MEDS: DOXAZOSIN 1 MG TABLET PO SCH (10:23)
[2018-03-27] MEDS: FUROSEMIDE 80 MG TABLET PO SCH ×2 (10:24→17:44)
[2018-03-27] MEDS: NEBIVOLOL 10 MG TABLET PO SCH (10:24)
[2018-03-27] MEDS: metOLazone 5 MG TABLET PO SCH (10:24)
[2018-03-27] MEDS: VERAPAMIL 120 MG TABLET PO SCH (10:24)
[2018-03-27] MEDS: ALLOPURINOL 100 MG TABLET PO SCH (10:24)
[2018-03-27] MEDS: IRON (CARBONYL)/VIT C/B12/FA TABLET PO SCH (10:25)
[2018-03-27] MEDS: INSULIN NPH/REGULAR 70/30 100 UNIT/ML SUBCUT SCH ×2 (10:25→17:44)
[2018-03-27] MEDS: FLUTICASONE/SALMETEROL 500-50 DISKUS 14 DOSE INH SCH ×2 (10:25→20:43)
[2018-03-27] MEDS: PANTOPRAZOLE 40 MG TABLET PO SCH ×2 (10:25→20:43)
[2018-03-27] MEDS: BACITRACIN OINT 28.35 GM TUBE TOP SCH (10:26)
[2018-03-27] MEDS: POLYETHYLENE GLYCOL POWDER 17 GM PACK PO SCH (10:26)
[2018-03-27] MEDS: DOCUSATE SODIUM 100 MG CAPSULE PO SCH ×2 (10:26→20:44)
[2018-03-27] MEDS: LATANOPROST 0.005% OPH SOLN 2.5 ML BOTTLE BOTH EYES SCH (10:29)
[2018-03-27] MEDS ORDERED: FUROSEMIDE 40 MG/4 ML VIAL IV ONE (13:00)
[2018-03-27] MEDS: ACETAMINOPHEN 325 MG TABLET PO PRN (16:01)
[2018-03-27] MEDS: MONTELUKAST 10 MG TABLET PO SCH (20:43)
[2018-03-28] MEDS: CLINDAMYCIN 300 MG CAPSULE PO SCH ×4 (01:01→18:35)
[2018-03-28 05:27] LABS: Osmolality,Calculated 292.8 MOS/KG (273-304); Potassium 4.8 MMOL/L (3.5-5.1)
[2018-03-28] MEDS: LEVOTHYROXINE 50 MCG TABLET PO SCH (06:00)
[2018-03-28] MEDS: LATANOPROST 0.005% OPH SOLN 2.5 ML BOTTLE BOTH EYES SCH (08:06)
[2018-03-28] MEDS: INSULIN NPH/REGULAR 70/30 100 UNIT/ML SUBCUT SCH ×2 (08:06→16:37)
[2018-03-28] MEDS: FLUTICASONE/SALMETEROL 500-50 DISKUS 14 DOSE INH SCH ×2 (08:06→20:32)
[2018-03-28] MEDS: NEBIVOLOL 10 MG TABLET PO SCH (08:06)
[2018-03-28] MEDS: IRON (CARBONYL)/VIT C/B12/FA TABLET PO SCH (08:06)
[2018-03-28] MEDS: CYANOCOBALAMIN 500 MCG TABLET PO SCH (08:06)
[2018-03-28] MEDS: CHOLECALCIFEROL 1,000 UNIT TABLET PO SCH (08:06)
[2018-03-28] MEDS: metOLazone 5 MG TABLET PO SCH (08:07)
[2018-03-28] MEDS: VERAPAMIL 120 MG TABLET PO SCH (08:07)
[2018-03-28] MEDS: PANTOPRAZOLE 40 MG TABLET PO SCH ×2 (08:07→20:32)
[2018-03-28] MEDS: ASPIRIN EC 81 MG TABLET PO SCH (08:07)
[2018-03-28] MEDS: RIVAROXABAN 20 MG TABLET PO SCH (08:07)
[2018-03-28] MEDS: DOXAZOSIN 1 MG TABLET PO SCH (08:07)
[2018-03-28] MEDS: INSULIN REGULAR 100 UNIT/ML SUBCUT SCH ×4 (08:07→20:31)
[2018-03-28] MEDS: ALLOPURINOL 100 MG TABLET PO SCH (08:07)
[2018-03-28] MEDS: POLYETHYLENE GLYCOL POWDER 17 GM PACK PO SCH (08:08)
[2018-03-28] MEDS: DOCUSATE SODIUM 100 MG CAPSULE PO SCH ×2 (08:08→20:32)
[2018-03-28] MEDS: FUROSEMIDE 100 MG/10 ML VIAL IV SCH ×2 (08:14→16:37)
[2018-03-28] MEDS: BACITRACIN OINT 28.35 GM TUBE TOP SCH (14:40)
[2018-03-28 14:58] LABS: Collection Time,Urine 24 HOURS; Total Protein 24 Hr Ur Result 1312 MG/24HR (0-149.1); Total Volume,Urine 1750 ML (400-2000)
[2018-03-28] MEDS ORDERED: COLCHICINE 0.6 MG TABLET PO ONE (17:40)
[2018-03-28] MEDS: MONTELUKAST 10 MG TABLET PO SCH (20:31)
[2018-03-29] MEDS: CLINDAMYCIN 300 MG CAPSULE PO SCH ×4 (01:02→17:25)
[2018-03-29 05:34] LABS: Basophils # 0.1 10*3/uL (0.0-0.2); Basophils % 0.6 % (0.0-0.8); Eosinophils # 0.2 10*3/uL (0.0-0.87); Eosinophils % 2.2 % (0.00-10.9); Hematocrit 26.6 VOL% (35.7-47.0); Hemoglobin 8.1 GM/DL (12.0-16.0); Immature Granulocytes % 0.5 %; Immature Granulocytes Absolute 0.04 #; Lymphocytes # 3.2 10*3/uL (1.4-4.0); Lymphocytes % 38.3 % (21.3-54.2); Mean Corpuscular HGB Conc 30.5 GM/DL (32-36); Mean Corpuscular Hemoglobin 29 PG (27-34); Mean Platelet Volume 12.3 FL (9.6-12.0); Monocytes # 0.9 10*3/uL (0.11-0.8); Neutrophils % 47.4 % (38.7-73.9); Platelet Count 215 T/CUMM (130-400); White Blood Count 8.3 T/CUMM (4-12)
[2018-03-29] MEDS: LEVOTHYROXINE 50 MCG TABLET PO SCH (05:41)
[2018-03-29] MEDS: ACETAMINOPHEN 325 MG TABLET PO PRN (05:41)
[2018-03-29 05:54] LABS: Potassium 4.7 MMOL/L (3.5-5.1)
[2018-03-29] MEDS: INSULIN REGULAR 100 UNIT/ML SUBCUT SCH ×4 (07:48→21:04)
[2018-03-29] MEDS: CHOLECALCIFEROL 1,000 UNIT TABLET PO SCH (09:20)
[2018-03-29] MEDS: DOXAZOSIN 1 MG TABLET PO SCH (09:21)
[2018-03-29] MEDS: IRON (CARBONYL)/VIT C/B12/FA TABLET PO SCH (09:21)
[2018-03-29] MEDS: CYANOCOBALAMIN 500 MCG TABLET PO SCH (09:21)
[2018-03-29] MEDS: DOCUSATE SODIUM 100 MG CAPSULE PO SCH ×2 (09:21→21:01)
[2018-03-29] MEDS: PANTOPRAZOLE 40 MG TABLET PO SCH ×2 (09:21→21:01)
[2018-03-29] MEDS: NEBIVOLOL 10 MG TABLET PO SCH (09:21)
[2018-03-29] MEDS: POLYETHYLENE GLYCOL POWDER 17 GM PACK PO SCH (09:21)
[2018-03-29] MEDS: FUROSEMIDE 100 MG/10 ML VIAL IV SCH ×2 (09:22→15:50)
[2018-03-29] MEDS: VERAPAMIL 120 MG TABLET PO SCH (09:22)
[2018-03-29] MEDS: ASPIRIN EC 81 MG TABLET PO SCH (09:22)
[2018-03-29] MEDS: ALLOPURINOL 100 MG TABLET PO SCH (09:22)
[2018-03-29] MEDS: RIVAROXABAN 20 MG TABLET PO SCH (09:22)
[2018-03-29] MEDS: INSULIN NPH/REGULAR 70/30 100 UNIT/ML SUBCUT SCH ×2 (09:22→16:04)
[2018-03-29] MEDS: metOLazone 5 MG TABLET PO SCH (09:22)
[2018-03-29] MEDS: FLUTICASONE/SALMETEROL 500-50 DISKUS 14 DOSE INH SCH ×2 (09:23→21:02)
[2018-03-29] MEDS: LATANOPROST 0.005% OPH SOLN 2.5 ML BOTTLE BOTH EYES SCH (09:23)
[2018-03-29] MEDS: BACITRACIN OINT 28.35 GM TUBE TOP SCH (09:23)
[2018-03-29] MEDS: predniSONE 10 MG TABLET PO SCH (15:51)
[2018-03-29] MEDS: MONTELUKAST 10 MG TABLET PO SCH (21:01)
[2018-03-30] MEDS: CLINDAMYCIN 300 MG CAPSULE PO SCH ×4 (00:06→17:09)
[2018-03-30] MEDS: ACETAMINOPHEN 325 MG TABLET PO PRN (02:41)
[2018-03-30 05:26] LABS: Calcium 9.2 MG/DL (8.5-10.1); Potassium 4.5 MMOL/L (3.5-5.1)
[2018-03-30] MEDS: LEVOTHYROXINE 50 MCG TABLET PO SCH (06:04)
[2018-03-30] MEDS: INSULIN REGULAR 100 UNIT/ML SUBCUT SCH ×4 (09:11→21:22)
[2018-03-30] MEDS: INSULIN NPH/REGULAR 70/30 100 UNIT/ML SUBCUT SCH ×2 (09:11→16:28)
[2018-03-30] MEDS: FUROSEMIDE 100 MG/10 ML VIAL IV SCH ×2 (09:11→16:29)
[2018-03-30] MEDS: metOLazone 5 MG TABLET PO SCH (09:12)
[2018-03-30] MEDS: DOXAZOSIN 1 MG TABLET PO SCH (09:12)
[2018-03-30] MEDS: CYANOCOBALAMIN 500 MCG TABLET PO SCH (09:12)
[2018-03-30] MEDS: DOCUSATE SODIUM 100 MG CAPSULE PO SCH ×2 (09:12→21:22)
[2018-03-30] MEDS: PANTOPRAZOLE 40 MG TABLET PO SCH ×2 (09:12→21:21)
[2018-03-30] MEDS: CHOLECALCIFEROL 1,000 UNIT TABLET PO SCH (09:12)
[2018-03-30] MEDS: NEBIVOLOL 10 MG TABLET PO SCH (09:12)
[2018-03-30] MEDS: POLYETHYLENE GLYCOL POWDER 17 GM PACK PO SCH (09:13)
[2018-03-30] MEDS: RIVAROXABAN 20 MG TABLET PO SCH (09:13)
[2018-03-30] MEDS: predniSONE 10 MG TABLET PO SCH (09:13)
[2018-03-30] MEDS: FLUTICASONE/SALMETEROL 500-50 DISKUS 14 DOSE INH SCH ×2 (09:13→21:22)
[2018-03-30] MEDS: LATANOPROST 0.005% OPH SOLN 2.5 ML BOTTLE BOTH EYES SCH (09:13)
[2018-03-30] MEDS: IRON (CARBONYL)/VIT C/B12/FA TABLET PO SCH (09:13)
[2018-03-30] MEDS: VERAPAMIL 120 MG TABLET PO SCH (09:13)
[2018-03-30] MEDS: ASPIRIN EC 81 MG TABLET PO SCH (09:13)
[2018-03-30] MEDS: ALLOPURINOL 100 MG TABLET PO SCH (09:13)
[2018-03-30] MEDS: BACITRACIN OINT 28.35 GM TUBE TOP SCH (09:14)
[2018-03-30] MEDS ORDERED: COLCHICINE 0.6 MG TABLET PO ONE (11:53)
[2018-03-30] MEDS: MONTELUKAST 10 MG TABLET PO SCH (21:21)
[2018-03-31] MEDS: CLINDAMYCIN 300 MG CAPSULE PO SCH ×5 (00:53→23:39)
[2018-03-31] MEDS: ACETAMINOPHEN 325 MG TABLET PO PRN (00:53)
[2018-03-31 04:02] LABS: Calcium 9.1 MG/DL (8.5-10.1); Osmolality,Calculated 296.7 MOS/KG (273-304)
[2018-03-31] MEDS: LEVOTHYROXINE 50 MCG TABLET PO SCH (06:08)
[2018-03-31] MEDS: INSULIN REGULAR 100 UNIT/ML SUBCUT SCH ×4 (09:16→21:05)
[2018-03-31] MEDS: INSULIN NPH/REGULAR 70/30 100 UNIT/ML SUBCUT SCH ×2 (09:17→16:40)
[2018-03-31] MEDS: FUROSEMIDE 100 MG/10 ML VIAL IV SCH ×2 (09:17→16:40)
[2018-03-31] MEDS: metOLazone 5 MG TABLET PO SCH (09:18)
[2018-03-31] MEDS: DOCUSATE SODIUM 100 MG CAPSULE PO SCH ×2 (09:18→21:13)
[2018-03-31] MEDS: NEBIVOLOL 10 MG TABLET PO SCH (09:18)
[2018-03-31] MEDS: predniSONE 10 MG TABLET PO SCH (09:19)
[2018-03-31] MEDS: CHOLECALCIFEROL 1,000 UNIT TABLET PO SCH (09:19)
[2018-03-31] MEDS: IRON (CARBONYL)/VIT C/B12/FA TABLET PO SCH (09:19)
[2018-03-31] MEDS: ASPIRIN EC 81 MG TABLET PO SCH (09:19)
[2018-03-31] MEDS: CYANOCOBALAMIN 500 MCG TABLET PO SCH (09:19)
[2018-03-31] MEDS: DOXAZOSIN 1 MG TABLET PO SCH (09:19)
[2018-03-31] MEDS: PANTOPRAZOLE 40 MG TABLET PO SCH ×2 (09:19→21:05)
[2018-03-31] MEDS: ALLOPURINOL 100 MG TABLET PO SCH (09:19)
[2018-03-31] MEDS: RIVAROXABAN 20 MG TABLET PO SCH (09:19)
[2018-03-31] MEDS: POLYETHYLENE GLYCOL POWDER 17 GM PACK PO SCH (09:20)
[2018-03-31] MEDS: FLUTICASONE/SALMETEROL 500-50 DISKUS 14 DOSE INH SCH ×2 (09:20→21:13)
[2018-03-31] MEDS: BACITRACIN OINT 28.35 GM TUBE TOP SCH (09:20)
[2018-03-31] MEDS: LATANOPROST 0.005% OPH SOLN 2.5 ML BOTTLE BOTH EYES SCH (09:20)
[2018-03-31] MEDS: VERAPAMIL 120 MG TABLET PO SCH (09:23)
[2018-03-31] MEDS: MONTELUKAST 10 MG TABLET PO SCH (21:05)
[2018-04-01] MEDS: ACETAMINOPHEN 325 MG TABLET PO PRN (01:16)
[2018-04-01] MEDS: CLINDAMYCIN 300 MG CAPSULE PO SCH ×3 (05:40→18:28)
[2018-04-01] MEDS: LEVOTHYROXINE 50 MCG TABLET PO SCH (05:40)
[2018-04-01 06:10] LABS: Basophils # 0.1 10*3/uL (0.0-0.2); Basophils % 0.5 % (0.0-0.8); Eosinophils # 0.1 10*3/uL (0.0-0.87); Eosinophils % 1.2 % (0.00-10.9); Hematocrit 26.9 VOL% (35.7-47.0); Hemoglobin 8.4 GM/DL (12.0-16.0); Immature Granulocytes % 0.5 %; Immature Granulocytes Absolute 0.05 #; Lymphocytes # 3.3 10*3/uL (1.4-4.0); Lymphocytes % 30.3 % (21.3-54.2); Mean Corpuscular HGB Conc 31.2 GM/DL (32-36); Mean Corpuscular Hemoglobin 30 PG (27-34); Mean Corpuscular Volume 95.1 FL (87-102); Monocytes # 1.1 10*3/uL (0.11-0.8); Monocytes % 10.6 % (1.7-12.7); Neutrophils # 6.1 10*3/uL (1.4-7.4); Neutrophils % 56.9 % (38.7-73.9); Platelet Count 240 T/CUMM (130-400); Red Blood Count 2.83 MC/CUMM (3.8-5.5); Red Cell Distribution Width 17.5 % (9.3-17.3); White Blood Count 10.7 T/CUMM (4-12)
[2018-04-01 06:26] LABS: Calcium 9.4 MG/DL (8.5-10.1); Osmolality,Calculated 291.8 MOS/KG (273-304); Potassium 3.9 MMOL/L (3.5-5.1)
[2018-04-01] MEDS: INSULIN NPH/REGULAR 70/30 100 UNIT/ML SUBCUT SCH ×2 (09:19→17:44)
[2018-04-01] MEDS: ASPIRIN EC 81 MG TABLET PO SCH (09:20)
[2018-04-01] MEDS: COLCHICINE 0.6 MG TABLET PO SCH (09:20)
[2018-04-01] MEDS: INSULIN REGULAR 100 UNIT/ML SUBCUT SCH ×4 (09:20→20:34)
[2018-04-01] MEDS: VERAPAMIL 120 MG TABLET PO SCH (09:20)
[2018-04-01] MEDS: CHOLECALCIFEROL 1,000 UNIT TABLET PO SCH (09:20)
[2018-04-01] MEDS: DOCUSATE SODIUM 100 MG CAPSULE PO SCH ×2 (09:21→20:34)
[2018-04-01] MEDS: IRON (CARBONYL)/VIT C/B12/FA TABLET PO SCH (09:21)
[2018-04-01] MEDS: CYANOCOBALAMIN 500 MCG TABLET PO SCH (09:21)
[2018-04-01] MEDS: ALLOPURINOL 100 MG TABLET PO SCH (09:21)
[2018-04-01] MEDS: DOXAZOSIN 1 MG TABLET PO SCH (09:21)
[2018-04-01] MEDS: PANTOPRAZOLE 40 MG TABLET PO SCH ×2 (09:21→20:34)
[2018-04-01] MEDS: NEBIVOLOL 10 MG TABLET PO SCH (09:21)
[2018-04-01] MEDS: predniSONE 10 MG TABLET PO SCH (09:21)
[2018-04-01] MEDS: FUROSEMIDE 100 MG/10 ML VIAL IV SCH ×2 (09:21→16:12)
[2018-04-01] MEDS: RIVAROXABAN 20 MG TABLET PO SCH (09:21)
[2018-04-01] MEDS: metOLazone 5 MG TABLET PO SCH (09:21)
[2018-04-01] MEDS: FLUTICASONE/SALMETEROL 500-50 DISKUS 14 DOSE INH SCH ×2 (09:22→20:34)
[2018-04-01] MEDS: BACITRACIN OINT 28.35 GM TUBE TOP SCH (09:22)
[2018-04-01] MEDS: LATANOPROST 0.005% OPH SOLN 2.5 ML BOTTLE BOTH EYES SCH (09:23)
[2018-04-01] MEDS: POLYETHYLENE GLYCOL POWDER 17 GM PACK PO SCH (09:23)
[2018-04-01] MEDS: MONTELUKAST 10 MG TABLET PO SCH (20:34)
[2018-04-02] MEDS: CLINDAMYCIN 300 MG CAPSULE PO SCH ×5 (00:10→23:35)
[2018-04-02 05:32] LABS: Calcium 8.7 MG/DL (8.5-10.1); Osmolality,Calculated 289.1 MOS/KG (273-304); Potassium 4.5 MMOL/L (3.5-5.1)
[2018-04-02] MEDS: LEVOTHYROXINE 50 MCG TABLET PO SCH (06:04)
[2018-04-02] MEDS: INSULIN REGULAR 100 UNIT/ML SUBCUT SCH ×4 (07:39→21:12)
[2018-04-02] MEDS ORDERED: FUROSEMIDE 80 MG TABLET PO SCH (08:00)
[2018-04-02] MEDS: COLCHICINE 0.6 MG TABLET PO SCH (08:54)
[2018-04-02] MEDS: ASPIRIN EC 81 MG TABLET PO SCH (08:54)
[2018-04-02] MEDS: ALLOPURINOL 100 MG TABLET PO SCH (08:54)
[2018-04-02] MEDS: RIVAROXABAN 20 MG TABLET PO SCH (08:54)
[2018-04-02] MEDS: CYANOCOBALAMIN 500 MCG TABLET PO SCH (08:55)
[2018-04-02] MEDS: predniSONE 10 MG TABLET PO SCH (08:55)
[2018-04-02] MEDS: FUROSEMIDE 80 MG TABLET PO SCH ×2 (08:55→17:18)
[2018-04-02] MEDS: PANTOPRAZOLE 40 MG TABLET PO SCH ×2 (08:55→21:11)
[2018-04-02] MEDS: CHOLECALCIFEROL 1,000 UNIT TABLET PO SCH (08:55)
[2018-04-02] MEDS: DOCUSATE SODIUM 100 MG CAPSULE PO SCH ×2 (08:55→21:11)
[2018-04-02] MEDS: IRON (CARBONYL)/VIT C/B12/FA TABLET PO SCH (08:55)
[2018-04-02] MEDS: metOLazone 5 MG TABLET PO SCH ×2 (08:56→09:00)
[2018-04-02] MEDS: INSULIN NPH/REGULAR 70/30 100 UNIT/ML SUBCUT SCH ×2 (08:56→17:18)
[2018-04-02] MEDS: NEBIVOLOL 10 MG TABLET PO SCH (08:56)
[2018-04-02] MEDS: POLYETHYLENE GLYCOL POWDER 17 GM PACK PO SCH (08:56)
[2018-04-02] MEDS: FLUTICASONE/SALMETEROL 500-50 DISKUS 14 DOSE INH SCH ×2 (08:57→21:16)
[2018-04-02] MEDS: LATANOPROST 0.005% OPH SOLN 2.5 ML BOTTLE BOTH EYES SCH (08:58)
[2018-04-02] MEDS: VERAPAMIL 120 MG TABLET PO SCH (09:00)
[2018-04-02] MEDS: DOXAZOSIN 1 MG TABLET PO SCH (09:00)
[2018-04-02] MEDS: BACITRACIN OINT 28.35 GM TUBE TOP SCH (17:16)
[2018-04-02] MEDS: MONTELUKAST 10 MG TABLET PO SCH (21:11)
[2018-04-03 05:18] LABS: Basophils % 0.4 % (0.0-0.8); Eosinophils # 0.1 10*3/uL (0.0-0.87); Eosinophils % 1.2 % (0.00-10.9); Hematocrit 28.7 VOL% (35.7-47.0); Immature Granulocytes % 0.6 %; Immature Granulocytes Absolute 0.06 #; Lymphocytes # 3.3 10*3/uL (1.4-4.0); Lymphocytes % 31.9 % (21.3-54.2); Mean Corpuscular HGB Conc 31.4 GM/DL (32-36); Mean Corpuscular Hemoglobin 30 PG (27-34); Mean Corpuscular Volume 94.7 FL (87-102); Mean Platelet Volume 11.2 FL (9.6-12.0); Monocytes # 1.2 10*3/uL (0.11-0.8); Monocytes % 11.2 % (1.7-12.7); Neutrophils # 5.6 10*3/uL (1.4-7.4); Neutrophils % 54.7 % (38.7-73.9); Platelet Count 265 T/CUMM (130-400); Red Blood Count 3.03 MC/CUMM (3.8-5.5); Red Cell Distribution Width 17.4 % (9.3-17.3); White Blood Count 10.2 T/CUMM (4-12)
[2018-04-03 05:32] LABS: Calcium 9.2 MG/DL (8.5-10.1); Osmolality,Calculated 295.5 MOS/KG (273-304); Potassium 3.6 MMOL/L (3.5-5.1)
[2018-04-03] MEDS: CLINDAMYCIN 300 MG CAPSULE PO SCH ×3 (06:05→17:05)
[2018-04-03] MEDS: LEVOTHYROXINE 50 MCG TABLET PO SCH (06:05)
[2018-04-03] MEDS: FUROSEMIDE 80 MG TABLET PO SCH ×2 (09:34→16:20)
[2018-04-03] MEDS: INSULIN NPH/REGULAR 70/30 100 UNIT/ML SUBCUT SCH ×2 (09:34→16:19)
[2018-04-03] MEDS: VERAPAMIL 120 MG TABLET PO SCH (09:35)
[2018-04-03] MEDS: DOXAZOSIN 1 MG TABLET PO SCH (09:35)
[2018-04-03] MEDS: predniSONE 10 MG TABLET PO SCH (09:35)
[2018-04-03] MEDS: IRON (CARBONYL)/VIT C/B12/FA TABLET PO SCH (09:35)
[2018-04-03] MEDS: metOLazone 5 MG TABLET PO SCH (09:36)
[2018-04-03] MEDS: ALLOPURINOL 100 MG TABLET PO SCH (09:36)
[2018-04-03] MEDS: ASPIRIN EC 81 MG TABLET PO SCH (09:36)
[2018-04-03] MEDS: PANTOPRAZOLE 40 MG TABLET PO SCH ×2 (09:36→21:20)
[2018-04-03] MEDS: POLYETHYLENE GLYCOL POWDER 17 GM PACK PO SCH (09:36)
[2018-04-03] MEDS: LATANOPROST 0.005% OPH SOLN 2.5 ML BOTTLE BOTH EYES SCH (09:36)
[2018-04-03] MEDS: RIVAROXABAN 20 MG TABLET PO SCH (09:36)
[2018-04-03] MEDS: COLCHICINE 0.6 MG TABLET PO SCH (09:36)
[2018-04-03] MEDS: CHOLECALCIFEROL 1,000 UNIT TABLET PO SCH (09:36)
[2018-04-03] MEDS: CYANOCOBALAMIN 500 MCG TABLET PO SCH (09:36)
[2018-04-03] MEDS: NEBIVOLOL 10 MG TABLET PO SCH (09:36)
[2018-04-03] MEDS: BACITRACIN OINT 28.35 GM TUBE TOP SCH (09:37)
[2018-04-03] MEDS: INSULIN REGULAR 100 UNIT/ML SUBCUT SCH ×4 (09:37→21:20)
[2018-04-03] MEDS: FLUTICASONE/SALMETEROL 500-50 DISKUS 14 DOSE INH SCH ×2 (09:37→21:42)
[2018-04-03] MEDS: DOCUSATE SODIUM 100 MG CAPSULE PO SCH ×2 (09:38→21:42)
[2018-04-03] MEDS ORDERED: NEBIVOLOL 10 MG TABLET PO ONE (12:00)
[2018-04-03] MEDS: MONTELUKAST 10 MG TABLET PO SCH (21:20)
[2018-04-04] MEDS: CLINDAMYCIN 300 MG CAPSULE PO SCH ×3 (00:19→12:54)
[2018-04-04] MEDS: LEVOTHYROXINE 50 MCG TABLET PO SCH (06:00)
[2018-04-04 06:44] LABS: Basophils % 0.3 % (0.0-0.8); Eosinophils # 0.2 10*3/uL (0.0-0.87); Eosinophils % 1.6 % (0.00-10.9); Hematocrit 31.3 VOL% (35.7-47.0); Hemoglobin 9.6 GM/DL (12.0-16.0); Immature Granulocytes % 0.5 %; Immature Granulocytes Absolute 0.05 #; Lymphocytes # 2.8 10*3/uL (1.4-4.0); Lymphocytes % 27.9 % (21.3-54.2); Mean Corpuscular HGB Conc 30.7 GM/DL (32-36); Mean Corpuscular Hemoglobin 29 PG (27-34); Mean Corpuscular Volume 95.7 FL (87-102); Mean Platelet Volume 11.5 FL (9.6-12.0); Monocytes # 1.1 10*3/uL (0.11-0.8); Monocytes % 11.4 % (1.7-12.7); Neutrophils # 5.8 10*3/uL (1.4-7.4); Neutrophils % 58.3 % (38.7-73.9); Platelet Count 271 T/CUMM (130-400); Red Blood Count 3.27 MC/CUMM (3.8-5.5); Red Cell Distribution Width 17.2 % (9.3-17.3)
[2018-04-04 07:12] LABS: Osmolality,Calculated 295.3 MOS/KG (273-304); Potassium 3.3 MMOL/L (3.5-5.1)
[2018-04-04] MEDS: INSULIN REGULAR 100 UNIT/ML SUBCUT SCH ×4 (07:13→21:46)
[2018-04-04] MEDS: INSULIN NPH/REGULAR 70/30 100 UNIT/ML SUBCUT SCH ×2 (07:14→16:47)
[2018-04-04] MEDS: IRON (CARBONYL)/VIT C/B12/FA TABLET PO SCH (08:59)
[2018-04-04] MEDS: COLCHICINE 0.6 MG TABLET PO SCH (08:59)
[2018-04-04] MEDS: DOXAZOSIN 1 MG TABLET PO SCH (08:59)
[2018-04-04] MEDS: NEBIVOLOL 10 MG TABLET PO SCH (08:59)
[2018-04-04] MEDS: CYANOCOBALAMIN 500 MCG TABLET PO SCH (08:59)
[2018-04-04] MEDS: ALLOPURINOL 100 MG TABLET PO SCH (09:00)
[2018-04-04] MEDS: FUROSEMIDE 80 MG TABLET PO SCH ×2 (09:00→16:48)
[2018-04-04] MEDS: VERAPAMIL 120 MG TABLET PO SCH (09:00)
[2018-04-04] MEDS: PANTOPRAZOLE 40 MG TABLET PO SCH ×2 (09:00→21:46)
[2018-04-04] MEDS: metOLazone 5 MG TABLET PO SCH (09:00)
[2018-04-04] MEDS: CHOLECALCIFEROL 1,000 UNIT TABLET PO SCH (09:00)
[2018-04-04] MEDS: BACITRACIN OINT 28.35 GM TUBE TOP SCH (09:00)
[2018-04-04] MEDS: FLUTICASONE/SALMETEROL 500-50 DISKUS 14 DOSE INH SCH ×2 (09:01→21:46)
[2018-04-04] MEDS: POLYETHYLENE GLYCOL POWDER 17 GM PACK PO SCH (09:01)
[2018-04-04] MEDS: LATANOPROST 0.005% OPH SOLN 2.5 ML BOTTLE BOTH EYES SCH (09:01)
[2018-04-04] MEDS: RIVAROXABAN 20 MG TABLET PO SCH (09:01)
[2018-04-04] MEDS: DOCUSATE SODIUM 100 MG CAPSULE PO SCH ×2 (09:01→21:46)
[2018-04-04] MEDS: ASPIRIN EC 81 MG TABLET PO SCH (09:01)
[2018-04-04] MEDS ORDERED: POTASSIUM CHLORIDE 20 MEQ TABLET PO ONE (13:08)
[2018-04-04] MEDS: ACETAMINOPHEN 325 MG TABLET PO PRN (16:53)
[2018-04-04] MEDS: MONTELUKAST 10 MG TABLET PO SCH (21:45)
[2018-04-05 05:58] LABS: Calcium 9.4 MG/DL (8.5-10.1); Osmolality,Calculated 298.5 MOS/KG (273-304); Potassium 3.7 MMOL/L (3.5-5.1)
[2018-04-05] MEDS: LEVOTHYROXINE 50 MCG TABLET PO SCH (06:00)
[2018-04-05] MEDS: NEBIVOLOL 10 MG TABLET PO SCH (09:07)
[2018-04-05] MEDS: IRON (CARBONYL)/VIT C/B12/FA TABLET PO SCH (09:07)
[2018-04-05] MEDS: CYANOCOBALAMIN 500 MCG TABLET PO SCH (09:07)
[2018-04-05] MEDS: ASPIRIN EC 81 MG TABLET PO SCH (09:07)
[2018-04-05] MEDS: DOXAZOSIN 1 MG TABLET PO SCH (09:07)
[2018-04-05] MEDS: RIVAROXABAN 20 MG TABLET PO SCH (09:08)
[2018-04-05] MEDS: CHOLECALCIFEROL 1,000 UNIT TABLET PO SCH (09:08)
[2018-04-05] MEDS: ALLOPURINOL 100 MG TABLET PO SCH (09:08)
[2018-04-05] MEDS: metOLazone 5 MG TABLET PO SCH (09:08)
[2018-04-05] MEDS: VERAPAMIL 120 MG TABLET PO SCH (09:08)
[2018-04-05] MEDS: DOCUSATE SODIUM 100 MG CAPSULE PO SCH ×2 (09:08→21:17)
[2018-04-05] MEDS: FUROSEMIDE 80 MG TABLET PO SCH ×2 (09:08→15:54)
[2018-04-05] MEDS: INSULIN NPH/REGULAR 70/30 100 UNIT/ML SUBCUT SCH ×2 (09:09→17:02)
[2018-04-05] MEDS: INSULIN REGULAR 100 UNIT/ML SUBCUT SCH ×4 (09:09→20:17)
[2018-04-05] MEDS: FLUTICASONE/SALMETEROL 500-50 DISKUS 14 DOSE INH SCH ×2 (09:13→21:16)
[2018-04-05] MEDS: LATANOPROST 0.005% OPH SOLN 2.5 ML BOTTLE BOTH EYES SCH (09:14)
[2018-04-05] MEDS: POLYETHYLENE GLYCOL POWDER 17 GM PACK PO SCH (09:14)
[2018-04-05] MEDS: COLCHICINE 0.6 MG TABLET PO SCH (09:18)
[2018-04-05] MEDS: PANTOPRAZOLE 40 MG TABLET PO SCH ×2 (09:18→21:17)
[2018-04-05] MEDS: BACITRACIN OINT 28.35 GM TUBE TOP SCH (09:19)
[2018-04-05] MEDS: MONTELUKAST 10 MG TABLET PO SCH (21:17)
[2018-04-06] MEDS: LEVOTHYROXINE 50 MCG TABLET PO SCH (06:10)
[2018-04-06 06:32] LABS: Calcium 9.5 MG/DL (8.5-10.1); Osmolality,Calculated 301.3 MOS/KG (273-304); Potassium 3.4 MMOL/L (3.5-5.1)
[2018-04-06] MEDS: VERAPAMIL 120 MG TABLET PO SCH (09:25)
[2018-04-06] MEDS: DOCUSATE SODIUM 100 MG CAPSULE PO SCH ×2 (09:25→21:11)
[2018-04-06] MEDS: CYANOCOBALAMIN 500 MCG TABLET PO SCH (09:25)
[2018-04-06] MEDS: CHOLECALCIFEROL 1,000 UNIT TABLET PO SCH (09:26)
[2018-04-06] MEDS: IRON (CARBONYL)/VIT C/B12/FA TABLET PO SCH (09:26)
[2018-04-06] MEDS: ALLOPURINOL 100 MG TABLET PO SCH (09:26)
[2018-04-06] MEDS: NEBIVOLOL 10 MG TABLET PO SCH (09:26)
[2018-04-06] MEDS: ASPIRIN EC 81 MG TABLET PO SCH (09:26)
[2018-04-06] MEDS: FUROSEMIDE 80 MG TABLET PO SCH ×2 (09:27→15:58)
[2018-04-06] MEDS: PANTOPRAZOLE 40 MG TABLET PO SCH ×2 (09:27→21:12)
[2018-04-06] MEDS: DOXAZOSIN 1 MG TABLET PO SCH (09:27)
[2018-04-06] MEDS: COLCHICINE 0.6 MG TABLET PO SCH (09:27)
[2018-04-06] MEDS: INSULIN REGULAR 100 UNIT/ML SUBCUT SCH ×4 (09:28→21:12)
[2018-04-06] MEDS: POLYETHYLENE GLYCOL POWDER 17 GM PACK PO SCH (09:29)
[2018-04-06] MEDS: FLUTICASONE/SALMETEROL 500-50 DISKUS 14 DOSE INH SCH ×2 (09:29→21:13)
[2018-04-06] MEDS: LATANOPROST 0.005% OPH SOLN 2.5 ML BOTTLE BOTH EYES SCH (09:29)
[2018-04-06] MEDS: RIVAROXABAN 20 MG TABLET PO SCH (09:34)
[2018-04-06] MEDS: INSULIN NPH/REGULAR 70/30 100 UNIT/ML SUBCUT SCH ×2 (09:34→16:37)
[2018-04-06] MEDS: metOLazone 5 MG TABLET PO SCH (09:34)
[2018-04-06] MEDS: BACITRACIN OINT 28.35 GM TUBE TOP SCH (12:14)
[2018-04-06] MEDS: POTASSIUM CHLORIDE 20 MEQ TABLET PO PRN ×2 (18:41→21:14)
[2018-04-06] MEDS: BENZONATATE 100 MG CAPSULE PO SCH (21:11)
[2018-04-06] MEDS: MONTELUKAST 10 MG TABLET PO SCH (21:12)
[2018-04-07] MEDS: LEVOTHYROXINE 50 MCG TABLET PO SCH (05:45)
[2018-04-07] MEDS: INSULIN NPH/REGULAR 70/30 100 UNIT/ML SUBCUT SCH (10:19)
[2018-04-07] MEDS: INSULIN REGULAR 100 UNIT/ML SUBCUT SCH ×2 (10:19→12:12)
[2018-04-07] MEDS: IRON (CARBONYL)/VIT C/B12/FA TABLET PO SCH (10:20)
[2018-04-07] MEDS: ALLOPURINOL 100 MG TABLET PO SCH (10:20)
[2018-04-07] MEDS: ASPIRIN EC 81 MG TABLET PO SCH (10:20)
[2018-04-07] MEDS: CYANOCOBALAMIN 500 MCG TABLET PO SCH (10:20)
[2018-04-07] MEDS: COLCHICINE 0.6 MG TABLET PO SCH (10:20)
[2018-04-07] MEDS: RIVAROXABAN 20 MG TABLET PO SCH (10:20)
[2018-04-07] MEDS: PANTOPRAZOLE 40 MG TABLET PO SCH (10:21)
[2018-04-07] MEDS: DOCUSATE SODIUM 100 MG CAPSULE PO SCH (10:21)
[2018-04-07] MEDS: POLYETHYLENE GLYCOL POWDER 17 GM PACK PO SCH (10:21)
[2018-04-07] MEDS: NEBIVOLOL 10 MG TABLET PO SCH (10:21)
[2018-04-07] MEDS: CHOLECALCIFEROL 1,000 UNIT TABLET PO SCH (10:22)
[2018-04-07] MEDS: FUROSEMIDE 80 MG TABLET PO SCH (10:22)
[2018-04-07] MEDS: VERAPAMIL 120 MG TABLET PO SCH (10:22)
[2018-04-07] MEDS: DOXAZOSIN 1 MG TABLET PO SCH (10:22)
[2018-04-07] MEDS: BENZONATATE 100 MG CAPSULE PO SCH (10:23)
[2018-04-07] MEDS: LATANOPROST 0.005% OPH SOLN 2.5 ML BOTTLE BOTH EYES SCH (10:23)
[2018-04-07] MEDS: metOLazone 5 MG TABLET PO SCH (10:23)
[2018-04-07] MEDS: BACITRACIN OINT 28.35 GM TUBE TOP SCH (10:23)
[2018-04-07] MEDS: FLUTICASONE/SALMETEROL 500-50 DISKUS 14 DOSE INH SCH (10:23)
[2018-04-07 11:45] VITALS: BP 135/54
== END 2018-04-07 13:36 | disposition home health service (06) | DRG 291 ==
LOC: EDBD → EDUNIT# → N.ED 10:49 → N.EDINP 10:49 → SUATTDRO 16:45 → N.EDINP 17:40 → N.TELEN 17:58 → SUATTDRO 03-28 14:05
PROVIDERS: ATTEND Internal Medicine Nephrology

== ENCOUNTER 2018-06-05 14:28 | Inpatient (IN) ==
[2018-06-05] MEDS ORDERED: ONDANSETRON 4 MG/2 ML VIAL IV STA (15:00)
[2018-06-05] MEDS ORDERED: SODIUM CHLORIDE 0.9% 1,000 ML IV STA ×2 (15:00→18:22)
[2018-06-05 15:36] LABS: Basophils # 0.1 10*3/uL (0.0-0.2); Basophils % 0.5 % (0.0-0.8); Eosinophils # 0.1 10*3/uL (0.0-0.87); Eosinophils % 0.5 % (0.00-10.9); Hematocrit 34.9 VOL% (35.7-47.0); Hemoglobin 11.5 GM/DL (12.0-16.0); Immature Granulocytes % 0.8 %; Immature Granulocytes Absolute 0.07 #; Lymphocytes # 2.8 10*3/uL (1.4-4.0); Lymphocytes % 30.3 % (21.3-54.2); Mean Corpuscular Hemoglobin 31 PG (27-34); Mean Corpuscular Volume 93.8 FL (87-102); Monocytes # 1.2 10*3/uL (0.11-0.8); Monocytes % 12.6 % (1.7-12.7); Neutrophils # 5.1 10*3/uL (1.4-7.4); Neutrophils % 55.3 % (38.7-73.9); Platelet Count 161 T/CUMM (130-400); Red Blood Count 3.72 MC/CUMM (3.8-5.5); Red Cell Distribution Width 15.6 % (9.3-17.3); White Blood Count 9.3 T/CUMM (4-12)
[2018-06-05 15:59] LABS: Albumin 2.9 G/DL (3.4-5.0); Bilirubin,Total 1.1 MG/DL (0.2-1.0); Calcium 9.6 MG/DL (8.5-10.1); Osmolality,Calculated 301.2 MOS/KG (273-304); Potassium 3.1 MMOL/L (3.5-5.1); Total Protein 8.2 G/DL (6.4-8.3)
[2018-06-05 16:27] LABS: Apearance,Urine CLOUDY (Clear); Bacteria,Urine Few /HPF (Few); Bilirubin,Urine Negative (Negative); Blood, Urine Negative (Negative); Glucose,Urine (UA) Negative (Negative); Hyaline Casts,Urine 14 /LPF (0-3); Ketones,Urine Negative (Negative); Mucus,Urine Occasional /LPF (Occasional); Nitrite,Urine Negative (Negative); Protein,Urine Negative; RBC,Urine 2 /HPF (0-4); Squamous Epithelial Cell,Urine Occasional /HPF (0-10); Urine Color Yellow (Yellow); Urine Specific Gravity 1.009 (1.001-1.035); Urine Urobilinogen < 2.0 EU/DL (0.2-1.0); WBC,Urine 16 /HPF (0-6)
[2018-06-05] MEDS ORDERED: cefTRIAXone 1,000 MG in SODIUM CHLORIDE 0.9% 100 ML IV STA (17:16)
[2018-06-05 20:02] LABS: Troponin I 0.032 NG/ML (0.00-0.045)
[2018-06-05] MEDS ORDERED: GLUCAGON 1 MG VIAL IM PRN (20:36)
[2018-06-05] MEDS ORDERED: DEXTROSE 50% 25 GM/50 ML VIAL IV PRN (20:36)
[2018-06-05] MEDS ORDERED: ONDANSETRON 4 MG/2 ML VIAL IV PRN (20:36)
[2018-06-05] MEDS ORDERED: ALBUTEROL 2.5 MG/3 ML NEB RESP TX PRN ×2 (20:36→21:00)
[2018-06-05] MEDS: POTASSIUM CHLORIDE RIDER 10 MEQ in PREMIX 1 EACH IV SCH ×3 (21:38→23:55)
[2018-06-05] MEDS: FLUTICASONE/SALMETEROL 500-50 DISKUS 14 DOSE INH SCH (22:38)
[2018-06-05] MEDS: MONTELUKAST 10 MG TABLET PO SCH (22:39)
[2018-06-05] MEDS: INSULIN LISPRO 100 UNIT/ML SUBCUT SCH (22:39)
[2018-06-05] MEDS: NEBIVOLOL 10 MG TABLET PO SCH (22:39)
[2018-06-05] MEDS: POTASSIUM CHLORIDE INJ 20 MEQ in DEXTROSE 5% NACL 0.9% 1,000 ML IV SCH (22:40)
[2018-06-05] MEDS: ACETAMINOPHEN 325 MG TABLET PO PRN (22:55)
[2018-06-06 05:06] LABS: Basophils # 0.1 10*3/uL (0.0-0.2); Basophils % 0.6 % (0.0-0.8); Eosinophils % 0.3 % (0.00-10.9); Hematocrit 34.1 VOL% (35.7-47.0); Hemoglobin 11.1 GM/DL (12.0-16.0); Immature Granulocytes % 0.4 %; Immature Granulocytes Absolute 0.04 #; Lymphocytes # 2.5 10*3/uL (1.4-4.0); Lymphocytes % 28.1 % (21.3-54.2); Mean Corpuscular HGB Conc 32.6 GM/DL (32-36); Mean Corpuscular Hemoglobin 31 PG (27-34); Mean Corpuscular Volume 94.7 FL (87-102); Mean Platelet Volume 14.5 FL (9.6-12.0); Monocytes # 1.1 10*3/uL (0.11-0.8); Monocytes % 11.9 % (1.7-12.7); Neutrophils # 5.2 10*3/uL (1.4-7.4); Neutrophils % 58.7 % (38.7-73.9); Platelet Count 137 T/CUMM (130-400); Red Cell Distribution Width 15.6 % (9.3-17.3); White Blood Count 8.9 T/CUMM (4-12)
[2018-06-06 05:38] LABS: Albumin 2.6 G/DL (3.4-5.0); Bilirubin,Total 1.1 MG/DL (0.2-1.0); Calcium 9.3 MG/DL (8.5-10.1); Potassium 2.9 MMOL/L (3.5-5.1); Thyroid Stimulating Hormone 5.7 uIU/ml (0.358-3.74); Total Protein 7.6 G/DL (6.4-8.3)
[2018-06-06 05:41] LABS: Calcium 9.4 MG/DL (8.5-10.1); Osmolality,Calculated 307.8 MOS/KG (273-304); Potassium 2.9 MMOL/L (3.5-5.1); Troponin I 0.032 NG/ML (0.00-0.045)
[2018-06-06] MEDS ORDERED: LEVOTHYROXINE 50 MCG TABLET PO SCH (06:30)
[2018-06-06] MEDS ORDERED: MAGNESIUM SULF RIDER 4 GM in PREMIX 1 EACH IV PRN ×2 (06:45→07:24)
[2018-06-06] MEDS ORDERED: MAGNESIUM SULF RIDER 2 GM in PREMIX 1 EACH IV PRN (07:24)
[2018-06-06] MEDS ORDERED: metOLazone 5 MG TABLET PO SCH (09:00)
[2018-06-06] MEDS ORDERED: FLUTICASONE 50 MCG NASAL SPRAY 16 GM BOTTLE BOTH NARES PRN (09:00)
[2018-06-06] MEDS: PANTOPRAZOLE 40 MG VIAL IV SCH (10:03)
[2018-06-06] MEDS: MAGNESIUM SULF RIDER 2 GM in PREMIX 1 EACH IV PRN ×2 (10:03→12:40)
[2018-06-06] MEDS: NEBIVOLOL 10 MG TABLET PO SCH ×2 (10:51→22:52)
[2018-06-06] MEDS: INSULIN LISPRO 100 UNIT/ML SUBCUT SCH ×4 (10:51→21:53)
[2018-06-06] MEDS: ACETAMINOPHEN 325 MG TABLET PO PRN (11:41)
[2018-06-06] MEDS: POTASSIUM CHLORIDE 20 MEQ TABLET PO SCH (11:51)
[2018-06-06] MEDS: POTASSIUM CHLORIDE INJ 20 MEQ in DEXTROSE 5% NACL 0.9% 1,000 ML IV SCH (12:28)
[2018-06-06] MEDS: ALLOPURINOL 100 MG TABLET PO SCH (12:39)
[2018-06-06] MEDS: DOXAZOSIN 1 MG TABLET PO SCH (12:39)
[2018-06-06] MEDS: ASPIRIN EC 81 MG TABLET PO SCH (12:39)
[2018-06-06 15:26] LABS: Calcium 9.2 MG/DL (8.5-10.1); Potassium 3.2 MMOL/L (3.5-5.1)
[2018-06-06] MEDS: FLUTICASONE/SALMETEROL 500-50 DISKUS 14 DOSE INH SCH ×2 (15:40→22:53)
[2018-06-06] MEDS: DEXT 5% NACL 0.9% KCL 20 MEQ 20 MEQ/1,000 ML BAG IV SCH (15:40)
[2018-06-06] MEDS: LATANOPROST 0.005% OPH SOLN 2.5 ML BOTTLE BOTH EYES SCH (15:41)
[2018-06-06] MEDS: POTASSIUM CHLORIDE RIDER 10 MEQ in PREMIX 1 EACH IV PRN ×3 (15:48→23:40)
[2018-06-06] MEDS: cefTRIAXone 1,000 MG in SYRINGE 1 EACH IV SCH (17:37)
[2018-06-06] MEDS: MONTELUKAST 10 MG TABLET PO SCH (22:52)
[2018-06-07] MEDS: POTASSIUM CHLORIDE RIDER 10 MEQ in PREMIX 1 EACH IV PRN ×2 (01:40→08:54)
[2018-06-07 05:33] LABS: Basophils % 0.5 % (0.0-0.8); Eosinophils % 0.4 % (0.00-10.9); Hematocrit 31.3 VOL% (35.7-47.0); Hemoglobin 10.3 GM/DL (12.0-16.0); Immature Granulocytes % 0.5 %; Immature Granulocytes Absolute 0.04 #; Lymphocytes # 2.3 10*3/uL (1.4-4.0); Lymphocytes % 27.9 % (21.3-54.2); Mean Corpuscular HGB Conc 32.9 GM/DL (32-36); Mean Corpuscular Hemoglobin 31 PG (27-34); Mean Corpuscular Volume 95.1 FL (87-102); Mean Platelet Volume 13.1 FL (9.6-12.0); Monocytes # 1.2 10*3/uL (0.11-0.8); Monocytes % 14.6 % (1.7-12.7); Neutrophils # 4.6 10*3/uL (1.4-7.4); Neutrophils % 56.1 % (38.7-73.9); Platelet Count 135 T/CUMM (130-400); Red Blood Count 3.29 MC/CUMM (3.8-5.5); Red Cell Distribution Width 15.7 % (9.3-17.3); White Blood Count 8.2 T/CUMM (4-12)
[2018-06-07 05:51] LABS: Calcium 9.6 MG/DL (8.5-10.1); Osmolality,Calculated 310.7 MOS/KG (273-304); Potassium 3.6 MMOL/L (3.5-5.1)
[2018-06-07] MEDS: LEVOTHYROXINE 50 MCG TABLET PO SCH (06:23)
[2018-06-07] MEDS: PANTOPRAZOLE 40 MG VIAL IV SCH (09:00)
[2018-06-07] MEDS: POTASSIUM CHLORIDE 20 MEQ TABLET PO SCH (09:00)
[2018-06-07] MEDS: ALLOPURINOL 100 MG TABLET PO SCH (09:00)
[2018-06-07] MEDS: DOXAZOSIN 1 MG TABLET PO SCH (09:00)
[2018-06-07] MEDS: INSULIN LISPRO 100 UNIT/ML SUBCUT SCH ×4 (09:04→23:24)
[2018-06-07] MEDS: ASPIRIN EC 81 MG TABLET PO SCH (09:04)
[2018-06-07] MEDS: LATANOPROST 0.005% OPH SOLN 2.5 ML BOTTLE BOTH EYES SCH (09:04)
[2018-06-07] MEDS: DEXT 5% NACL 0.9% KCL 20 MEQ 20 MEQ/1,000 ML BAG IV SCH (09:11)
[2018-06-07] MEDS: FLUTICASONE/SALMETEROL 500-50 DISKUS 14 DOSE INH SCH (09:11)
[2018-06-07] MEDS: NEBIVOLOL 10 MG TABLET PO SCH ×2 (09:11→23:24)
[2018-06-07] MEDS: SODIUM CHLORIDE 0.9% 1,000 ML IV SCH (15:22)
[2018-06-07] MEDS: cefTRIAXone 1,000 MG in SYRINGE 1 EACH IV SCH (17:24)
[2018-06-07] MEDS: MONTELUKAST 10 MG TABLET PO SCH (21:51)
[2018-06-08 06:35] LABS: Basophils % 0.5 % (0.0-0.8); Eosinophils # 0.1 10*3/uL (0.0-0.87); Eosinophils % 0.6 % (0.00-10.9); Hematocrit 34.5 VOL% (35.7-47.0); Hemoglobin 11.2 GM/DL (12.0-16.0); Immature Granulocytes % 0.4 %; Immature Granulocytes Absolute 0.03 #; Lymphocytes # 2.6 10*3/uL (1.4-4.0); Lymphocytes % 30.7 % (21.3-54.2); Mean Corpuscular HGB Conc 32.5 GM/DL (32-36); Mean Corpuscular Hemoglobin 32 PG (27-34); Mean Corpuscular Volume 97.2 FL (87-102); Mean Platelet Volume 13.5 FL (9.6-12.0); Monocytes # 1.2 10*3/uL (0.11-0.8); Monocytes % 14.2 % (1.7-12.7); Neutrophils # 4.5 10*3/uL (1.4-7.4); Neutrophils % 53.6 % (38.7-73.9); Platelet Count 133 T/CUMM (130-400); Red Blood Count 3.55 MC/CUMM (3.8-5.5); Red Cell Distribution Width 15.9 % (9.3-17.3); White Blood Count 8.4 T/CUMM (4-12)
[2018-06-08 06:48] LABS: Calcium 9.7 MG/DL (8.5-10.1); Osmolality,Calculated 308.7 MOS/KG (273-304)
[2018-06-08] MEDS: LEVOTHYROXINE 50 MCG TABLET PO SCH (07:14)
[2018-06-08] MEDS: FLUTICASONE/SALMETEROL 500-50 DISKUS 14 DOSE INH SCH ×3 (07:23→21:00)
[2018-06-08] MEDS: SODIUM CHLORIDE 0.9% 1,000 ML IV SCH ×2 (07:54→18:36)
[2018-06-08] MEDS: INSULIN LISPRO 100 UNIT/ML SUBCUT SCH ×4 (08:32→22:13)
[2018-06-08] MEDS: MAGNESIUM SULF RIDER 2 GM in PREMIX 1 EACH IV PRN (08:32)
[2018-06-08] MEDS: PANTOPRAZOLE 40 MG VIAL IV SCH (08:33)
[2018-06-08] MEDS: POTASSIUM CHLORIDE 20 MEQ/15 ML UDCUP PO SCH (08:33)
[2018-06-08] MEDS: NEBIVOLOL 10 MG TABLET PO SCH ×2 (08:34→22:13)
[2018-06-08] MEDS: ALLOPURINOL 100 MG TABLET PO SCH (08:34)
[2018-06-08] MEDS: RIVAROXABAN 15 MG TABLET PO SCH (08:34)
[2018-06-08] MEDS: DOXAZOSIN 1 MG TABLET PO SCH (08:34)
[2018-06-08] MEDS: ASPIRIN EC 81 MG TABLET PO SCH (08:34)
[2018-06-08] MEDS: LATANOPROST 0.005% OPH SOLN 2.5 ML BOTTLE BOTH EYES SCH (08:35)
[2018-06-08] MEDS ORDERED: TUBERCULIN SKIN TEST 0.1 ML SYRINGE INTRADERM ONE (09:39)
[2018-06-08] MEDS: CIPROFLOXACIN 500 MG TABLET PO SCH ×2 (10:00→21:16)
[2018-06-08] MEDS ORDERED: SKIN HEALING OINT (AQUAPHOR) 50 GM TUBE TOP PRN (17:58)
[2018-06-08] MEDS: MONTELUKAST 10 MG TABLET PO SCH (21:18)
[2018-06-09 06:35] LABS: Osmolality,Calculated 308.4 MOS/KG (273-304); Potassium 4.6 MMOL/L (3.5-5.1)
[2018-06-09] MEDS: LEVOTHYROXINE 50 MCG TABLET PO SCH (07:06)
[2018-06-09] MEDS: INSULIN LISPRO 100 UNIT/ML SUBCUT SCH ×4 (08:38→21:23)
[2018-06-09] MEDS: POTASSIUM CHLORIDE 20 MEQ/15 ML UDCUP PO SCH (08:38)
[2018-06-09] MEDS: CIPROFLOXACIN 500 MG TABLET PO SCH ×2 (08:39→21:21)
[2018-06-09] MEDS: PANTOPRAZOLE 40 MG VIAL IV SCH (08:39)
[2018-06-09] MEDS: ALLOPURINOL 100 MG TABLET PO SCH (08:39)
[2018-06-09] MEDS: NEBIVOLOL 10 MG TABLET PO SCH ×2 (08:39→21:22)
[2018-06-09] MEDS: RIVAROXABAN 15 MG TABLET PO SCH (08:39)
[2018-06-09] MEDS: SODIUM CHLORIDE 0.9% 1,000 ML IV SCH (08:40)
[2018-06-09] MEDS: ASPIRIN EC 81 MG TABLET PO SCH (08:40)
[2018-06-09] MEDS: DOXAZOSIN 1 MG TABLET PO SCH (08:40)
[2018-06-09] MEDS: FLUTICASONE/SALMETEROL 500-50 DISKUS 14 DOSE INH SCH ×2 (08:43→21:22)
[2018-06-09] MEDS: LATANOPROST 0.005% OPH SOLN 2.5 ML BOTTLE BOTH EYES SCH (08:44)
[2018-06-09] MEDS: ACETAMINOPHEN 325 MG TABLET PO PRN (08:52)
[2018-06-09] MEDS ORDERED: PHENOL 1.4% THROAT SPRAY 177 ML BOTTLE PO PRN (11:21)
[2018-06-09] MEDS: MONTELUKAST 10 MG TABLET PO SCH (21:22)
[2018-06-10] MEDS: LEVOTHYROXINE 50 MCG TABLET PO SCH (06:23)
[2018-06-10] MEDS: PANTOPRAZOLE 40 MG VIAL IV SCH ×2 (09:55→10:50)
[2018-06-10] MEDS: CIPROFLOXACIN 500 MG TABLET PO SCH ×2 (09:55→21:52)
[2018-06-10] MEDS: ASPIRIN EC 81 MG TABLET PO SCH (09:55)
[2018-06-10] MEDS: ALLOPURINOL 100 MG TABLET PO SCH (09:55)
[2018-06-10] MEDS: RIVAROXABAN 15 MG TABLET PO SCH (09:55)
[2018-06-10] MEDS: DOXAZOSIN 1 MG TABLET PO SCH (09:55)
[2018-06-10] MEDS: NEBIVOLOL 10 MG TABLET PO SCH ×2 (09:55→21:52)
[2018-06-10] MEDS: FLUTICASONE/SALMETEROL 500-50 DISKUS 14 DOSE INH SCH ×2 (09:56→21:53)
[2018-06-10] MEDS: POTASSIUM CHLORIDE 20 MEQ/15 ML UDCUP PO SCH (09:56)
[2018-06-10] MEDS: LATANOPROST 0.005% OPH SOLN 2.5 ML BOTTLE BOTH EYES SCH (09:56)
[2018-06-10] MEDS: INSULIN LISPRO 100 UNIT/ML SUBCUT SCH ×4 (09:56→21:53)
[2018-06-10] MEDS ORDERED: oxyCODONE IR 5 MG TABLET PO PRN (19:18)
[2018-06-10] MEDS ORDERED: CYCLOBENZAPRINE 10 MG TABLET PO PRN (19:18)
[2018-06-10] MEDS: MONTELUKAST 10 MG TABLET PO SCH (21:52)
[2018-06-11] MEDS: LEVOTHYROXINE 50 MCG TABLET PO SCH (06:07)
[2018-06-11] MEDS: RIVAROXABAN 15 MG TABLET PO SCH (08:39)
[2018-06-11] MEDS: ALLOPURINOL 100 MG TABLET PO SCH (08:39)
[2018-06-11] MEDS: CIPROFLOXACIN 500 MG TABLET PO SCH (08:39)
[2018-06-11] MEDS: DOXAZOSIN 1 MG TABLET PO SCH (08:39)
[2018-06-11] MEDS: ASPIRIN EC 81 MG TABLET PO SCH (08:39)
[2018-06-11] MEDS: NEBIVOLOL 10 MG TABLET PO SCH (08:39)
[2018-06-11] MEDS: INSULIN LISPRO 100 UNIT/ML SUBCUT SCH ×2 (08:39→12:41)
[2018-06-11] MEDS: FLUTICASONE/SALMETEROL 500-50 DISKUS 14 DOSE INH SCH (08:40)
[2018-06-11] MEDS: LATANOPROST 0.005% OPH SOLN 2.5 ML BOTTLE BOTH EYES SCH (08:40)
[2018-06-11] MEDS: POTASSIUM CHLORIDE 20 MEQ/15 ML UDCUP PO SCH (08:40)
[2018-06-11] MEDS: PANTOPRAZOLE 40 MG VIAL IV SCH (08:40)
[2018-06-11 09:34] VITALS: BP 120/71
== END 2018-06-11 14:08 | disposition home health service (06) | DRG 683 ==
LOC: EDUNIT# → EDBD → N.ED 14:28 → N.EDINP 14:28 → N.5E 18:50 → SUATTDRO 06-06 10:50
PROVIDERS: ADMIT Internal Medicine; ATTEND Internal Medicine

== ENCOUNTER 2019-05-24 23:16 | Observation (INO) ==
[2019-05-25 00:40] LABS: ABG Base Excess 5.7 MMOL/L (-2.5-2.5); ABG HCO3 29.5 MMOL/L (20-26); ABG Oxygen Saturation 96.2 % (95-100); ABG PCO2 41.6 MM HG (35-48); ABG PH 7.464 (7.35-7.45); ABG PO2 79.9 MM HG (80-95); ABG TCO2 27.6 MMOL/L (23-27); Allen Test Positive
[2019-05-25 01:10] LABS: Albumin 1.7 G/DL (3.4-5.0); Bilirubin,Total 0.5 MG/DL (0.2-1.0); Calcium 10.7 MG/DL (8.5-10.1); Osmolality,Calculated 285.4 MOS/KG (273-304); Total Protein 7.5 G/DL (6.4-8.3)
[2019-05-25 01:21] LABS: Basophils # 0.1 10*3/uL (0.0-0.2); Basophils % 0.3 % (0.0-0.8); Eosinophils # 0.2 10*3/uL (0.0-0.87); Eosinophils % 1.3 % (0.00-10.9); Hematocrit 30.4 VOL% (35.7-47.0); Hemoglobin 9.3 GM/DL (12.0-16.0); Immature Granulocytes % 0.6 %; Lymphocytes # 2.7 10*3/uL (1.4-4.0); Lymphocytes % 15.3 % (21.3-54.2); Mean Corpuscular HGB Conc 30.6 GM/DL (32-36); Mean Platelet Volume 10.9 FL (9.6-12.0); Monocytes % 6.9 % (1.7-12.7); Neutrophils % 75.6 % (38.7-73.9); Platelet Count 149 T/CUMM (130-400); Red Cell Distribution Width 15.4 % (9.3-17.3); White Blood Count 17.4 T/CUMM (4-12)
[2019-05-25 02:02] LABS: Apearance,Urine CLEAR (Clear); Bacteria,Urine Occasional /HPF (Few); Bilirubin,Urine Negative (Negative); Blood, Urine Negative (Negative); Glucose,Urine (UA) 50 mg/dL (Negative); Hyaline Casts,Urine 4 /LPF (0-3); Ketones,Urine Negative (Negative); Mucus,Urine Occasional /LPF (Occasional); Nitrite,Urine Negative (Negative); Protein,Urine >=500 MG/DL; RBC,Urine 1 /HPF (0-4); Squamous Epithelial Cell,Urine Occasional /HPF (0-10); Urine Color Yellow (Yellow); Urine Specific Gravity 1.013 (1.001-1.035); Urine Urobilinogen < 2.0 EU/DL (0.2-1.0); WBC,Urine 2 /HPF (0-6)
[2019-05-25 02:09] LABS: Barbiturates Screen,Urine Negative (Negative); Benzodiazepines Screen,Urine Negative (Negative); Cannabinoid Screen,Urine Negative (Negative); Opiate Screen,Urine Positive (Negative); Phencyclidine Screen,Urine Negative (Negative)
[2019-05-25] MEDS ORDERED: LABETALOL 20 MG/4 ML SYRINGE IV ONE ×3 (02:42→03:58)
[2019-05-25] MEDS ORDERED: GLUCAGON 1 MG VIAL IM PRN (03:25)
[2019-05-25] MEDS ORDERED: ONDANSETRON 4 MG/2 ML VIAL IV PRN (03:25)
[2019-05-25] MEDS ORDERED: DEXTROSE 50% 25 GM/50 ML VIAL IV PRN (03:25)
[2019-05-25] MEDS ORDERED: ACETAMINOPHEN 325 MG TABLET PO PRN (03:25)
[2019-05-25 05:32] LABS: INR 1.1; PT Patient Result 11.7 SECS (9.6-12.2)
[2019-05-25] MEDS: AMPICILLIN/SULBACTAM 3,000 MG in SODIUM CHLORIDE 0.9% 100 ML IV SCH ×4 (06:32→21:54)
[2019-05-25 07:35] LABS: Basophils % 0.3 % (0.0-0.8); Eosinophils # 0.2 10*3/uL (0.0-0.87); Eosinophils % 1.3 % (0.00-10.9); Hematocrit 28.2 VOL% (35.7-47.0); Hemoglobin 8.5 GM/DL (12.0-16.0); Immature Granulocytes % 0.5 %; Immature Granulocytes Absolute 0.08 #; Lymphocytes # 2.2 10*3/uL (1.4-4.0); Lymphocytes % 14.1 % (21.3-54.2); Mean Corpuscular HGB Conc 30.1 GM/DL (32-36); Mean Corpuscular Volume 95.3 FL (87-102); Mean Platelet Volume 11.6 FL (9.6-12.0); Monocytes % 7.2 % (1.7-12.7); Neutrophils % 76.6 % (38.7-73.9); Platelet Count 210 T/CUMM (130-400); Red Blood Count 2.96 MC/CUMM (3.8-5.5); Red Cell Distribution Width 15.7 % (9.3-17.3); White Blood Count 15.6 T/CUMM (4-12)
[2019-05-25 07:49] LABS: Albumin 1.7 G/DL (3.4-5.0); Bilirubin,Total 1.1 MG/DL (0.2-1.0); Calcium 10.8 MG/DL (8.5-10.1); Osmolality,Calculated 293.8 MOS/KG (273-304)
[2019-05-25] MEDS: INSULIN REGULAR 100 UNIT/ML SUBCUT SCH ×4 (09:50→21:00)
[2019-05-25] MEDS: PANTOPRAZOLE 40 MG TABLET PO SCH (09:52)
[2019-05-25] MEDS: RIVAROXABAN 20 MG TABLET PO SCH (13:17)
[2019-05-26] MEDS: AMPICILLIN/SULBACTAM 3,000 MG in SODIUM CHLORIDE 0.9% 100 ML IV SCH ×4 (03:21→22:01)
[2019-05-26 05:56] LABS: Calcium 10.7 MG/DL (8.5-10.1); Osmolality,Calculated 296.4 MOS/KG (273-304)
[2019-05-26 06:54] LABS: Basophils # 0.1 10*3/uL (0.0-0.2); Basophils % 0.3 % (0.0-0.8); Eosinophils # 0.6 10*3/uL (0.0-0.87); Eosinophils % 3.5 % (0.00-10.9); Hematocrit 27.2 VOL% (35.7-47.0); Hemoglobin 8.1 GM/DL (12.0-16.0); Immature Granulocytes % 0.5 %; Immature Granulocytes Absolute 0.09 #; Lymphocytes # 2.4 10*3/uL (1.4-4.0); Lymphocytes % 13.7 % (21.3-54.2); Mean Corpuscular HGB Conc 29.8 GM/DL (32-36); Mean Corpuscular Volume 95.4 FL (87-102); Monocytes % 6.6 % (1.7-12.7); Neutrophils % 75.4 % (38.7-73.9); Platelet Count 271 T/CUMM (130-400); Red Blood Count 2.85 MC/CUMM (3.8-5.5); Red Cell Distribution Width 15.5 % (9.3-17.3); White Blood Count 17.2 T/CUMM (4-12)
[2019-05-26] MEDS ORDERED: MAGNESIUM CITRATE 300 ML BOTTLE PO ONE (09:13)
[2019-05-26] MEDS: RIVAROXABAN 20 MG TABLET PO SCH (09:41)
[2019-05-26] MEDS: INSULIN REGULAR 100 UNIT/ML SUBCUT SCH ×4 (09:41→20:32)
[2019-05-26] MEDS: PANTOPRAZOLE 40 MG TABLET PO SCH (10:15)
[2019-05-26] MEDS ORDERED: ACETAMINOPHEN 325 MG SUPP RECTAL PRN (10:26)
[2019-05-26] MEDS: PANTOPRAZOLE 40 MG VIAL IV SCH ×2 (12:28→21:38)
[2019-05-27] MEDS: AMPICILLIN/SULBACTAM 3,000 MG in SODIUM CHLORIDE 0.9% 100 ML IV SCH ×2 (04:40→12:40)
[2019-05-27 05:54] LABS: Basophils # 0.1 10*3/uL (0.0-0.2); Basophils % 0.3 % (0.0-0.8); Eosinophils # 0.7 10*3/uL (0.0-0.87); Eosinophils % 4.5 % (0.00-10.9); Hematocrit 26.3 VOL% (35.7-47.0); Immature Granulocytes % 0.6 %; Immature Granulocytes Absolute 0.09 #; Lymphocytes # 2.8 10*3/uL (1.4-4.0); Lymphocytes % 19.1 % (21.3-54.2); Mean Corpuscular HGB Conc 30.4 GM/DL (32-36); Mean Corpuscular Volume 94.9 FL (87-102); Mean Platelet Volume 11.2 FL (9.6-12.0); Monocytes % 7.3 % (1.7-12.7); Neutrophils % 68.2 % (38.7-73.9); Platelet Count 262 T/CUMM (130-400); Red Blood Count 2.77 MC/CUMM (3.8-5.5); Red Cell Distribution Width 15.7 % (9.3-17.3); White Blood Count 14.7 T/CUMM (4-12)
[2019-05-27 06:17] LABS: Osmolality,Calculated 292.6 MOS/KG (273-304)
[2019-05-27] MEDS ORDERED: POTASSIUM CHLORIDE 20 MEQ TABLET PO PRN (08:49)
[2019-05-27] MEDS: RIVAROXABAN 20 MG TABLET PO SCH (08:52)
[2019-05-27] MEDS: PANTOPRAZOLE 40 MG VIAL IV SCH (08:52)
[2019-05-27] MEDS: INSULIN REGULAR 100 UNIT/ML SUBCUT SCH ×2 (08:55→12:37)
[2019-05-27 13:45] VITALS: BP 128/79
== END 2019-05-27 14:42 ==
LOC: N.ED 23:16 → INTOOBSV 05-25 03:10 → N.EDINP 05-25 03:10 → N.5E 05-25 03:31
PROVIDERS: ADMIT Hospitalist; ATTEND Hospitalist